=== PATIENT | female | born 1975 | race Caucasian/White ===

== ENCOUNTER → 2019-10-10 10:26 | Outpatient (CLI) | payer OTHER, SELFPAY ==
--- NOTE | ~2019-10-10 | MM_ITS ---
EXAMINATION: MM screening [place] BI w randy HISTORY: Screening mammogram TECHNIQUE: Craniocaudal and mediolateral oblique 3-D tomosynthesis images were obtained and synthetic 2-D images were generated. CAD analysis was submitted and interpreted. COMPARISON: No prior mammogram is available for comparison at this institution. BREAST PARENCHYMAL COMPOSITION: The breasts are heterogeneously dense, which may obscure small masses ........... FINDINGS: There is no evidence of suspicious mass, calcification, or architectural distortion to sugg est malignancy in either breast. There has been no suspicious interval change. IMPRESSION: 1. No mammographic evidence of malignancy. 2. Recommend routine screening mammography in one year. BI-RADS Category 1: Negative Reviewed, dictated and finalized at location A.
--- NOTE | ~2019-10-10 | US_ITS ---
EXAMINATION: US transvaginal DATE: 10/10/2019 11:15 INDICATION: Menorrhagia TECHNIQUE: Multiple endovaginal sonographic images of the pelvis were obtained. COMPARISON: None. FINDINGS: The uterus measures 10.0 x 5.4 x 7.2 cm. There are several intramural fibroids in the uteru s which measure up to 1.6 cm. The endometrial complex measures 16 mm. The right ovary measures 1.8 x 1.3 x 2.5 cm. The left ovary measures 1.5 x 1.6 x 1.9 cm. There is normal vascular flow in the ovari es. There is no free fluid in the pelvis. IMPRESSION: 1. No sonographic correlate for the patient's symptoms. Reviewed, dictated and finalized at location B.
== END ==
PROVIDERS: Visit Provider Nurse Practitioner
DX: Z12.31 Encounter for screening mammogram for malignant neoplasm of breast (principal); N92.0 Excessive and frequent menstruation with regular cycle
CPT/HCPCS: 76830; 77063; 77067

== ENCOUNTER 2020-02-09 18:01 | Emergency (ER) | payer OTHER, SELFPAY ==
--- NOTE | ~2020-02-09 | XR_ITS ---
EXAMINATION: XR chest 2V EXAM DATE: 02/09/2020 19:03 INDICATION: Mid chest pain, shortness of breath on exertion. Dizziness. TECHNIQUE: Frontal and lateral projections of the chest obtained and reviewed. Comparison is made to prior examination from 07/05/2017. FINDINGS: The lungs are clear. There are no pleural effusions. The cardiomediastinal silhouette is within normal limits. There is no pneumothorax suspected. The bones and soft tissues are unremarkab le. There is no significant interval change. IMPRESSION: No acute cardiopulmonary findings. Reviewed, dictated and finalized at location A.
--- NOTE | 2020-02-09 18:06 | ECG_ITS ---
Measurements Intervals [place] Rate: 114 P: -19 IA: 124 QRS: -18 QRSD: 90 T: -20 QT: 298 QTc: 411 Interpretive Statements SINUS TACHYCARDIA MINIMAL Q WAVES- HIGH LATERAL LEADS BORDERLINE T WAVE ABNORMALITY- ANTEROLAT/INF LEADS BASELINE ARTIFACT- I, III, AVL ABNORMAL ECG Electronically Signed On 02-09-2020 19:48:04 CDT by Chris Sal D.O.
[2020-02-09 18:07] VITALS: BP 136/103; PULSE 117; RESP 19; TEMP 36.2; O2SAT 100
[2020-02-09 18:25] LABS: Basophils Absolute Auto 0.1 K/mm3 (0.0-0.1); Basophils Percent Auto 0.8 % (0.2-1.2); Eosinophils Absolute Auto 0.1 K/mm3 (0-0.3); Eosinophils Percent Auto 1.5 % (0-4.4); Hematocrit 39.9 % (37.0-47.0); Immature Granulocyte Absolute 0.03 K/mm3 (0.00-0.031); Immature Granulocyte Percent A 0.3 % (0-0.5); Lymphocytes Absolute Auto 1.92 K/mm3 (0.9-3.2); Lymphocytes Percent Auto 22.3 % (18.3-44.2); Mean Corpuscular HGB Conc 32.6 g/dl (32-36); Mean Corpuscular Hemoglobin 27.8 pg (26-34); Mean Corpuscular Volume 85.3 fl (80-100); Monocytes Absolute Auto 0.6 K/mm3 (0.1-0.6); Monocytes Percent Auto 6.7 % (2.6-8.5); Neutrophils Absolute Auto 5.9 K/mm3 (1.3-6.7); Neutrophils Percent Auto 68.4 % (45.5-73.1); Platelet Count Result 358 k/mm3 (150-375); Red Blood Count 4.68 M/mm3 (4.2-5.4); Red Cell Distribution Width 13.7 % (11.5-14.5); White Blood Count 8.6 K/mm3 (4.5-10.0)
[2020-02-09 18:39] LABS: Anion Gap 14.1 mmol/L (7-16); Blood Urea Nitrogen 14 mg/dL (7-17); Calcium 9.4 mg/dL (8.4-10.2); Carbon Dioxide 25 mmol/L (22-30); Chloride 101 mmol/L (98-107); Estimated CRCL calculation 98 ml/min; Estimated Glomerular Filt Rate > 60; Glucose 93 mg/dL (65-105); Potassium 4.1 mmol/L (3.4-5.0); Sodium 136 mmol/L (137-145)
[2020-02-09 18:47] LABS: Prothrombin Time 13.1 Seconds (11.1-14.7)
[2020-02-09 18:49] LABS: Partial Thromboplastin Time 30.9 SECONDS (22.3-36.8)
[2020-02-09 18:50] LABS: Troponin I < 0.012 ng/mL (0.000-0.034)
--- NOTE | 2020-02-09 20:03 | ED.CHESTPAIN ---
HPI - Chest Pain General Chief Complaint: Chest Pain Stated Complaint: High Blood Pressure Time Seen by Provider: 02/09/20 20:03 Source: patient and family Mode of arrival: ambulatory Limitations: no limitations History of Present Illness HPI narrative: Patient is a 44-year-old female with a history of hypertension, anxiety who presents for evaluation of chest pain. Patient has had chest pain intermittently over the past 48 hours. Pain is described as intermittently sharp in nature, in the center of her chest without radiation to her back. No abdominal pain. No nausea. Patient has had associated diaphoresis and shortness of breath. No calf swelling, edema or pain. She is not taking control. Patient did have a recent flight to [place] 3 weeks ago. Patient has a positive family history of coronary artery disease. She does not smoke. Patient denies any chest pain currently. Related Data Home Medications Medication Instructions Recorded Confirmed dextroamphetamine-amphetamine PO 02/09/20 [Adderall XR] lamotrigine 02/09/20 metoprolol succinate PO 02/09/20 venlafaxine mg PO 02/09/20 Allergies Allergy/AdvReac Type Severity Reaction Status Date / Time Penicillins Allergy Unknown Hives Verified 02/09/20 18:13 Review of Systems Review of Systems: Narrative: CONSTITUTIONAL: Denies fever, chills EYES: Denies visual changes, redness, or discharge. ENT: Denies rhinorrhea, congestion, sore throat, or otalgia. CARDIOVASCULAR: Denies current chest pain, palpitations, or edema. RESPIRATORY: Denies cough or current dyspnea. GASTROINTESTINAL: Denies abdominal pain, nausea, vomiting, or diarrhea. GENITOURINARY: Denies dysuria or hematuria. SKIN: Denies rash or itching. MUSCULOSKELETAL: Denies back pain, joint pain, or myalgia. NEUROLOGIC: Denies headache, numbness, or weakness. PSYCHIATRIC: History of anxiety [facility] Past Medical History Medical History (Updated 02/09/20 @ 21:58 by Sue Law MD) Hypertension Family History Family History (Updated 11/05/14 @ 08:26 by DOCTOR UNKNOWN) Other Diabetes mellitus Family history of coronary artery disease Social History Social History Smoking status: Never smoker Alcohol intake: never Gender identity (if verbalized by the patient): Female Exam Narrative: Exam Narrative: GENERAL: Awake, alert, conversant HEAD: Normocephalic, atraumatic. EYES: PERRLA and EOMI. ENT: Nares clear, no rhinorrhea or epistaxis. Mucous membranes moist. NECK: Supple. CHEST: No respiratory distress, breathing even and non labored HEART: Regular rate, sinus rhythm ABDOMEN:Non distended, non tender EXTREMITIES: Normal range of motion. No edema. No calf tenderness bilaterally. SKIN: Warm, dry, no rash. NEURO:No focal deficits. Alert and oriented x3 Course Vital Signs Vital signs: Vital Signs Temperature 36.2 C L 02/09/20 18:07 Pulse Rate 117 H 02/09/20 18:07 Respiratory Rate 19 02/09/20 18:07 Blood Pressure 136/103 H 02/09/20 18:07 Pulse Oximetry 100 02/09/20 18:07 Temperature 36.2 C L 02/09/20 18:07 Pulse Rate 82 02/09/20 21:13 Respiratory Rate 20 02/09/20 21:13 Blood Pressure 131/99 H 02/09/20 21:13 Pulse Oximetry 99 02/09/20 21:13 MDM - Chest Pain MDM Narrative Medical decision making narrative: Patient's EKG and labs are without significant high risk changes. Cardiac risk factors reviewed. Patient is felt low risk for ACS and reasonable for further risk stratification testing as an outpatient. Patient does have some atypical EKG findings, but normal d-dimer, thus I doubt PE, furthermore patient has no hypoxemia. Patient has 2 troponins which are undetected. Furthermore, pain was not sudden or maximal or onset without tearing or ripping quality. No other signs or symptoms to suggest aortic dissection. No pneumonia seen on evaluation today. Patient is felt to be a reasonab
[2020-02-09 20:10] VITALS: BP 125/88; PULSE 100; RESP 20; O2SAT 100
[2020-02-09] MEDS: ASPIRIN 81 MG CHEWABLE TABLET 324 MG PO (20:15)
--- NOTE | 2020-02-09 20:24 | PC.NURSE ---
CALLED LAB. NOTIFIED OF ADD ON LABS
[2020-02-09 20:57] LABS: D Dimer < 0.22 ug/mL (<0.48)
[2020-02-09 20:59] LABS: NT Pro B Type Natriuretic Pept 25 PG/ML (5-100)
[2020-02-09 21:13] VITALS: BP 131/99; PULSE 82; RESP 20; O2SAT 99
[2020-02-09 21:46] LABS: Troponin I < 0.012 ng/mL (0.000-0.034)
[2020-02-09 22:28] VITALS: BP 127/90; PULSE 94; RESP 20; O2SAT 99
== END 2020-02-09 22:30 | disposition home or self-care (01) ==
PROVIDERS: Emergency Medicine; Emergency Provider Emergency Medicine
DX: R07.89 Other chest pain (principal); I10 Essential (primary) hypertension; F41.9 Anxiety disorder, unspecified; R00.0 Tachycardia, unspecified; R94.31 Abnormal electrocardiogram [ECG] [EKG]
CPT/HCPCS: 36415; 71046; 80048; 83880; 84443; 84484; 85025; 85380; 85610; 85730; 93005; 99284; A9270

== ENCOUNTER 2020-03-11 11:01 | Emergency (ER) | payer OTHER, SELFPAY ==
--- NOTE | ~2020-03-11 | XR_ITS ---
EXAMINATION: XR abdomen/kub 1V DATE: 03/11/2020 14:41 INDICATION: Missing intrauterine device. Vaginal bleeding. TECHNIQUE: A supine view of the abdomen on 2 radiographs was obtained. COMPARISON: Ultrasound 03/11/2020 FINDINGS: There are no dilated loops of bowel. Calcifications in the pelvis are likely phleboliths. IMPRESSION: 1. No intrauterine device. Reviewed, dictated and finalized at location B. IMPRESSION: 1. No intrauterine device.
--- NOTE | ~2020-03-11 | US_ITS ---
EXAMINATION: US pelvic complete w TV DATE: 03/11/2020 12:44 INDICATION: Abnormal uterine bleeding. Intrauterine device. TECHNIQUE: Multiple transabdominal and transvaginal sonographic images of the pelvis were obtained. COMPARISON: Ultrasound 10/10/2019, CT 08/30/2019 FINDINGS: TRANSABDOMINAL ULTRASOUND: The uterus measures 8.8 x 6.2 x 5.1 cm. There is no free fluid in the pelvis. TRANSVAGINAL ULTRASOUND: The endometrial complex measures 11 mm in thickness. There is no intrauterine device. There is a 2.1 cm hypoechoic intramural fibroid. There is a 1.9 cm hypoechoic intramural fibroid. The right ovary me asures 2.6 x 1.8 x 2.5 cm. The left ovary measures 2.4 x 1.5 x 1.6 cm. IMPRESSION: 1. Uterine fibroids. 2. No intrauterine device identified. Reviewed, dictated and finalized at location B.
[2020-03-11 11:07] VITALS: BP 132/84; PULSE 94; RESP 16; TEMP 35.7; O2SAT 98
[2020-03-11 11:38] LABS: Basophils Absolute Auto 0.1 K/mm3 (0.0-0.1); Basophils Percent Auto 0.7 % (0.2-1.2); Eosinophils Absolute Auto 0.2 K/mm3 (0-0.3); Eosinophils Percent Auto 2.5 % (0-4.4); Hematocrit 34.1 % (37.0-47.0); Hemoglobin 11.5 g/dL (12.0-15.0); Immature Granulocyte Absolute 0.05 K/mm3 (0.00-0.031); Immature Granulocyte Percent A 0.5 % (0-0.5); Lymphocytes Absolute Auto 2.48 K/mm3 (0.9-3.2); Lymphocytes Percent Auto 26.1 % (18.3-44.2); Mean Corpuscular HGB Conc 33.7 g/dl (32-36); Mean Corpuscular Hemoglobin 28.4 pg (26-34); Mean Corpuscular Volume 84.2 fl (80-100); Monocytes Absolute Auto 0.6 K/mm3 (0.1-0.6); Monocytes Percent Auto 6.4 % (2.6-8.5); Neutrophils Percent Auto 63.8 % (45.5-73.1); Platelet Count Result 292 k/mm3 (150-375); Red Blood Count 4.05 M/mm3 (4.2-5.4); Red Cell Distribution Width 13.5 % (11.5-14.5); White Blood Count 9.5 K/mm3 (4.5-10.0)
--- NOTE | 2020-03-11 11:41 | ED.FEMALEGU ---
HPI - Female Genitourinary General Chief complaint: Vaginal Bleeding Stated complaint: vaginal bleeding Time Seen by Provider: 03/11/20 11:33 Source: patient Mode of arrival: ambulatory Limitations: no limitations History of Present Illness HPI Narrative: This is a 44-year-old female that presents to the emergency department for abnormal uterine bleeding. Reports she has been struggling with this for a while. She was supposed to get a D&C but with COVID heading they ended up putting an IUD to see if this helps. Reports she has had the IUD for the last 3 months. Reports she has had intermittent light bleeding since. Reports today she started having very heavy bleeding and was feeling lightheaded which prompted her to be seen. Denies fever, chest pain, shortness of breath, dysuria. Related Data Home Medications Medication Instructions Recorded Confirmed dextroamphetamine-amphetamine PO 02/09/20 [Adderall XR] lamotrigine 100 mg PO DAILY 02/09/20 metoprolol succinate PO 02/09/20 venlafaxine 75 mg PO 02/09/20 Allergies Allergy/AdvReac Type Severity Reaction Status Date / Time Penicillins Allergy Unknown Hives Verified 03/11/20 11:13 Review of Systems Review of Systems: Narrative: CONSTITUTIONAL: Denies fever CARDIOVASCULAR: Denies chest pain RESPIRATORY: Denies dyspnea. GASTROINTESTINAL: Denies abdominal pain, nausea, vomiting GENITOURINARY: Denies dysuria All systems reviewed & are unremarkable except as noted in HPI and below PMFSH Past Medical History Medical History (Updated 03/11/20 @ 15:54 by Rasheeda Drew PA-C) History of depression Hypertension Family History Family History (Updated 11/05/14 @ 08:26 by DOCTOR UNKNOWN) Other Diabetes mellitus Family history of coronary artery disease Social History Social History Smoking status: Never smoker Alcohol intake: never Gender identity (if verbalized by the patient): Female Exam Narrative: Exam Narrative: GENERAL: Well-appearing, obese, and in no acute distress. HEAD: Normocephalic, atraumatic. EYES: PERRLA and EOMI. NECK: Supple. No adenopathy or masses. CHEST: Clear to auscultation. No respiratory distress. No wheezes rales or rhonchi HEART: Regular rate and rhythm. No murmur heard. Normal peripheral pulses. ABDOMEN: Soft, nontender, nondistended, normal active bowel sounds. EXTREMITIES: Normal range of motion. No edema. SKIN: Warm, dry, no rash. NEURO: No focal deficits. Alert and oriented x3. PSYCH: Normal mood and affect Course Vital Signs Vital signs: Vital Signs Temperature 96.2 F L 03/11/20 11:07 Pulse Rate 94 03/11/20 11:07 Respiratory Rate 16 03/11/20 11:07 Blood Pressure 132/84 03/11/20 11:07 Pulse Oximetry 98 03/11/20 11:07 Temperature 96.2 F L 03/11/20 11:07 Pulse Rate 98 03/11/20 15:27 Respiratory Rate 20 03/11/20 15:27 Blood Pressure 146/90 H 03/11/20 15:27 Pulse Oximetry 99 03/11/20 15:27 MDM - Female Genitourinary MDM Narrative Medical decision making narrative: Patient presents the emergency department for abnormal uterine bleeding. Had an IUD placed 3 months ago. She is afebrile and nontoxic-appearing. Vitals are stable. She is not orthostatic. Hemoglobin is 11.5. Bedside test is negative. Pelvic ultrasound shows uterine fibroids. Her IUD was not identified. Abdomen x-ray also does not identify an IUD. Spoke with Dr. Paulnio about patient and work-up. Patient's IUD likely has fallen out at some time which is causing her to have heavy bleeding again. Patient will be started on Lysteda and will follow-up in clinic. Patient is stable and felt appropriate for further outpatient evaluation. She was given warnings to return to the ER Lab Data Attestation: I reviewed the patient's lab results. Result diagrams: 03/11/20 11:30 Labs: Lab Results 03/11/20 03/11/20 03/11/20 Range/Uni
[2020-03-11 12:19] LABS: Partial Thromboplastin Time 30.9 SECONDS (22.3-36.8)
[2020-03-11] MEDS: SODIUM CHLORIDE 0.9% IV 1,000 ML 999 ML IV CONT (12:38)
[2020-03-11 15:25] VITALS: BP 134/87; PULSE 96; RESP 20; O2SAT 99
[2020-03-11 15:26] VITALS: BP 144/84; PULSE 94; RESP 20; O2SAT 99
[2020-03-11 15:27] VITALS: BP 146/90; PULSE 98; RESP 20; O2SAT 99
[2020-03-11 16:12] VITALS: BP 144/84; PULSE 99; RESP 16; O2SAT 99
== END 2020-03-11 16:13 | disposition home or self-care (01) ==
PROVIDERS: Physician Assistant; Emergency Provider Emergency Medicine
DX: N93.8 Other specified abnormal uterine and vaginal bleeding (principal); T83.32XA Displacement of intrauterine contraceptive device, initial encounter; F32.9 Major depressive disorder, single episode, unspecified; I10 Essential (primary) hypertension; D25.9 Leiomyoma of uterus, unspecified
CPT/HCPCS: 36415; 74018; 76830; 76856; 81025; 85025; 85610; 85730; 86850; 86900; 86901; 96360; 99284; J7030

== ENCOUNTER 2020-04-26 02:38 | Outpatient (CLI) | payer OTHER, SELFPAY ==
[2020-04-26 23:12] LABS: SARS-CoV-2 RNA PCR Negative
== END 2020-04-26 02:39 | disposition home or self-care (01) ==
LOC: ANHCOVIDDT 02:38
PROVIDERS: PCP Nurse Practitioner Family; Visit Provider Obstetrics & Gynecology Gynecology
DX: Z01.812 Encounter for preprocedural laboratory examination (principal); Z20.828 Contact with and (suspected) exposure to other viral communicable diseases
CPT/HCPCS: 87635; C9803; U0003

== ENCOUNTER 2020-04-29 00:45 | Day surgery (SDC) | payer OTHER, SELFPAY ==
[2020-04-22 11:49] VITALS: BMI 34.9
--- NOTE | 2020-04-29 07:09 | PM.HPGS ---
History of Present Illness History of Present Illness Consent: Risks, benefits, and alternatives have been discussed and questions answered. Patient agrees to proceed with procedure. Chief complaint: Menorrhagia/ Uterine Fibroids Narrative: Inge Nicole is a 44 year old female with menorrhagia. Patient s/p hysteroscopy with EMB that was benign. Showed a sessile fibroid. Due to covid restricting surgery, placed IUD for attempted cycle control without success. Patient has decided to proceed with hysteroscopy, myomectomy, and endometrial ablation. Will remove IUD as well. Risks of infection, bleeding, perforation, and fluid imbalance reviewed. Discussed if unable to fully remove the fibroid due to fluid imbalance, would need to have another procedure. Success reviewed with patient for ablation. She agrees to proceed. [facility] Past Medical History Medical History (Updated 04/29/20 @ 07:15 by Emily Paulino MD) History of depression Hypertension (normal spontaneous vaginal delivery) x 2 Status post hysteroscopy Surgical History Surgical History (Updated 04/29/20 @ 07:13 by Emily Paulino MD) S/P tubal ligation Family History Family History (Updated 11/05/14 @ 08:26 by DOCTOR UNKNOWN) Other Diabetes mellitus Family history of coronary artery disease Social History Social History Smoking status: Never smoker Alcohol intake: never Gender identity (if verbalized by the patient): Female Spiritual care concerns: No Meds Home Medications and Allergies Home Medications Medication Instructions Recorded Confirmed Type lamotrigine 100 mg PO DAILY 02/09/20 04/22/20 History metoprolol succinate 25 mg PO DAILY 02/09/20 04/22/20 History venlafaxine 75 mg PO DAILY 02/09/20 04/22/20 History Vitamin D3 1 tablet PO DAILY 04/22/20 04/22/20 History albuterol sulfate 1 puff INHALATION Q4H PRN 04/22/20 04/22/20 History iron 1 tablet PO DAILY 04/22/20 04/22/20 History levonorgest-eth.estradiol-iron 1 tablet PO DAILY 04/22/20 04/22/20 History [Balcoltra] Allergies Allergy/AdvReac Type Severity Reaction Status Date / Time Penicillins Allergy Unknown Hives Verified 04/22/20 11:49 Exam Const: General: healthy appearing : External Female Exam: normal external appearance Speculum Exam - Vagina: normal appearance of the vagina Speculum Exam - Cervix: normal appearance of the cervix Bimanual exam- vagina & uterus: normal bimanual exam and uterine size normal Bimanual Exam- Adnexa, other: normal adnexae Assessment and Plan Assessment and plan (1) Menorrhagia: Code(s): N92.0 - Excessive and frequent menstruation with regular cycle Status: Acute Assessment and Plan: Plan to proceed with endometrial ablation and removal of IUD (2) Fibroids: Code(s): D21.9 - Benign neoplasm of connective and other soft tissue, unspecified Status: Acute Assessment and Plan: Plan myosure resection of sessile submucosal fibroid
[2020-04-29] MEDS: LACTATED RINGERS 1,000 ML 30 ML IV CONT ×2 (07:43→10:16)
[2020-04-29] MEDS: ACETAMINOPHEN 500 MG TABLET 1000 MG PO (07:43)
[2020-04-29 07:45] VITALS: BP 133/80; PULSE 86; RESP 20; TEMP 36.9; O2SAT 97
--- NOTE | 2020-04-29 07:52 | WPDHPUPDATE1 ---
History and Physical Update Update Date/Time: 04/29/20 07:52 History and Physical has been reviewed, including an updated exam of the patient. There are NO changes in the patient's condition. Risks, benefits, and alternatives have been discussed and questions answered. Patient agrees to proceed with procedure.
[2020-04-29] MEDS: ONDANSETRON INJ 4 MG/2 ML VIAL IV PUSH ×2 (07:55→10:14)
--- NOTE | 2020-04-29 08:13 | WPDANESEPPF ---
Anes - Initial Pre Proc Eval Procedure: Operation Date: 04/29/20 09:00 Proposed Procedures p Hysteroscopy, Dilation And Curettage With Myosure, Lyssa Endometrial Ablation - Emily Paulino MD Date/Time: 04/29/20 08:13 Surgeon: Emily Paluino MD Pre Op Diagnosis: Menorrhagia/ Uterine Fibroids Patient Data Age: 44 Gender: F Height: 5 ft 8 in Weight: 104.33 kg Allergies Allergy/AdvReac Type Severity Reaction Status Date / Time Penicillins Allergy Unknown Hives Verified 04/22/20 11:49 Home Medications Medication Instructions Recorded Confirmed Type lamotrigine 100 mg PO DAILY 02/09/20 04/22/20 History metoprolol succinate 25 mg PO DAILY 02/09/20 04/22/20 History venlafaxine 75 mg PO DAILY 02/09/20 04/22/20 History Vitamin D3 1 tablet PO DAILY 04/22/20 04/22/20 History albuterol sulfate 1 puff INHALATION Q4H PRN 04/22/20 04/22/20 History iron 1 tablet PO DAILY 04/22/20 04/22/20 History levonorgest-eth.estradiol-iron 1 tablet PO DAILY 04/22/20 04/22/20 History [Balcoltra] Patient hx anesthesia problems: none Family hx anesthesia problems: none PMFSH Past Medical History Medical History History of depression Hypertension (normal spontaneous vaginal delivery) x 2 Status post hysteroscopy Surgical History Surgical History S/P tubal ligation Family History Family History Other Diabetes mellitus Family history of coronary artery disease Social History Social History Smoking status: Never smoker Alcohol intake: never Gender identity (if verbalized by the patient): Female Spiritual care concerns: No Anes - Eval Final PreProcedure Day of Procedure 04/29/20 08:13 Patient weight: obese Heart: regular rate and rhythm Lungs: clear to auscultation Airway: Mallampati scale class II Neurological: alert and oriented Last oral intake: >/= 8 hours ASA classification: II Emergent: no Anesthetic plan: proceed Anesthesia type and monitoring: general GIVS and standard monitoring Informed Consent: The patient's anesthetic plan and its attendant risks and benefits were discussed with the patient/family/POA. Questions were solicited and answers provided to the satisfaction of the patient/family/POA.
--- NOTE | 2020-04-29 09:14 | PM.PROC ---
Procedure Note - Detailed Date of procedure: 04/29/20 Pre-op diagnosis: Menorrhagia/ Uterine Fibroids Post-op diagnosis: same Procedure performed: hysteroscopy; myosure resection of myoma; Lyssa endometrial ablation Description of procedure: The patient is taken to the operating room and placed under anesthesia in the dorsal lithotomy position. She is prepped and draped in the usual sterile fashion. A bivalve speculum is placed in the vagina and the cervix grasped on the anterior lip with a tenaculum. The cervix is serially dilated with Hegar. The uterus sounds to 10cm and the cervix is noted at 4cm. The diagnostic hysteroscope was placed with the stated findings. The MyoSure device is placed and the myoma removed until it is flush with the endometrial cavity. Medium sharp curette is used to sharply curette the endometrium until a good uterine cry is noted in all areas. The Lyssa device opened and placed the cavity assessment passed on the 1st attempt. The treatment cycle lasted the entire 2 minutes. The ablation device is removed and the hysteroscope replaced with a good ablation effect noted. All instruments are then removed. Anesthesia: MAC and local Surgeon: Emily Paulino MD Estimated blood loss (mL): 5 Drains: No Packing: No Pathology: yes (endometrial shavings and curettings) Complications: No immediate complications Condition: stable Disposition: PACU Findings: uterus 10 cm; cervix 4 cm; sessile submusosal fibroid at anterior fundus otherwise normal appearance
[2020-04-29 09:17] VITALS: BP 134/90; PULSE 83; RESP 14; O2SAT 100
[2020-04-29 09:40] VITALS: BP 143/90; PULSE 87; RESP 14
[2020-04-29] MEDS: oxyCODONE HCL (*CRX) 5 MG TAB IR PO (09:54)
[2020-04-29 10:15] VITALS: BP 140/89; PULSE 58; RESP 14
[2020-04-29 10:35] VITALS: BP 129/81; PULSE 49; RESP 14
== END 2020-04-29 10:45 | disposition home or self-care (01) ==
PROVIDERS: Visit Provider Obstetrics & Gynecology Gynecology
PROC: 0U5B8ZZ Destruction of Endometrium, Via Natural or Artificial Opening Endoscopic (ICD-10-PCS; CPT 58563; principal; 2020-04-29 09:00)
DX: N92.0 Excessive and frequent menstruation with regular cycle (principal); D25.9 Leiomyoma of uterus, unspecified; I10 Essential (primary) hypertension; F32.9 Major depressive disorder, single episode, unspecified; E66.9 Obesity, unspecified; Z68.34 Body mass index [BMI] 34.0-34.9, adult
CPT/HCPCS: 58563; 87635; 88305; A9270; C9803; J1885; J2250; J2405; J2704; J3010; J7030; J7120; U0003

== ENCOUNTER 2020-07-02 08:39 | Outpatient (NON) | payer OTHER, SELFPAY ==
[2020-07-03 01:42] LABS: SARS-CoV-2 RNA PCR Negative
== END 2020-07-02 08:40 ==
LOC: ANHCOVIDDT 08:40
PROVIDERS: Visit Provider Registered Nurse
DX: R51.9 Headache, unspecified (principal); R09.89 Other specified symptoms and signs involving the circulatory and respiratory systems; R19.7 Diarrhea, unspecified; Z20.828 Contact with and (suspected) exposure to other viral communicable diseases
CPT/HCPCS: 87635; C9803; U0003

== ENCOUNTER → 2021-07-16 02:15 | Outpatient (CLI) | payer OTHER, SELFPAY ==
[2021-07-17 02:22] LABS: SARS-CoV-2 RNA PCR Positive
== END ==
PROVIDERS: PCP Registered Nurse; Visit Provider Registered Nurse
DX: U07.1 COVID-19 (principal)
CPT/HCPCS: C9803; U0003; U0005

== ENCOUNTER 2021-12-23 15:53 | Outpatient (CLI) | payer OTHER, SELFPAY ==
[2021-12-23 16:10] LABS: Hematocrit 39.3 % (37.0-47.0); Hemoglobin 12.8 g/dL (12.0-15.0); Mean Corpuscular HGB Conc 32.6 g/dl (32-36); Mean Corpuscular Hemoglobin 29.6 pg (26-34); Platelet Count Result 343 k/mm3 (150-375); Red Blood Count 4.32 M/mm3 (4.2-5.4); Red Cell Distribution Width 13.4 % (11.5-14.5); White Blood Count 12.9 K/mm3 (4.5-10.0)
== END 2021-12-23 15:54 | disposition home or self-care (01) ==
LOC: ANHLAB 15:55
PROVIDERS: PCP Registered Nurse; Visit Provider Nurse Practitioner
DX: N92.0 Excessive and frequent menstruation with regular cycle (principal)
CPT/HCPCS: 36415; 85027

== ENCOUNTER 2022-06-18 18:30 | Observation (INO) | payer OTHER, SELFPAY ==
[2022-06-18 18:59] VITALS: BP 144/93; PULSE 101; RESP 18; TEMP 36.7; O2SAT 99
[2022-06-18 19:21] LABS: Basophils Absolute Auto 0.1 K/mm3 (0.0-0.1); Basophils Percent Auto 0.5 % (0.2-1.2); Eosinophils Absolute Auto 0.3 K/mm3 (0-0.3); Eosinophils Percent Auto 2.6 % (0-4.4); Hematocrit 36.4 % (37.0-47.0); Hemoglobin 11.6 g/dL (12.0-15.0); Immature Granulocyte Absolute 0.05 K/mm3 (0.00-0.031); Immature Granulocyte Percent A 0.4 % (0-0.5); Lymphocytes Absolute Auto 2.52 K/mm3 (0.9-3.2); Lymphocytes Percent Auto 19.5 % (18.3-44.2); Mean Corpuscular HGB Conc 31.9 g/dl (32-36); Mean Corpuscular Hemoglobin 26.6 pg (26-34); Mean Corpuscular Volume 83.5 fl (80-100); Mean Platelet Volume 8.9 fl (7.4-10.4); Monocytes Absolute Auto 0.6 K/mm3 (0.1-0.6); Monocytes Percent Auto 4.8 % (2.6-8.5); Neutrophils Absolute Auto 9.3 K/mm3 (1.3-6.7); Neutrophils Percent Auto 72.2 % (45.5-73.1); Platelet Count Result 443 k/mm3 (150-375); Red Blood Count 4.36 M/mm3 (4.2-5.4); White Blood Count 12.9 K/mm3 (4.5-10.0)
--- NOTE | 2022-06-18 19:36 | ED.FEMALEGU ---
HPI - Female Genitourinary General Chief complaint: Vaginal Bleeding Stated complaint: vaginal bleeding Time Seen by Provider: 06/18/22 19:30 Source: patient Mode of arrival: ambulatory Limitations: no limitations History of Present Illness HPI Narrative: Patient is a 46-year-old female with a history of uterine fibroids presenting for evaluation of vaginal bleeding. Patient reports she has had intermittent heavy vaginal bleeding over the past several months, has been on trials of tranexamic acid, hormonal therapy. She has had an endometrial ablation which did not improve her symptoms. Patient is scheduled for hysterectomy in December 2022. Patient reports mild pelvic cramping and distention. She states the bleeding significantly increased today feeling 1 pad every hour. She reports brisk bleeding and numerous large blood clots. Patient denies dysuria. She denies fever. She reports mild lightheadedness and dizziness. She denies syncopal event. Patient's SERVICE ORDER TAKER is Dr. Salazar, she was referred here for evaluation. Related Data Home Medications Medication Instructions Recorded Confirmed lamotrigine 100 mg tablet 100 mg PO DAILY 02/09/20 04/29/20 metoprolol succinate 25 mg 25 mg PO DAILY 02/09/20 04/29/20 tablet,extended release 24 hr venlafaxine 75 mg capsule,extended 75 mg PO DAILY 02/09/20 04/29/20 release 24 hr Vitamin D3 1 tablet PO DAILY 04/22/20 04/29/20 albuterol sulfate 90 mcg/actuation 1 puff inhalation Q4H PRN 04/22/20 04/29/20 aerosol inhaler Shortness Of Breath iron 1 tablet PO DAILY 04/22/20 04/29/20 levonorgestrel 0.1 1 tablet PO DAILY 04/22/20 04/29/20 mg-eth.estradiol 0.02 mg(21)/iron 36.5 mg(7) tablet (Balcoltra) Allergies Allergy/AdvReac Type Severity Reaction Status Date / Time Penicillins Allergy Unknown Hives Verified 06/18/22 19:33 Review of Systems Review of Systems: CONSTITUTIONAL: Denies fever, chills, or sweats. EYES: Denies visual changes, redness, or discharge. ENT: Denies rhinorrhea, congestion, sore throat, or otalgia. CARDIOVASCULAR: Denies chest pain, palpitations, or edema. RESPIRATORY: Denies cough or dyspnea. GASTROINTESTINAL: Denies abdominal pain, nausea, vomiting, or diarrhea. Reports mild pelvic pain. GENITOURINARY: Denies dysuria or hematuria. Reports vaginal bleeding without other discharge. SKIN: Denies rash or itching. MUSCULOSKELETAL: Denies back pain, joint pain, or myalgia. NEUROLOGIC: Denies headache, numbness, or weakness. Reports lightheadedness with standing. [facility] Past Medical History Medical History History of depression Hypertension (normal spontaneous vaginal delivery) x 2 Status post hysteroscopy Surgical History Surgical History S/P tubal ligation Family History Family History Other Diabetes mellitus Family history of coronary artery disease Social History Social History Smoking status: Never smoker Alcohol intake: never Gender identity (if verbalized by the patient): Female Spiritual care concerns: No Exam Narrative: GENERAL: Awake, alert, conversant HEAD: Normocephalic, atraumatic. EYES: PERRLA and EOMI. ENT: Nares clear, no rhinorrhea or epistaxis. Mucous membranes moist. NECK: Supple. CHEST: No respiratory distress, breathing even and non labored HEART: Regular rate, sinus rhythm ABDOMEN:Non distended, non tender : Labia majora and minora normal without lesions. Vagina with blood present; there is active bleeding. Approximately 15 cc blood present in vagina. No cervical motion tenderness. No adnexal tenderness or fullness bilaterally. No other discharge present. EXTREMITIES: Normal range of motion. No edema. SKIN: Warm, dry, no rash. NEURO:No focal deficits. Alert and oriented x3 [place]
[2022-06-18] MEDS: IBUPROFEN 600 MG TABLET PO (20:06)
[2022-06-18 20:36] LABS: Anion Gap 13 mmol/L (8-16); Blood Urea Nitrogen 18 mg/dL (7-17); Calcium 8.9 mg/dL (8.4-10.2); Carbon Dioxide 21 mmol/L (22-30); Chloride 104 mmol/L (98-107); Estimated CRCL calculation 89 ml/min; Estimated Glomerular Filt Rate > 60; Glucose 116 mg/dL (65-110); Potassium 3.9 mmol/L (3.4-5.0); Sodium 138 mmol/L (137-145)
[2022-06-18 20:37] LABS: INR 1.1; Partial Thromboplastin Time 30.6 SECONDS (22.3-36.8); Prothrombin Time 13.8 Seconds (11.1-14.7)
[2022-06-18] MEDS: ONDANSETRON INJ 4 MG/2 ML VIAL IV PUSH ×2 (20:47→21:26)
[2022-06-18] MEDS: TRANEXAMIC ACID 1,000MG/ISO100 1,000 MG/100 ML BAG 200 MG IVPB (20:49)
[2022-06-18 21:14] VITALS: BP 124/86; PULSE 96; RESP 18; O2SAT 100
--- NOTE | 2022-06-18 21:15 | PC.NURSE ---
2029-PATIENT WITH EMESIS X 3 OF UNDIGESTED FOOD. CHUX X ONE REMOVED. PAD HEAVILY SATURATED WITH BRIGHT RED BLOOD AND ONE BLOOD CLOT. NEW CHUX APPLIED. 2115-CHUX NUMBER TWO REMAINS UNDER PATIENT. MODERATELY SATURATED WITH THIN BRIGHT RED BLOOD. NO CLOTS. PATIENT C/O ABDOMINAL CRAMPING. REMAINS NAUSEATED.
[2022-06-18 21:34] LABS: Hematocrit 31.8 % (37.0-47.0); Hemoglobin 10.3 g/dL (12.0-15.0)
[2022-06-18] MEDS: SODIUM CHLORIDE 0.9% IV 1,000 ML 999 ML IV CONT (21:34)
[2022-06-18] MEDS: MORPHINE SULFATE (*CRX) 4 MG/ML INJ IV PUSH (21:35)
[2022-06-18 22:00] VITALS: BP 125/80; PULSE 80; RESP 20; O2SAT 100
--- NOTE | 2022-06-18 22:08 | PC.NURSE ---
2208-CHUX NUMBER TWO REMOVED. CHUX NUMBER TWO MODERATELY SATURATED WITH BRIGHT RED BLOOD BUT THIN IN APPEARANCE. NO CLOTS NOTED. PATIENT STATES SHE FEELS MUCH BETTER. DENIES PAIN OR NAUSEA.
--- NOTE | 2022-06-18 22:32 | PC.NURSE ---
2210-LARGE OB LOLI PAD APPLIED. ADVISED PATIENT NOT TO CHANGE PAD WITHOUT NOTIFYING STAFF.
--- NOTE | 2022-06-18 22:53 | PC.NURSE ---
6792-ATTEMPTED TO PROVIDE REPORT TO FLOOR. ROBERT STATES NURSE TAKING PATIENT IS IN A PATIENT ROOM AND WILL HAVE HER CALL ME BACK FOR REPORT. EXPLAINED TO ROBERT THIS RN LEAVES AT 2300 AND RECEIVING NURSE WILL BE TAKING REPORT FROM THIS NURSE'S REPLACEMENT.
--- NOTE | 2022-06-18 23:02 | PC.NURSE ---
2302-REPORT TO ROBERT LAY.
--- NOTE | 2022-06-18 23:25 | PC.NURSE ---
This patient was admitted to post Rm. 289 via stretcher.
[2022-06-18] MEDS: LACTATED RINGERS 1,000 ML 125 ML IV CONT (23:30)
--- NOTE | 2022-06-18 23:30 | PC.NURSE ---
2330- [place] pad had a small amount of bright red blood on it. New pad put on.
[2022-06-18 23:35] VITALS: BP 120/76; PULSE 65; RESP 18; TEMP 36.8
[2022-06-18 23:49] VITALS: BMI 30.2
[2022-06-19 00:06] LABS: SARS-CoV-2 RNA PCR Positive
--- NOTE | 2022-06-19 01:50 | PC.NURSE ---
0150- [place] pad had a small amount of blood on it with one quarter sized clot. New pad applied.
[2022-06-19] MEDS: TRANEXAMIC ACID 1,000 MG/10 ML AMPUL 1000 MG IV PUSH (03:43)
[2022-06-19 03:45] VITALS: BP 137/78; PULSE 74; RESP 18; TEMP 36.6; O2SAT 99
[2022-06-19] MEDS: ONDANSETRON INJ 4 MG/2 ML VIAL IV PUSH (03:49)
--- NOTE | 2022-06-19 03:50 | PC.NURSE ---
0350- [place] pad with small amount of blood noted and no clots. New pad applied.
[2022-06-19 03:57] LABS: Hematocrit 29.9 % (37.0-47.0); Hemoglobin 9.4 g/dL (12.0-15.0)
[2022-06-19] MEDS: IBUPROFEN 400 MG TABLET PO (07:28)
[2022-06-19] MEDS: LACTATED RINGERS 1,000 ML 125 ML IV CONT (07:29)
[2022-06-19 07:33] VITALS: BP 118/80; PULSE 77; RESP 18; TEMP 36.6; O2SAT 100
[2022-06-19] MEDS: TRANEXAMIC ACID 1,000MG/ISO100 1,000 MG/100 ML BAG 200 MG IVPB (10:03)
[2022-06-19] MEDS: ACETAMINOPHEN 325 MG TABLET 650 MG PO (10:18)
[2022-06-19] MEDS: medroxyPROGESTERone ACETATE IM 150 MG/ML SYR IM (10:31)
[2022-06-19 10:46] LABS: Hematocrit 28.9 % (37.0-47.0)
--- NOTE | 2022-06-19 19:47 | PC.NURSE ---
06/19/2022 All of this charting that will be mentioned was charted by Marge Barbosa RN under Anita Chery RN by mistake. I&O @ 1100, IV Line assessment @ 1245, Provider Communication Assessment @ 1107. Discharge Date & Time @ 1252. The charting itself is correct.
--- NOTE | 2022-06-20 09:26 | PM.IMHP ---
H&P: HPI History of Present Illness Date/Time: 06/19/22729 Chief Complaint: heavy vaginal bleeding Narrative: 46 yo admitted through the ER with heavy vaginal bleeding. Patient bleeding pad per hour for several hours. Patient given TXA IV in ER with resulting decrease in bleeding. Admitted overnight for continued TXA with good result. Patient bleeding down to light. Given 1 additional dose at 9:15 and discharged to continue oral dosing for 5 days. Patient with known fibroids and multiple conservative measures that have not been successful. Patient was planning hysterectomy but was trying to wait until next summer. She has been on Loestrin1.12/15 since early May. Review of Systems Review of Systems: All systems reviewed & are unremarkable except as noted in HPI and below (HPI) [facility] Past Medical History Medical History (Updated 06/20/22 @ 09:34 by Emily Paulino MD) History of depression and anxiety Hypertension (normal spontaneous vaginal delivery) x 2 Status post hysteroscopy Surgical History Surgical History (Updated 06/20/22 @ 09:32 by Emily Paulino MD) S/P endometrial ablation 2020 S/P myomectomy 2020 S/P tubal ligation Family History Family History (Updated 06/20/22 @ 09:32 by Emily Paulino MD) Father Hypertension Family history of coronary artery disease Grandparent Diabetes mellitus Social History Social History Smoking status: Never smoker Alcohol intake: never Lack of Transportation: No Lack of Food: Never True Current Housing: I Have Housing Concerned About Future Housing: No Difficulty Paying Gas/Electric Bills: No Difficulty Paying for Meds: No Currently Unemployed: No Education: Master's Degree or Higher Difficulty w/ Childcare or Family Care: No Gender identity (if verbalized by the patient): Female Spiritual care concerns: No Meds Home Medications and Allergies Home Medications Medication Instructions Recorded Confirmed Type lamotrigine 100 mg tablet 100 mg PO DAILY 02/09/20 06/18/22 History (Lamictal) venlafaxine 75 mg capsule,extended 75 mg PO BID 02/09/20 06/18/22 History release 24 hr Vitamin D3 1 tablet PO DAILY 04/22/20 06/18/22 History albuterol sulfate 90 mcg/actuation 1 puff inhalation Q4H PRN 10/05/20 12/01/22 History aerosol inhaler Shortness Of Breath dextroamphetamine-amphetamine ER 1 cap PO DAILY PRN ADHD 06/18/22 06/18/22 History 30 mg 24hr capsule,extend release tranexamic acid 650 mg tablet 1,300 mg PO Q8H #30 tabs 06/19/22 Rx Allergies Allergy/AdvReac Type Severity Reaction Status Date / Time Penicillins Allergy Unknown Hives Verified 06/18/22 19:33 Exam Narrative: patient tested + so I did not repeat the exam as it was done in the ER and recently in the office Const: General: no acute distress H&P: Results Labs Labs: Short CBC 06/19/22 Range/Units 10:27 Hgb 9.0 L (12.0-15.0) g/dL Hct 28.9 L (37.0-47.0) % Assessment and Plan Assessment and plan (1) Menorrhagia: Code(s): N92.0 - Excessive and frequent menstruation with regular cycle Status: Acute Assessment and Plan: Plan to discharge home on Lysteda 1300 mg TID x 5 days. Patient to call office to schedule hysterectomy. (2) Fibroids: Code(s): D21.9 - Benign neoplasm of connective and other soft tissue, unspecified Status: Acute (3) Anemia: Code(s): D64.9 - Anemia, unspecified Status: Acute Assessment and Plan: iron BID
--- NOTE | 2022-06-20 09:35 | PM.DS ---
DS: Admitting Diagnosis Discharge Date 06/19/22 Admitting Diagnosis menorrhagia anemia fibroids DS: Discharge Diagnosis Discharge Diagnosis (1) Menorrhagia: Code(s): N92.0 - Excessive and frequent menstruation with regular cycle Status: Acute (2) Uterine fibroid: Code(s): D25.9 - Leiomyoma of uterus, unspecified Status: Acute (3) Anemia: Code(s): D64.9 - Anemia, unspecified Status: Acute DS: Summary Hospital Course Reason for hospitalization: heavy vaginal bleeding Hospital Course: received TXA 1000 mg q 6 hours until discharge with resulting decrease in vaginal bleeding Status at Discharge Functional status at discharge: independent ambulation Overall status at discharge: patient is progressing back to baseline Time Spent with Patient Time attestation: Total time spent providing and/or coordinating discharge services: DS: Data Data Completed and Pending Labs on day of discharge: Labs from last 24 hours 06/19/22 10:27 Hgb 9.0 L Hct 28.9 L Discharge Plan Discharge Consulting providers: Emily Paulino Discharging Clinician: Emily Paulino Anticipated Discharge Date/Time: 06/19/22 12:30 Patient Disposition: Home, Self-Care Activity: as tolerated Diet: regular Discharge Instructions: Some Complications to Watch for: ? Excessive incisional or vaginal drainage (more than one pad an hour). Additional Instructions: ? Expect some vaginal spotting for 2-4 days. ? Nothing vaginally (i.e. douching, intercourse, tampons) until follow up visit. Patient Instructions: Abnormal (Dysfunctional) Uterine Bleeding (DC), COVID-19 (Coronavirus Disease 2019) (DC) Follow-up/Referrals: Emily Paulino MD [Physician] - Discharge Medications: New tranexamic acid 650 mg tablet 1,300 mg PO Q8H Qty: 30 1RF Continued venlafaxine 75 mg capsule,extended release 24hr 75 mg PO BID lamotrigine [Lamictal] 100 mg tablet 100 mg PO DAILY Vitamin D3 1 tablet PO DAILY albuterol sulfate 90 mcg/actuation HFA aerosol inhaler 1 puff INHALATION Q4H PRN (Reason: Shortness Of Breath) dextroamphetamine-amphetamine 30 mg capsule,extended release 24hr 1 cap PO DAILY PRN (Reason: ADHD) Discontinued norethindrone-e.estradiol-iron [Shannen Fe 1.5/30 (28)] 1.5 mg-30 mcg (21)/75 mg (7) tablet 1 tablet PO DAILY Date of admission: 06/18/22 22:16 Primary Care Provider: Eula,Sunita Admitting Provider: Emily Paulino Attending physician on admission: Emily Paulino Condition: Stable
== END 2022-06-19 12:52 | disposition home or self-care (01) ==
LOC: ANHED 22:20 → ANHOB2 22:46
PROVIDERS: Emergency Medicine; Admitting Provider Obstetrics & Gynecology Gynecology; Emergency Provider Emergency Medicine; PCP Registered Nurse; Visit Provider Obstetrics & Gynecology Gynecology
DX: N92.0 Excessive and frequent menstruation with regular cycle (principal); U07.1 COVID-19; N99.85 Post endometrial ablation syndrome; Z98.51 Tubal ligation status; R42 Dizziness and giddiness; D21.9 Benign neoplasm of connective and other soft tissue, unspecified; D64.9 Anemia, unspecified; F32.A Depression, unspecified; F41.9 Anxiety disorder, unspecified; I10 Essential (primary) hypertension; Z79.51 Long term (current) use of inhaled steroids; Z79.899 Other long term (current) drug therapy
CPT/HCPCS: 36415; 80048; 84443; 85014; 85018; 85025; 85610; 85730; 86850; 86900; 86901; 96361; 96365; 96372; 96374; 96375; 96376; 99285; A9270; G0378; J1050; J2270; J2405; J7030; J7120; U0003; U0005

== ENCOUNTER 2022-08-03 13:23 | Outpatient (CLI) | payer OTHER, SELFPAY ==
[2022-08-03 13:58] LABS: Hematocrit 36.9 % (37.0-47.0); Hemoglobin 11.5 g/dL (12.0-15.0)
== END 2022-08-03 13:24 | disposition home or self-care (01) ==
LOC: ANHSURGERY 13:28
PROVIDERS: PCP Registered Nurse; Visit Provider Obstetrics & Gynecology Gynecology
DX: Z01.818 Encounter for other preprocedural examination (principal); N92.0 Excessive and frequent menstruation with regular cycle
CPT/HCPCS: 36415; 85014; 85018; 86850; 86900; 86901

== ENCOUNTER 2022-08-10 10:26 | Inpatient (IN) | payer OTHER, SELFPAY ==
[2022-07-30 11:08] VITALS: BMI 30.4
--- NOTE | 2022-07-30 11:12 | PC.NURSE ---
Report to the Outpatient Waiting Room, entrance under the green pavilion located off [facility], at time 6:00 on date 08/10/22. Planned Procedure Time: 7:30. Time changes happen often and if your time is changed the preop area will call you the afternoon before. - You and your visitor will be asked to self-screen and do not enter if you have any COVID symptoms. - Only one visitor is requested with a max of two and NO children visitors are allowed at this time. - The patient visitor may be requested to leave or wait in car when not with patient due to distancing restrictions. - A mask is REQUIRED within the hospital. Patients may have clear liquids (water, carbonated beverages, clear teas, apple juice) until 3 hours prior to surgery (4:30) with a maximum of 20 ounces. - No food from midnight until time of surgery Take the following medications with a SIP of water the morning of surgery: LAMICTAL, EFFEXOR Medications to discontinue per physician: VITAMINS/SUPPLEMENTS Date to take last dose: 08/06/22 Please no make-up, nail korean, hairspray, perfume, deodorant, or body powder the day of surgery. No jewelry (including any body piercings) or valuables the day of surgery, leave them at home. Please take a shower or bath the night before, or the morning of, surgery with an antibacterial soap. Wear comfortable, loose fitting clothing. - Jewelry must be removed prior to entering the operating room. Rings and piercings that are not removed may be cut off. - The hospital will not accept responsibility for valuables. - Please leave all valuables, including medications, at home the day of surgery. If you are going home after surgery, a licensed seasonal driver must drive you home. - NO public transportation without another adult if you receive anesthesia. - We recommend that an adult stay with you for 24 hours following discharge. - We also recommend that you do not drive, make important decision, drink alcoholic beverages, or take any drugs that were not prescribed by your health care provider for at least 24 hours after your discharge time. Follow any additional instructions given to you from your surgeon. If you or anyone in your household have experienced Covid symptoms in the past week, please notify your surgeon or the nurse liaison at the phone number below for possible testing. Telephone instructions given to PT Gia VAUGHAN and asked if any additional questions and then verbalized understanding. Patient advised to call surgeon office or pre surgery nurse liaison [phone] if any additional questions.
[2022-08-10] VITALS (27 sets, daily range): BP systolic 126–152; BP diastolic 71–97; PULSE 51–92; RESP 12–18; TEMP 36.1–36.9; O2SAT 91–100
--- NOTE | 2022-08-10 06:51 | WPDANESEPPF ---
Anes - Initial Pre Proc Eval Procedure: Operation Date: 08/10/22 07:30 Proposed Procedures p Total Abdominal Hysterectomy with Bilateral Salpingo-oophorectomy - Emily Paulino MD Date/Time: 08/10/22 06:51 Surgeon: Emily Paulino MD Pre Op Diagnosis: Menorrhagia Patient Data Age: 46 Gender: F Height: 1.73 m Weight: 90.72 kg Allergies Allergy/AdvReac Type Severity Reaction Status Date / Time Penicillins Allergy Unknown Hives Verified 08/10/22 06:53 Home Medications Medication Instructions Recorded Confirmed Type lamotrigine 100 mg tablet 100 mg PO DAILY 02/09/20 07/30/22 History (Lamictal) venlafaxine 75 mg capsule,extended 75 mg PO BID 02/09/20 07/30/22 History release 24 hr dextroamphetamine-amphetamine ER 1 cap PO DAILY PRN ADHD 06/18/22 07/30/22 History 30 mg 24hr capsule,extend release multivitamin 1 tablet PO DAILY 07/30/22 07/30/22 History ECG: Date of Service: 02/09/20 Procedure(s): CA 12 lead EKG Accession Number(s): [id number] cc: ~ ? Measurements Intervals? [place]? Rate: ? 114? P:? -19 MT: ? 124? QRS:? -18 QRSD: ? 90 ? T:? -20 QT: ? 298? QTc:? 411? Interpretive Statements SINUS TACHYCARDIA MINIMAL Q WAVES- HIGH LATERAL LEADS BORDERLINE T WAVE ABNORMALITY- ANTEROLAT/INF LEADS BASELINE ARTIFACT- I, III, AVL ABNORMAL ECG Electronically Signed On 02-09-2020 19:48:04 CDT by Chris Sal D.O. Patient hx anesthesia problems: none Family hx anesthesia problems: none Results Review: All pre-operative results and documents have been reviewed as part of the pre-operative evaluation. [facility] Past Medical History Medical History (Updated 08/10/22 @ 06:53 by Wayne Doyle MD) Asthma History of depression and anxiety Hypertension (normal spontaneous vaginal delivery) x 2 Status post hysteroscopy Surgical History Surgical History (Updated 06/20/22 @ 09:32 by Emily Paulino MD) S/P endometrial ablation 2019 S/P myomectomy 2019 S/P tubal ligation Family History Family History (Updated 06/20/22 @ 09:33 by Emily Paulino MD) Father Hypertension Family history of coronary artery disease Grandparent Diabetes mellitus Social History Social History Smoking status: Never smoker Alcohol intake: current Drinks per week: 1 Substance use: never Substance use type: does not use Lack of Transportation: No Lack of Food: Never True Current Housing: I Have Housing Concerned About Future Housing: No Difficulty Paying Gas/Electric Bills: No Difficulty Paying for Meds: No Currently Unemployed: No Education: Master's Degree or Higher Difficulty w/ Childcare or Family Care: No Living arrangements: with family Gender identity (if verbalized by the patient): Female Spiritual care concerns: No Anes - Eval Final PreProcedure Day of Procedure 08/10/22 06:51 Patient weight: obese Heart: regular rate and rhythm Lungs: clear to auscultation Airway: Mallampati scale class II Neurological: alert and oriented Last oral intake: >/= 8 hours ASA classification: II Emergent: no Anesthetic plan: proceed Anesthesia type and monitoring: general ETT and standard monitoring Results Review: All pre-operative results and documents have been reviewed as part of the pre-operative evaluation. Informed Consent: The patient's anesthetic plan and its attendant risks and benefits were discussed with the patient/family/POA. Questions were solicited and answers provided to the satisfaction of the patient/family/POA.
[2022-08-10] MEDS: ACETAMINOPHEN 500 MG TABLET 1000 MG PO (06:58)
[2022-08-10] MEDS: LACTATED RINGERS 1,000 ML 30 ML IV CONT ×3 (07:05→09:41)
[2022-08-10] MEDS: KETOROLAC 15 MG/ML VIAL (*BKC) IV PUSH (07:10)
--- NOTE | 2022-08-10 07:13 | WPDHPUPDATE1 ---
History and Physical Update Update Date/Time: 08/10/22 07:13 History and Physical has been reviewed, including an updated exam of the patient. There are NO changes in the patient's condition. Risks, benefits, and alternatives have been discussed and questions answered. Patient agrees to proceed with procedure.
--- NOTE | 2022-08-10 07:13 | PM.IMHP ---
H&P: HPI History of Present Illness Date/Time: 08/10/22 07:13 Chief Complaint: menorrhagia with anemia Narrative: The patient is a 46 year all with menorrhagia that has failed conservative treatment including medications and endometrial ablation. The patient has known multiple fibroids. The initial plan was to continue medications and proceed with hysterectomy in the summer however the patient had a severe bleeding episode and during her anemic and requiring any emergency room visit. The plan is to proceed now with total abdominal hysterectomy bilateral salpingo-oophorectomy. The patient has elected to take hormone replacement therapy after surgery. Risks of infection, bleeding injury to internal organs ( bowel, bladder, ureters), deep vein thrombosis, and anesthesia were reviewed with the patient. The patient voices understanding and agrees to proceed. Review of Systems Musculoskeletal: Musculoskeletal: Reports arthralgias PMFSH Past Medical History Medical History (Updated 08/10/22 @ 07:16 by Emily Paulino MD) Asthma History of depression and anxiety ADHD Hypertension (normal spontaneous vaginal delivery) x 2 Status post hysteroscopy Surgical History Surgical History (Updated 06/20/22 @ 09:32 by Emily Paulino MD) S/P endometrial ablation 2020 S/P myomectomy 2020 S/P tubal ligation Family History Family History (Updated 06/20/22 @ 09:33 by Emily Paulino MD) Father Hypertension Family history of coronary artery disease Grandparent Diabetes mellitus Social History Social History Smoking status: Never smoker Alcohol intake: current Drinks per week: 1 Substance use: never Substance use type: does not use Lack of Transportation: No Lack of Food: Never True Current Housing: I Have Housing Concerned About Future Housing: No Difficulty Paying Gas/Electric Bills: No Difficulty Paying for Meds: No Currently Unemployed: No Education: Master's Degree or Higher Difficulty w/ Childcare or Family Care: No Living arrangements: with family Gender identity (if verbalized by the patient): Female Spiritual care concerns: No Meds Home Medications and Allergies Home Medications Medication Instructions Recorded Confirmed Type lamotrigine 100 mg tablet 100 mg PO DAILY 02/09/20 08/10/22 History (Lamictal) venlafaxine 75 mg capsule,extended 75 mg PO BID 02/09/20 08/10/22 History release 24 hr dextroamphetamine-amphetamine ER 1 cap PO DAILY PRN ADHD 06/18/22 08/10/22 History 30 mg 24hr capsule,extend release multivitamin 1 tablet PO DAILY 07/30/22 08/10/22 History Allergies Allergy/AdvReac Type Severity Reaction Status Date / Time Penicillins Allergy Unknown Hives Verified 08/10/22 06:53 Exam Const: General: healthy appearing and alert Orientation/consciousness: patient oriented x3 Resp: Effort & Inspection: normal respiratory effort Auscultation: clear to auscultation bilaterally Cardio: Rate: regular rate Rhythm: regular rhythm GI: GI Palp: Yes Soft to palpation, No Tenderness to palpation present (GI) and No Palpable mass present : External Female Exam: normal external appearance Speculum Exam - Vagina: normal appearance of the vagina and normal vaginal discharge Speculum Exam - Cervix: normal appearance of the cervix Bimanual exam- vagina & uterus: enlarged ( and Scharff) Bimanual Exam- Adnexa, other: normal adnexae and No adnexal tenderness Neuro: General: patient oriented x3 Assessment and Plan Assessment and plan (1) Menorrhagia: Code(s): N92.0 - Excessive and frequent menstruation with regular cycle Status: Acute Assessment and Plan: plan is to proceed with total abdominal hysterectomy and bilateral salpingo-oophorectomy (2) Fibroids: Code(s): D21.9 - Benign neoplasm of connective and other soft tissue, unsp
[2022-08-10] MEDS: ceFAZolin 2 GM/D5W 50 ML 2 GM/50 ML BAG IVPB (07:27)
--- NOTE | 2022-08-10 09:07 | W.PM.PROC2 ---
Procedure Note - Detailed Date of Procedure 08/10/22 Pre-op Diagnosis Menorrhagia, Fibroids Post-op Diagnosis Same Procedure Performed total abdominal hysterectomy with bilateral salpingo-oophorectomy Surgeon Emily Paulino MD Anesthesia General Findings enlarged fibroid uterus; normal-appearing tubes and ovaries with evidence of prior tubal ligation Description of Procedure The patient is taken to the operating room and placed under anesthesia in the dorsal supine position. She was prepped and draped in usual sterile fashion. A Pfannenstiel skin incision was made with a scalpel and carried down to the underlying layer of fascia. The subcutaneous tissue is made hemostatic using Bovie cautery. There are extensive perforating vessels that bled. The fascia is nicked in the midline with a scalpel and extended laterally using Porras scissors. Bleeding vessels and the fascia are also cauterized. The fascia is grasped anteriorly with Selamner is and tented. The fascia was dissected off using sharp and blunt dissection. Again perforating vessels bladder. These were cauterized. The posterior fascia was grasped with Melony nurse and tented and the fascia dissected off using sharp and blunt dissection. Bleeding vessels were cauterized.The rectus muscles are in the midline. The peritoneum was tented and entered with Metzenbaum scissors. The incision was extended with blunt traction. The bowel was packed away using moist laparotomy sponges and the Cony retractor is placed. The uterus is grasped on the cornu with large peans. The round ligaments were doubly ligated with 0 Vicryl transected and the anterior leaf of the broad ligament incised meeting in the middle. The bladder was dissected off using sharp and blunt dissection. Perforating vessels are cauterized. The utero-ovarian ligament is isolated by creating a window in the posterior leaf of the broad ligament and doubly clamping the ligament. The pedicle is transected and suture ligated with 0 Vicryl. The identical procedure was performed on the right side. The uterine vessels are skeletonized, clamped, transected, and suture ligated with 0 Vicryl. The cardinal and uterosacral ligaments are serially clamped, transected, and suture ligated with 0 Vicryl. The uterosacral ligaments were tagged for future use. The scalpel was used to incise the midline of the vagina. The Allis clamps were used to grasp the vaginal cuff as the specimen was amputated with Rachel scissors. The vaginal cuff was then closed using 0 Vicryl in a running locked fashion. Each angle was tied to the ipsilateral uterosacral ligaments that were previously tagged. The bladder flap several bleeding vessels that were cauterized and an additional [id number] suture of 0 Vicryl was required for hemostasis. The pelvis is irrigated and the pedicles were noted to be hemostatic. The peritoneum posterior to the right uterosacral is oozing and a [id number] suture was placed. Good hemostasis at the peritoneum, bladder flap, and all pedicles is then noted. The sponges and instruments are removed. The fascia was closed using 0 Vicryl in a running fashion. Subcutaneous tissues were irrigated and a few vessels are cauterized resulting in hemostasis. The skin is closed using 4-0 Vicryl in a subcuticular fashion. Dermaflex was placed over the incision. Sponge, needle, and instrument counts are correct per the OR staff. Patient was awakened from anesthesia and taken to recovery in stable condition. Estimated Blood Loss 300 Drains Yes ( Barney catheter) Packing No Pathology Yes ( uterus, tubes, ovaries) Complications No immediate complications Condition Stable Disposition PACU
--- NOTE | 2022-08-10 09:14 | PM.DS ---
DS: Admitting Diagnosis Discharge Date 08/12/22 Admitting Diagnosis menorrhagia with anemia and fibroids DS: Discharge Diagnosis Discharge Diagnosis (1) Status post SHAQUILLE-BSO: Code(s): Z90.710 - Acquired absence of both cervix and uterus; Z90.722 - Acquired absence of ovaries, bilateral; Z90.79 - Acquired absence of other genital organ(s) Status: Acute DS: Summary Hospital Course Hospital Course: At the time of discharge, the patient is voiding, ambulating, and tolerating a regular diet. Pain is well controlled. Status at Discharge Functional status at discharge: independent ambulation Overall status at discharge: patient is progressing back to baseline Time Spent with Patient Time attestation: Total time spent providing and/or coordinating discharge services: DS: Data Data Completed and Pending Pending studies at discharge: Pending at discharge 08/10/22 09:01 Surgical [PTH] Routine Discharge Plan Discharge Attending physician on discharge: Emily Paulino Discharging Clinician: Daria Reynolds Patient Disposition: Home, Self-Care Activity: may shower, may drive after 2 weeks and pelvic rest Diet: regular Wound Care Instructions: incision open to air Discharge Instructions: Pelvic rest, no driving for 2 weeks, no heavy lifting. You may take Ibuprofen 600mg every 6 hours. GasX as needed for gas pain. Colace as needed for constipation. Patient Instructions: Laparoscopic Hysterectomy (DC) Stand Alone Forms: General Discharge Instructions Follow-up/Referrals: Emily Paulino MD [Physician] - 1 Week ( and 6 weeks) Discharge Medications: New hydrocodone-acetaminophen 5-325 mg tablet 1 tablet PO Q4H PRN (Reason: pain) Qty: 20 0RF estradiol [Climara] 0.05 mg/24 hr patch weekly 1 patch transdermal WEEKLY 360 Days Qty: 4 11RF Continued venlafaxine 75 mg capsule,extended release 24hr 75 mg PO BID lamotrigine [Lamictal] 100 mg tablet 100 mg PO DAILY multivitamin Tablet 1 tablet PO DAILY dextroamphetamine-amphetamine 30 mg capsule,extended release 24hr 1 cap PO DAILY PRN (Reason: ADHD) Date of admission: 08/10/22 10:26 Primary Care Provider: EulaSunita Admitting Provider: Emily Paulino Attending physician on admission: Daria Reynolds Condition: Stable
[2022-08-10] MEDS: SCOPOLAMINE 1.5 MG PATCH TRANSDERM (09:35)
[2022-08-10] MEDS: HALOPERIDOL LACTATE 5 MG/ML VIAL 1 MG IV PUSH (09:35)
[2022-08-10] MEDS: fentaNYL CITRATE INJ (*CRX) 100 MCG/2 ML VIAL 25 MCG IV PUSH ×8 (09:40→10:08)
[2022-08-10] MEDS: DEXTROSE 5%/LACTATED RINGERS 1,000 ML 125 ML IV CONT ×2 (11:07→19:27)
[2022-08-10] MEDS: ESTRADIOL 7 DAY 0.05 MG PATCH TRANSDERM (11:11)
[2022-08-10] MEDS: FENTANYL 600MCG/NS30MLPCA(*CRX 600 MCG/30 ML PCA.VIAL IV CONT (11:16)
--- NOTE | 2022-08-10 11:39 | OBPPTRN ---
1032 Patient transferred to post room #281 via bed. Oriented to unit, room, information board, admission packet and security measures. Patient verbalizes understanding.
[2022-08-10] MEDS: KETOROLAC 30 MG/ML VIAL (*BKC) IV PUSH ×2 (14:10→19:50)
[2022-08-10] MEDS: ONDANSETRON INJ 4 MG/2 ML VIAL IV PUSH (15:27)
[2022-08-11] VITALS (10 sets, daily range): BP systolic 103–138; BP diastolic 62–79; PULSE 61–75; RESP 16–18; TEMP 36.6–37.2; O2SAT 97–100
[2022-08-11] MEDS: KETOROLAC 30 MG/ML VIAL (*BKC) IV PUSH ×2 (01:40→07:21)
[2022-08-11 05:34] LABS: Basophils Percent Auto 0.3 % (0.2-1.2); Eosinophils Absolute Auto 0.1 K/mm3 (0-0.3); Eosinophils Percent Auto 0.7 % (0-4.4); Hematocrit 29.3 % (37.0-47.0); Hemoglobin 9.4 g/dL (12.0-15.0); Immature Granulocyte Absolute 0.04 K/mm3 (0.00-0.031); Immature Granulocyte Percent A 0.3 % (0-0.5); Lymphocytes Absolute Auto 2.23 K/mm3 (0.9-3.2); Lymphocytes Percent Auto 19.3 % (18.3-44.2); Mean Corpuscular HGB Conc 32.1 g/dl (32-36); Mean Corpuscular Hemoglobin 26.1 pg (26-34); Mean Corpuscular Volume 81.4 fl (80-100); Mean Platelet Volume 9.4 fl (7.4-10.4); Monocytes Absolute Auto 0.8 K/mm3 (0.1-0.6); Monocytes Percent Auto 7.1 % (2.6-8.5); Neutrophils Absolute Auto 8.4 K/mm3 (1.3-6.7); Neutrophils Percent Auto 72.3 % (45.5-73.1); Platelet Count Result 328 k/mm3 (150-375); Red Cell Distribution Width 14.4 % (11.5-14.5); White Blood Count 11.6 K/mm3 (4.5-10.0)
[2022-08-11] MEDS: SIMETHICONE 80 MG TAB.CHEW PO ×4 (06:55→20:47)
[2022-08-11] MEDS: ONDANSETRON INJ 4 MG/2 ML VIAL IV PUSH (06:56)
--- NOTE | 2022-08-11 07:26 | WPDANESPN ---
Anes - Prog Note Post-Op Date/Time: 08/11/22 07:26 Cardiovascular status: normal Respiratory status: normal Airway patency: baseline Mental status: baseline Post-Op hydration status: normal Vital Signs: Last Vital Signs Temp 37.0 C 08/11/22 04:06 Pulse 75 08/11/22 04:06 Resp 17 08/11/22 06:38 BP 126/75 08/11/22 04:06 Pulse Ox 99 08/11/22 06:38 O2 Del Method Nasal Cannula 08/11/22 04:06 O2 Flow Rate 1 08/11/22 04:06 Pain Score (VAS): 08/28 I/O: Intake & Output 08/10/22 08/10/22 08/11/22 15:59 23:59 07:59 Intake Total 560 1106 233.0 Output Total 1300 2575 Balance -740 1106 -2342.0 Laboratory Tests 08/11/22 04:29 08/11/22 04:29 WBC 11.6 H RBC 3.60 L Hgb 9.4 L Hct 29.3 L MCV 81.4 MCH 26.1 MCHC 32.1 RDW 14.4 Plt Count 328 MPV 9.4 Immature Gran % (Auto) 0.3 Neut % (Auto) 72.3 Lymph % (Auto) 19.3 Hodgeman % (Auto) 7.1 Eos % (Auto) 0.7 Baso % (Auto) 0.3 Lymph # (Auto) 2.23 Hodgeman # (Auto) 0.8 H Eos # (Auto) 0.1 Baso # (Auto) 0.0 Abs Immat Gran (auto) 0.04 H Absolute Neuts (auto) 8.4 H Absolute Nucleated RBC 0.0 Nucleated RBC % 0.0 Post-procedural complaints: none Patient Feedback: Patient satisfied with anesthetic care.
--- NOTE | 2022-08-11 07:56 | PM.GYNPNOP ---
AUTOMOTIVE SALESPERSON - A/P Postoperative Procedures: Procedures Operation Date: 08/10/22 07:30 Actual Procedure Side Surgeon p Total Abdominal Hysterectomy with Bilateral Salpingo-oophorectomy Bilateral Emily Paulino MD Postoperative day: 1 Postoperative status: doing well Postoperative plan: routine post-op care Time Spent With Patient Time: Total time spent is greater than 50% in coordination of care (as documented) at patient's floor/unit and/or counseling patient: Time with patient: less than 15 minutes AUTOMOTIVE SALESPERSON- PN:Subj Post-Op Subjective Date/time seen: 08/11/22 07:56 Subjective: patient reports feeling better and pain is well controlled Exam Narrative: inc c/d/i abdomen soft, nt, nd AUTOMOTIVE SALESPERSON - PN: Obj Data Vital Signs Vital Signs: Vital Signs - 24 hr 08/10/22 09:11 08/10/22 09:15 08/10/22 09:30 Temperature 97.0 F L Pulse Rate 67 66 51 L Respiratory Rate 14 17 18 Blood Pressure 141/86 H 150/92 H 140/80 Pulse Oximetry 96 98 98 Oxygen Delivery Simple Face Mask Room Air Room Air Oxygen Flow Rate 10 08/10/22 09:45 08/10/22 10:00 08/10/22 10:15 Temperature Pulse Rate 61 66 60 Respiratory Rate 13 15 16 Blood Pressure 148/85 H 151/75 H 146/93 H Pulse Oximetry 99 98 97 Oxygen Delivery Room Air Room Air Nasal Cannula Oxygen Flow Rate 2 08/10/22 10:24 08/10/22 11:16 08/10/22 10:40 Temperature 98.3 F Pulse Rate 60 56 L Respiratory Rate 12 16 16 Blood Pressure 139/84 134/71 Pulse Oximetry 98 99 99 Oxygen Delivery Nasal Cannula Oxygen Flow Rate 2 08/10/22 11:49 08/10/22 10:32 08/10/22 12:00 Temperature 98.2 F Pulse Rate 74 Respiratory Rate 16 16 Blood Pressure 136/79 Pulse Oximetry 99 99 99 Oxygen Delivery Nasal Cannula Oxygen Flow Rate 2 08/10/22 13:00 08/10/22 14:00 08/10/22 15:00 Temperature Pulse Rate Respiratory Rate 18 16 16 Blood Pressure Pulse Oximetry 100 100 96 Oxygen Delivery Oxygen Flow Rate 08/10/22 16:00 08/10/22 17:00 08/10/22 18:00 Temperature Pulse Rate Respiratory Rate 18 16 Blood Pressure Pulse Oximetry 98 91 97 Oxygen Delivery Oxygen Flow Rate 08/10/22 12:45 08/10/22 15:35 08/10/22 15:35 Temperature 98.4 F Pulse Rate 92 Respiratory Rate 16 Blood Pressure 148/97 H Pulse Oximetry 97 97 97 Oxygen Delivery Nasal Cannula Nasal Cannula Oxygen Flow Rate 2 2 08/10/22 19:10 08/10/22 19:10 08/11/22 00:24 Temperature 97.6 F Pulse Rate 52 L 52 L 61 Respiratory Rate 14 14 18 Blood Pressure 152/88 H Pulse Oximetry 99 99 100 Oxygen Delivery Nasal Cannula Nasal Cannula Oxygen Flow Rate 2 2 08/10/22 19:00 08/10/22 20:00 08/10/22 21:00 Temperature Pulse Rate Respiratory Rate 14 16 16 Blood Pressure Pulse Oximetry 99 99 98 Oxygen Delivery Oxygen Flow Rate 08/10/22 22:00 08/10/22 23:00 08/11/22 00:04 Temperature Pulse Rate Respiratory Rate 16 18 18 Blood Pressure Pulse Oximetry 97 100 100 Oxygen Delivery Oxygen Flow Rate 08/11/22 00:04 08/11/22 04:06 08/11/22 04:06 Temperature 97.8 F 98.6 F Pulse Rate 61 75 75 Respiratory Rate 18 16 16 Blood Pressure 138/75 126/75 Pulse Oximetry 100 97 97 Oxygen Delivery Nasal Cannula Oxygen Flow Rate 1 08/11/22 01:00 08/11/22 02:00 08/11/22 03:00 Temperature Pulse Rate Respiratory Rate 18 16 16 Blood Pressure Pulse Oximetry 100 98 97 Oxygen Delivery Oxygen Flow Rate 08/11/22 06:38 08/11/22 04:46 08/11/22 05:50 Temperature Pulse Rate Respiratory Rate 17 16 18 Blood Pressure Pulse Oximetry 99 98 98 Oxygen Delivery Oxygen Flow Rate Intake/Output Intake/Output: Intake & Output 08/08/22 08/09/22 08/10/22 08/11/22 23:59 23:59 23:59 23:59 Intake Total 1716 233.0 Output Total 1300 2575 Balance 416 -2342.0 Meds/Results Medications: Active Medications Generic Name Dose Route Start Last Admin Trade Name Freq PRN Reason Stop D
[2022-08-11] MEDS: HYDROcodone/acetaminophen (*CRX) 10-325 MG TABLET 1 TAB PO ×2 (09:16→13:51)
[2022-08-11] MEDS: IBUPROFEN 600 MG TABLET PO ×2 (12:58→20:48)
[2022-08-11] MEDS: HYDROcodone/acetaminophen (*CRX) 5-325 MG TABLET 1 TAB PO ×2 (16:56→20:47)
[2022-08-12] MEDS: HYDROcodone/acetaminophen (*CRX) 5-325 MG TABLET 1 TAB PO ×3 (01:36→07:20)
[2022-08-12] MEDS: IBUPROFEN 600 MG TABLET PO (04:36)
[2022-08-12] MEDS: SIMETHICONE 80 MG TAB.CHEW PO ×2 (04:37→07:20)
[2022-08-12 07:20] VITALS: BP 93/47; PULSE 67; RESP 16; TEMP 37; O2SAT 100
--- NOTE | 2022-08-12 07:32 | WPDPN ---
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; Z90.722 - Acquired absence of ovaries, bilateral; Z90.79 - Acquired absence of other genital organ(s) Status: Acute Plan DC home today Subjective Date/time seen: 08/12/22 07:20 Review of Systems Review of Systems: All systems reviewed & are unremarkable except as noted in HPI and below Exam Const: General: cooperative, no acute distress and awake Orientation/consciousness: patient oriented x3 Limitations: no limitations Resp: Effort & Inspection: normal respiratory effort and able to speak in complete sentences Auscultation: clear to auscultation bilaterally Cardio: Rate: regular rate Peripheral pulses: Peripheral pulses 2+ throughout GI: Inspection: normal to inspection Auscultation: normal bowel sounds : General: Yes bladder normal to palpation Skin: General skin exam: normal color Other: Incision approximated. C/D/I Neuro: General: patient oriented x3 Cognition (Neuro): normal cognition Speech: normal speech Extrem: General: normal to inspection Psych: Appearance: grossly normal Mental Status: mental status grossly normal Speech and movement: Normal speech and movement present Affect: normal affect Attitude: cooperative Thought process: Normal thought process present Objective Data Vital Signs Vital Signs: Vital Signs - 24 hr 08/11/22 19:00 08/11/22 19:00 Temperature 97.8 F Pulse Rate 69 Respiratory Rate 16 Blood Pressure 103/62 Oxygen Delivery Room Air Intake/Output Intake/Output: Intake & Output 08/09/22 08/10/22 08/11/22 08/12/22 23:59 23:59 23:59 23:59 Intake Total 1716 1733.0 Output Total 1300 3575 Balance 416 -1842.0 Meds/Results Medications: Active Medications Generic Name Dose Route Start Last Admin Trade Name Freq PRN Reason Stop Dose Admin Hydrocodone Bitart/Acetaminophen 1 tab 08/10/22 10:26 08/11/22 13:51 Hydrocodone/Acetaminophen (*Crx) 10-325 Mg Tablet PO 1 tab Q3H PRN Administration Pain Rated 6 or Greater Hydrocodone Bitart/Acetaminophen 1 tab 08/10/22 10:26 08/12/22 07:20 Hydrocodone/Acetaminophen (*Crx) 5-325 Mg Tablet PO 1 tab Q3H PRN Administration Pain Rated 5 or Less Bisacodyl 10 mg 08/10/22 10:26 Bisacodyl 10 Mg Suppository RECTAL ONCE PRN Constipation Estradiol 0.05 mg 08/10/22 10:08/10/22 11:11 Estradiol 7 Day 0.05 Mg Patch TRANSDERM 0.05 mg Q7D LISA Administration Ibuprofen 600 mg 08/10/22 10:26 08/12/22 04:36 Ibuprofen 600 Mg Tablet PO 600 mg Q6H PRN Administration Cramping Ketorolac Tromethamine 30 mg 08/10/22 10:26 08/11/22 07:21 Ketorolac 30 Mg/Ml Vial (*Bkc) IV PUSH 08/15/22 10:25 30 mg Q6H PRN Administration Pain Rated 4-6 Lamotrigine 100 mg 08/11/22 09:00 08/12/22 07:10 Lamotrigine 100 Mg Tablet PO Not Given DAILY LISA Ondansetron HCl 4 mg 08/10/22 10:26 08/11/22 06:56 Ondansetron Inj 4 Mg/2 Ml Vial IV PUSH 4 mg Q6H PRN Administration Nausea Simethicone 80 mg 08/10/22 10:26 08/12/22 07:20 Simethicone 80 Mg Tab.Chew PO 80 mg Q2H PRN Administration Gas Venlafaxine HCl 75 mg 08/10/22 17:00 08/12/22 07:11 Venlafaxine Hcl Xr 75 Mg Cap.Er.24h PO Not Given BID LISA
--- NOTE | 2022-08-12 08:38 | PC.NURSE ---
Zoe Jackson RN, has looked over and agrees with the charting for this patient that Adolfo Kirby RN, has competed for 08/11/22 and 08/12/22.
== END 2022-08-12 09:17 | disposition home or self-care (01) | DRG 743 ==
LOC: ANHOB2 10:29
PROVIDERS: Admitting Provider Obstetrics & Gynecology Gynecology; PCP Registered Nurse; Visit Provider Advanced Practice Midwife
PROC: 0UT94ZZ Resection of Uterus, Percutaneous Endoscopic Approach (ICD-10-PCS; principal; 2022-08-10 07:30)
DX: D25.9 Leiomyoma of uterus, unspecified (principal); N92.0 Excessive and frequent menstruation with regular cycle; J45.909 Unspecified asthma, uncomplicated
CPT/HCPCS: 36415; 85025; 88307; A9270; J0690; J1100; J1630; J1885; J2250; J2405; J2704; J2710; J3010; J7120; J7121

== ENCOUNTER → 2022-12-24 13:23 | Outpatient (CLI) | payer OTHER, SELFPAY ==
--- NOTE | ~2022-12-24 | MM_ITS ---
EXAMINATION: MM screening [facility] BI w randy HISTORY: Screening TECHNIQUE: Craniocaudal and mediolateral oblique 3-D tomosynthesis images were obtained and synthetic 2-D images were generated. CAD analysis was submitted and interpreted. COMPARISON: Comparison to multiple prior studies sequentially, with oldest reviewed study dated 11/14. BREAST PARENCHYMAL COMPOSITION: The breasts are heterogeneously dense, which may obscure small masses . FINDINGS: There is no evidence of suspicious mass, calcification, or architectural distortion to sugg est malignancy in either breast. There has been no suspicious interval change. IMPRESSION: 1. No mammographic evidence of malignancy. 2. Recommend routine screening mammography in one year. BI-RADS Category 1: Negative Reviewed, dictated and finalized at location A.
== END ==
PROVIDERS: PCP Obstetrics & Gynecology Gynecology; Visit Provider Obstetrics & Gynecology Gynecology
DX: Z12.31 Encounter for screening mammogram for malignant neoplasm of breast (principal)
CPT/HCPCS: 77063; 77067

== ENCOUNTER 2024-02-02 14:39 | Outpatient (CLI) | payer OTHER, SELFPAY ==
--- NOTE | ~2024-02-02 | DEXA_ITS ---
Bone Density Report Name: MAITE VAUGHAN Age: 48 Sex: Female Ethnicity: White Date of : 1975 Indication: postmenopausal; height loss; asthma or emphysema; hysterectomy; Referring Provider: Emily Paulino Study: Bone densitometry was performed. Exam Date: February 02, 2024 Accession number: [id number] Bone Density: Region BMD T-score Z-score Classification AP Spine(L1, L2, L3) 1.156 1.3 1.9 Normal Femoral Neck (Left) 1.052 1.8 2.5 Normal Total Hip (Left) 1.193 2.1 2.5 Normal Femoral Neck (Right) 1.044 1.8 2.4 Normal Total Hip (Right) 1.165 1.8 2.3 Normal Femoral Neck Mean 1.048 1.8 2.5 Normal Total Hip Mean 1.179 1.9 2.4 Normal World Health Organization criteria for BMD impression classify patients as: Normal (T-score at or above -1.0), Osteopenia (T-score between -1.0 and -2.5), or Osteoporosis (T-score at or below -2.5). 10-year Fracture Risk: FRAX not reported because: All T-scores for Spine Total, Hip Total, Femoral Neck at or above -1.0 Clinical Information Provided by Patient: Has the following medical conditions: Asthma or Emphysema, Hysterectomy Patient maximum height was 68 Menopause Age: 47 No regular weight bearing exercise Drinks caffeinated beverages Onset of menses at age 14 Number of children 3 Impression: The patient has normal bone mass. Discussion: BONE DENSITY IS ABOVE THE MINIMUM DESIRABLE LEVEL AT ALL SKELETAL SITES TESTED. This patient?s bone mineral density is above the minimum desirable level (T-score -1.0 or better) at all sites measured. The patient should follow a healthful lifestyle (good nutrition with adequate calcium and vitamin D, and appropriate weight-bearing exercise). Follow-Up: Consider repeating this study in 5 years or sooner if there is some new clinical indication. Reported by: Dr. Bijan Charles on 02/02/2024 3:08:00 PM. Reviewed, dictated and finalized at location A.
== END 2024-02-02 14:40 | disposition home or self-care (01) ==
LOC: CHSIMG 14:40
PROVIDERS: PCP Physician Assistant; Visit Provider Obstetrics & Gynecology Gynecology
DX: Z78.0 Asymptomatic menopausal state (principal)
CPT/HCPCS: 77080

== ENCOUNTER 2024-07-06 01:12 | Day surgery (SDC) | payer OTHER, SELFPAY ==
[2024-06-28 13:40] VITALS: BMI 28.9
--- NOTE | 2024-06-28 13:46 | PC.NURSE ---
Addendum entered by Philipp Garcia RN 06/28/24 16:12: Hold Edel for 10 days prior to surgery. Original Note: Report to the Outpatient Waiting Room, entrance under the green pavilion located off [facility], at time _1100_ on date _[id number]_. Planned Procedure Time: _1pm_.? Time changes happen often and if your time is changed the preop area will call you the afternoon before. - You and your visitor will be asked to self-screen and do not enter if you have any COVID symptoms. Please call surgeon if you need to reschedule. - A mask is optional within the hospital at this time. Patients may have clear liquids (water, carbonated beverages, clear teas, apple juice) until 3 hours prior to surgery with a maximum of 20 ounces. - No food from midnight until time of surgery and no smoking. This includes no chewing gum, candy or mints. Take only the following medications with a SIP of water on the morning of surgery: ____Lamictal and Venlafaxine DO NOT STOP ANY OF YOUR OTHER PRESCRIPTION MEDICATIONS PRIOR TO SURGERY EXCEPT THE FOLLOWING Medications to discontinue per physician ____Multivitamin Date to take last iwpl___[phone]___ Please no make-up, nail v[place] citizen, hairspray, perfume, deodorant, or body powder the day of surgery.? No jewelry (including any body piercings) or valuables the day of surgery, leave them at home.? Please take a shower or bath the night before, or the morning of, surgery with an antibacterial soap.? Wear comfortable, loose fitting clothing. - Jewelry must be removed prior to entering the operating room.? Rings and piercings that are not removed may be cut off. - The hospital will not accept responsibility for valuables.? - Please leave all valuables, including medications, at home the day of surgery. If you are going home after surgery, a licensed line haul driver must drive you home.? - NO public transportation without another adult if you receive anesthesia. - We recommend that an adult stay with you for 24 hours following discharge. - We also recommend that you do not drive, make important decision, drink alcoholic beverages, or take any drugs that were not prescribed by your health care provider for at least 24 hours after your discharge time. Follow any additional instructions given to you from your surgeon. Telephone instructions given to _Bernabemarcie__and asked if any additional questions and then verbalized understanding. Patient advised to call surgeon office or pre surgery nurse liaison [phone] if any additional questions.
[2024-07-06] VITALS (8 sets, daily range): BP systolic 104–139; BP diastolic 69–91; PULSE 76–93; RESP 10–16; TEMP 36.2–36.4; O2SAT 97–100
[2024-07-06] MEDS: LACTATED RINGERS 1,000 ML 30 ML IV CONT ×2 (11:40→14:59)
--- NOTE | 2024-07-06 12:47 | WPDANESEPPF ---
Anes - Initial Pre Proc Eval Procedure: Operation Date: 07/06/24 13:15 Proposed Procedures p Excision of Alma's Deformity Right Foot and Achilles Tendon Repair With Graft - Arnold Keita DPM Date/Time: 07/06/24 12:47 Surgeon: Arnold Keita DPM Pre Op Diagnosis: alma's deformity rt foot, achilles tendonitis Patient Data Age: 48 Gender: F Height: 1.73 m Weight: 85.1 kg Last Vital Signs Temp 36.2 C L 07/06/24 11:14 Pulse 76 07/06/24 11:14 Resp 16 07/06/24 11:14 BP 128/87 07/06/24 11:14 Pulse Ox 99 07/06/24 11:14 O2 Del Method Room Air 07/06/24 11:14 Allergies Allergy/AdvReac Type Severity Reaction Status Date / Time Penicillins Allergy Unknown Hives Verified 07/06/24 11:25 Home Medications ?Medication ?Instructions ?Recorded ?Confirmed ?Type lamotrigine 100 mg tablet 100 mg PO DAILY 02/09/20 07/06/24 History (Lamictal) venlafaxine 75 mg capsule,extended 75 mg PO BID 02/09/20 06/28/24 History release 24 hr dextroamphetamine-amphetamine ER 1 cap PO DAILY PRN ADHD 06/18/22 06/28/24 History 30 mg 24hr capsule,extend release multivitamin 1 tablet PO DAILY 07/30/22 07/06/24 History hydrocodone 5 mg-acetaminophen 325 1 tablet PO Q4H PRN pain #20 tabs 08/11/22 06/28/24 Rx mg tablet estradiol 0.05 mg/24 hr weekly 1 patch transdermal WEEKLY 12 08/12/22 06/28/24 Rx transdermal patch (Climara) months #4 ea dextroamphetamine-amphetamine ER 20 mg PO DAILY 06/28/24 06/28/24 History 20 mg 24hr capsule,extend release semaglutide (weight loss) 1.7 1.7 mg subcut WEEKLY 06/28/24 06/28/24 History mg/0.75 mL subcutaneous pen injector (Wegovy) venlafaxine 150 mg 150 mg PO DAILY 06/28/24 07/06/24 History capsule,extended release 24 hr Patient hx anesthesia problems: none Family hx anesthesia problems: none Results Review: All pre-operative results and documents have been reviewed as part of the pre-operative evaluation. [facility] Past Medical History Medical History (Updated 07/06/24 @ 12:53 by Arturo Kaiser DO) Asthma Status post hysteroscopy (normal spontaneous vaginal delivery) x 2 History of depression and anxiety ADHD Surgical History Surgical History (Updated 08/10/22 @ 09:15 by Emily Paulino MD) S/P myomectomy 2019 S/P endometrial ablation 2019 S/P tubal ligation Family History Family History (Updated 06/20/22 @ 09:33 by Emily Paulino MD) Father Hypertension Family history of coronary artery disease Grandparent Diabetes mellitus Social History Social History Smoking status: Never smoker Alcohol intake: current Drinks per week: 1 Substance use: never Substance use type: does not use Lack of Transportation: No Lack of Food: Never True Current Housing: I Have Housing Concerned About Future Housing: No Difficulty Paying Gas/Electric Bills: No Difficulty Paying for Meds: No Currently Unemployed: No Education: Master's Degree or Higher Difficulty w/ Childcare or Family Care: No Living arrangements: with family Gender identity (if verbalized by the patient): Female Spiritual care concerns: No Anes - Eval Final PreProcedure Day of Procedure 07/06/24 12:47 Patient weight: overweight Heart: regular rate and rhythm Lungs: clear to auscultation Airway: Mallampati scale class II Neurological: alert and oriented Last oral intake: >/= 8 hours ASA classification: II Emergent: no Anesthetic plan: proceed Anesthesia type and monitoring: general LMA and standard monitoring Results Review: All pre-operative results and documents have been reviewed as part of the pre-operative evaluation. Informed Consent: The patient's anesthetic plan and its attendant risks and benefits were discussed with the patient/family/POA. Questions were solicited and answers provided to the satisfaction of the patient/family/POA.
--- NOTE | 2024-07-06 13:08 | PM.IMHP ---
H&P: HPI History of Present Illness Date/Time: 07/06/24 13:08 Chief Complaint: Pt presents with painful haglunds deformity right foot that has failed conservative therapy. [facility] Past Medical History Medical History (Updated 07/06/24 @ 13:11 by Arnold Keita DPM) Asthma Status post hysteroscopy (normal spontaneous vaginal delivery) x 2 History of depression and anxiety ADHD Surgical History Surgical History (Updated 08/10/22 @ 09:15 by Emily Paulino MD) S/P myomectomy 2019 S/P endometrial ablation 2019 S/P tubal ligation Family History Family History (Updated 06/20/22 @ 09:33 by Emily Paulino MD) Father Hypertension Family history of coronary artery disease Grandparent Diabetes mellitus Social History Social History Smoking status: Never smoker Alcohol intake: current Drinks per week: 1 Substance use: never Substance use type: does not use Lack of Transportation: No Lack of Food: Never True Current Housing: I Have Housing Concerned About Future Housing: No Difficulty Paying Gas/Electric Bills: No Difficulty Paying for Meds: No Currently Unemployed: No Education: Master's Degree or Higher Difficulty w/ Childcare or Family Care: No Living arrangements: with family Gender identity (if verbalized by the patient): Female Spiritual care concerns: No Meds Home Medications and Allergies Home Medications ?Medication ?Instructions ?Recorded ?Confirmed ?Type lamotrigine 100 mg tablet 100 mg PO DAILY 02/09/20 07/06/24 History (Lamictal) venlafaxine 75 mg capsule,extended 75 mg PO BID 02/09/20 06/28/24 History release 24 hr dextroamphetamine-amphetamine ER 1 cap PO DAILY PRN ADHD 06/18/22 06/28/24 History 30 mg 24hr capsule,extend release multivitamin 1 tablet PO DAILY 07/30/22 07/06/24 History hydrocodone 5 mg-acetaminophen 325 1 tablet PO Q4H PRN pain #20 tabs 08/11/22 06/28/24 Rx mg tablet estradiol 0.05 mg/24 hr weekly 1 patch transdermal WEEKLY 12 08/12/22 06/28/24 Rx transdermal patch (Climara) months #4 ea dextroamphetamine-amphetamine ER 20 mg PO DAILY 12/11/24 12/11/24 History 20 mg 24hr capsule,extend release semaglutide (weight loss) 1.7 1.7 mg subcut WEEKLY 06/28/24 06/28/24 History mg/0.75 mL subcutaneous pen injector (Wegovy) venlafaxine 150 mg 150 mg PO DAILY 06/28/24 07/06/24 History capsule,extended release 24 hr Allergies Allergy/AdvReac Type Severity Reaction Status Date / Time Penicillins Allergy Unknown Hives Verified 07/06/24 11:25 Vital Signs Vital Signs - 24 hr 07/06/24 11:14 Temperature 36.2 C L Pulse Rate 76 Respiratory Rate 16 Blood Pressure 128/87 Pulse Oximetry 99 Oxygen Delivery Room Air Exam Const: General: cooperative, healthy appearing, comfortable and no acute distress Skin: General skin exam: normal color and no rashes or lesions noted Extrem: Left lower extremity: ankle Details: achilles tendon exam abnormal Details: tenderness to palpation and foot Details: normal capillary refill, warmth, no edema, tendon exam and other (Prominent retrocalcaneal exostosis) Assessment and Plan Assessment and plan (1) Alma's deformity of right heel: Code(s): M92.61 - Juvenile osteochondrosis of tarsus, right ankle Status: Acute Plan Excision Haglunds deformity and Achilles tendon repair right
--- NOTE | 2024-07-06 13:12 | WPDHPUPDATE1 ---
History and Physical Update Update Date/Time: 07/06/24 13:12 History and Physical has been reviewed, including an updated exam of the patient. There are NO changes in the patient's condition. Risks, benefits, and alternatives have been discussed and questions answered. Patient agrees to proceed with procedure.
[2024-07-06] MEDS: ceFAZolin 2 GM/D5W 50 ML 2 GM/50 ML BAG IVPB (13:31)
[2024-07-06] MEDS: BUPivacaine HCL 0.5% 10 ML AMP INFILTRATE (14:06)
[2024-07-06] MEDS: BUPivacaine HCL 0.5% PF 30 ML VIAL INFILTRATE (14:19)
[2024-07-06] MEDS: NEOMYCIN/POLYMYXIN/BACITRACIN OINTMENT 15 GM TUBE 1 APPLIC TOPICAL (14:39)
--- NOTE | 2024-07-06 15:12 | W.PM.PROC2 ---
Procedure Note - Detailed Date of Procedure 07/06/24 Pre-op Diagnosis seema's deformity rt foot, achilles tendonitis Post-op Diagnosis Same Procedure Performed Excision of haglunds deformity with achilles tendon repair right Surgeon Arnold Keita, CECILLE Community Engagement Representative None Anesthesia General Description of Procedure Under monitored sedation patient was brought into the operating room, placed on the operating table. Following administration of general anesthesia patient was placed in the lateral position. The foot was then scrubbed, prepped and draped in the usual aseptic manner. Esmark bandage used to exsanguinate the patient?s right leg and the ankle tourniquet was inflated to 250mm. Attention was then directed to the lateral aspect of the calcaneus at the insertion of the Achilles tendon where a linear incision was made. It was deepened down to the level of the insertion of the tendon using sharp and blunt dissection with care being taken to identify and retract all vital and neuro and vascular structures. The retrocalcaneal exostosis was removed using the bone saw and the osteotome and mallet. All rough edges were smoothed with bur and the Achilles tendon debrided and then was the reattached to the bone using the Reel-x anchor. A Graftjacket was placed on the tendon.Wound was flushed with copious amounts of sterile normal saline. The deep tissue repaired using 3-0 vicryl and the skin was repaired using 5-0 vicryl. The wound was covered with dry, sterile compressive dressing consisting of steristrips, antibiotic ointment, Adaptic, 4 x 4?s, and Kerlix. A below the knee fiberglass cast was applied. The tourniquet was deflated, prompt capillary refill response noted to all digits of the left foot. Patient tolerated procedure and anesthesia well. He was transferred to the recovery room with vital signs stable and neurovascular status intact to all digits of the left foot. Following a period of post-operative monitoring the patient will be discharged home with written and oral post-operative instructions. Drains No Packing No Pathology None sent Complications No immediate complications Condition Stable Disposition PACU
[2024-07-06] MEDS: oxyCODONE HCL (*CRX) 5 MG TAB IR PO (16:03)
== END 2024-07-06 16:40 | disposition home or self-care (01) ==
PROVIDERS: PCP Physician Assistant; Visit Provider Podiatrist Foot & Ankle Surgery
PROC: (CPT 27650; principal; 2024-07-06 13:15)
DX: M92.61 Juvenile osteochondrosis of tarsus, right ankle (principal); M76.61 Achilles tendinitis, right leg; J45.909 Unspecified asthma, uncomplicated; F41.8 Other specified anxiety disorders; Z79.891 Long term (current) use of opiate analgesic; Z79.85 Long-term (current) use of injectable non-insulin antidiabetic drugs; Z98.890 Other specified postprocedural states; Z98.51 Tubal ligation status; Z98.891 History of uterine scar from previous surgery; Z82.49 Family history of ischemic heart disease and other diseases of the circulatory system
CPT/HCPCS: 27650; A9270; J0690; J1100; J1171; J1596; J2003; J2250; J2405; J2704; J3010; J7120

== ENCOUNTER 2024-07-24 11:42 | Outpatient (CLI) | payer OTHER, SELFPAY ==
--- NOTE | ~2024-07-24 | XR_ITS ---
EXAMINATION: XR hip BI wo pelvis DATE: 07/24/2024 12:26 INDICATION: Bilateral hip pain. TECHNIQUE: 2 views of the right hip and 2 views of the left hip were obtained. COMPARISON: None. FINDINGS: Alignment is normal. No fracture. There is mild osteoarthritis of the hips characterized by tiny osteophytes. No hip joint space narrowing. IMPRESSION: 1. Mild osteoarthritis of the hips. Reviewed, dictated and finalized at location A. ENT SUPPLIER
--- NOTE | ~2024-07-24 | XR_ITS ---
EXAMINATION: XR lumbar spine 2-3V DATE: 07/24/2024 12:26 INDICATION: Low back pain. TECHNIQUE: 3 views of lumbar spine were obtained. COMPARISON: None. FINDINGS: There is 3 degrees dextrocurvature of lumbar spine. Vertebral body heights are normal. Ther e is mildly decreased disc height at L1-L2, L3-L4, and L5-S1. There is multilevel facet joint osteoar thritis, severe in lower lumbar spine. IMPRESSION: 1. Mild lumbar spondylosis. Reviewed, dictated and finalized at location A. [employer]ION [employer] INTELLIGENCE IMPRESSION: 1. Mild lumbar spondylosis.
--- NOTE | ~2024-07-24 | MM_ITS ---
EXAMINATION: MM screening siena BI w randy HISTORY: Screening TECHNIQUE: Craniocaudal and mediolateral oblique 3-D tomosynthesis images were obtained and synthetic 2-D images were generated. CAD analysis was submitted and interpreted. COMPARISON: Comparison to multiple prior studies sequentially, with oldest reviewed study dated 10/09. BREAST PARENCHYMAL COMPOSITION: Not dense: There are scattered areas of fibroglandular density. FINDINGS: There is no evidence of suspicious mass, calcification, or architectural distortion to sugg est malignancy in either breast. There has been no suspicious interval change. IMPRESSION: 1. No mammographic evidence of malignancy. 2. Recommend routine screening mammography in one year. BI-RADS Category 1: Negative Reviewed, dictated and finalized at location B. DEVELOPER
== END 2024-07-24 11:43 | disposition home or self-care (01) ==
LOC: CHSIMG 11:47
PROVIDERS: PCP Family Medicine; Visit Provider Obstetrics & Gynecology Gynecology
DX: M25.552 Pain in left hip (principal); Z12.31 Encounter for screening mammogram for malignant neoplasm of breast; M25.551 Pain in right hip; M54.50 Low back pain, unspecified; M43.06 Spondylolysis, lumbar region; M16.0 Bilateral primary osteoarthritis of hip
CPT/HCPCS: 72100; 73521; 77063; 77067

== ENCOUNTER 2024-09-19 17:04 | Outpatient (RCR) | payer OTHER, SELFPAY ==
--- NOTE | 2024-09-20 12:30 | OPREHPOC ---
Outpatient Therapy Plan of Care This is a Multidisciplinary Plan of Care that may contain components documented by all disciplines (PT, OT, and ST.) PT Problem 1 PT Problem #1 Knowledge Deficit PT Goal 1 Goal / Goal Update 1. independent and compliant with HEP Target Visit 4 PT Problem 2 PT Problem #2 Pain PT Goal 1 Goal / Goal Update 1. 1/10 or less pain at worst in the R ankle Target Visit 8 PT Problem 3 PT Problem #3 Impaired Range of Motion PT Goal 1 Goal / Goal Update 1. 15 degrees active L ankle DF Target Visit 8 PT Problem 4 PT Problem #4 Impaired Strength PT Goal 1 Goal / Goal Update 1. 5/5 R ankle strength Target Visit 8 PT Problem 5 PT Problem #5 Impaired Functional Mobility PT Goal 1 Goal / Goal Update 1. LEFS to display less than 20% functional deficits 2. patient to be ready to return to pickleball and rec activities 3. patient will ambulate up and down steps with reciprocal mechanics Target Visit 8
--- NOTE | 2024-09-20 12:30 | PTOPEVAL1 ---
Assessment and note entered by JT File, PT Evaluation Information Assessment Status Evaluation Diagnosis s/p haglunds removal ICD-10 Condition Codes (PT) Pain in right ankle and joints of right foot M25. 571 Onset 07/06/24 Subjective Information patient had a surgery on the R ankle on 07/06/24. she reports she had a large bone spur and repaired the achilles tendon. since surgery, she was in a cast for 3 weeks, then was in another cast for 2 weeks, and then a boot for 3 weeks or more. she reports she just saw the surgeon, and reports she was told it is healed. she is still numb on the back of the heel, and reports she has pain all the time. she reports she has the most pain with walking. Reported Pain Level Pain Score 2: Self Report Assessment PT Clinical Summary mrs. laguerre is a 48 yo woman who presents to skilled PT services for evaluation and treatment s /p R ankle haglunds removal. she presents today with decreased R ankle DF rom, decreased R ankle strength, and deficits in ambulation and functional activity performance. she would benefit from continued skilled PT to improve her objective/functional deficits and return to her prior level functional activity performance/ quality of life. Plan of Care Interventions Electrical Stimulation,Gait Training,Hot Pack/Cold Pack,Manual Therapy,Neuro Re-education,Patient/ Caregiver Education,Therapeutic Activities, Therapeutic Exercise PT Services Indicated Yes Treatment Frequency and 2x weekly for 8 visits Duration These treatments will address the objective and functional deficits as defined above. The patient will be advanced safely and appropriately in order for the patient to progress towards his/her prior level of function. Additional exercises will be introduced and as well as a comprehensive home exercise program upon discharge, if needed, ?to ensure carryover of functional gains achieved in the clinic. This treatment plan has been reviewed and agreement upon by the patient.
== END 2024-12-18 23:59 | disposition home or self-care (01) ==
LOC: CHSPT 17:04
PROVIDERS: Visit Provider Podiatrist Foot & Ankle Surgery
DX: M79.671 Pain in right foot (principal); M21.6X1 Other acquired deformities of right foot; M25.571 Pain in right ankle and joints of right foot
CPT/HCPCS: 97110; 97161

== ENCOUNTER 2025-01-05 10:10 | Outpatient (CLI) | payer OTHER, SELFPAY ==
[2025-01-05 10:33] LABS: Basophils Absolute Auto 0.06 K/mm3 (0.00-0.10); Basophils Percent Auto 0.7 % (0.0-1.0); Eosinophils Absolute Auto 0.57 K/mm3 (0.02-0.50); Eosinophils Percent Auto 6.9 % (1.0-6.0); Hematocrit 41.7 % (35.0-49.0); Immature Granulocyte Absolute 0.02 K/mm3 (0.00-0.00); Immature Granulocyte Percent A 0.2 % (0.0-0.0); Lymphocytes Absolute Auto 2.04 K/mm3 (1.10-4.50); Lymphocytes Percent Auto 24.8 % (18.0-42.0); Mean Corpuscular HGB Conc 33.6 g/dL (32-36); Mean Corpuscular Hemoglobin 29.8 pg (27.0-31.0); Mean Corpuscular Volume 88.7 fL (78.0-102.0); Mean Platelet Volume 8.8 fl (9.2-11.8); Monocytes Absolute Auto 0.41 K/mm3 (0.10-0.90); Neutrophils Absolute Auto 5.13 K/mm3 (1.70-7.20); Neutrophils Percent Auto 62.4 % (50.0-70.0); Platelet Count Result 307 K/mm3 (150-420); Red Cell Distribution Width 12.4 % (11.6-14.4); White Blood Count 8.2 K/mm3 (4.8-10.8)
[2025-01-05 10:41] LABS: Hemoglobin A1C 5.4 % (<5.7)
[2025-01-05 10:51] LABS: Alanine Aminotransferase 48 U/L (6-35); Albumin Level 4.7 g/dL (3.5-5.1); Alkaline Phosphatase 86 U/L (38-126); Anion Gap 5 mmol/L (4-12); Aspartate Amino Transferase 43 U/L (14-36); Bilirubin,Total 0.5 mg/dL (0.2-1.3); Blood Urea Nitrogen 21 mg/dL (7-17); Calcium 9.3 mg/dL (8.4-10.2); Carbon Dioxide 30 mmol/L (22-30); Chloride 105 mmol/L (98-107); Cholesterol 214 mg/dL (0-200); Estimated Glomerular Filt Rate > 60; Glucose 92 mg/dL (65-110); HDL Direct 53 mg/dL; LDL Cholesterol Calculated 123 mg/dL (<130); Osmolality Calculated 293 mOsm/kg (285-295); Potassium 4.5 mmol/L (3.4-5.0); Sodium 140 mmol/L (137-145); Total Protein 7.3 g/dL (6.3-8.2); Triglycerides 190 mg/dL (<150)
[2025-01-05 11:08] LABS: Vitamin D 25 Hydroxy 34.4 ng/mL
== END 2025-01-05 10:11 | disposition home or self-care (01) ==
LOC: CHSLAB 10:15
PROVIDERS: PCP Family Medicine; Visit Provider Physician Assistant
DX: Z13.220 Encounter for screening for lipoid disorders (principal); E66.811 Obesity, class 1; Z13.21 Encounter for screening for nutritional disorder
CPT/HCPCS: 36415; 80053; 80061; 82306; 83036; 85025

== ENCOUNTER 2025-01-29 07:54 | Day surgery (SDC) | payer OTHER, SELFPAY ==
[2024-11-28 12:21] VITALS: BMI 28.9
[2025-01-24 12:19] VITALS: BMI 29.6
--- OUTSIDE RECORDS SUMMARY | 2025-01-29 08:28 | XMS_ITS | Clinical Summary ---
Author Organization [facility] Address [address] [place] [address] Phone Care Team Providers Care Dry Food Products Mixer Name Role Phone Erik Sorto MD Primary Care Provide r Allergies No known active allergies Medications ALPRAZolam (XANAX) 1 MG Tablet Take 1 mg by mouth 2 times daily as needed. Active venlafaxine (EFFEXOR XR) 75 MG CAPSULE SR 24 HR Take 225 mg by mouth. Active lamoTRIgine (LAMICTAL) 25 MG Tablet Take 25 mg by mouth daily. Active Dexmethylphenida te HCl (FOCALIN XR) 20 MG CAPSULE SR 24 HR Take 20 mg by mouth daily. Active busPIRone (BUSPAR) 15 MG Tablet Take 15 mg by mouth 3 times daily. Active Active Problems Problem Noted Date Diagnosed Date Panic disorder 07/09/2017 Major depressive disorder, r ecurrent episode, moderate with mixed features 07/09/2017 Family History Relation Name Status Comments Father Alive Mother Alive Social History Tobacco Use Types Packs/Day Years Used Date Smoking Tobacco: Never Smokeless Tobacco: Never Alcohol Use Standard Drinks/Week Comments No 0 (1 standard drink = 0.6 oz pur e alcohol) Sexually Active Control Partners Comments Not Currently Comments Unknown Sex and Gender Information Value Date Recorded Sex Assigned at Not on file Legal Sex Female 3:39 PM MANAGER LOGISTIC Gender Identity Not on file Sexual Orientation Not on file Plan of Treatment Health Maintenance Due Date Last Done Comments Hepatitis C Virus (HCV) Screening 1975 TdaP Immunization 1975 Hepatitis B Immunization (1 of 3 - 19+ 3-dose series) 1993 Pap Smear 12/14/1995 Cervical Cancer Screening (CCS) 2004 HPV/Cotest 2004 Cologuard 12/14/2019 Colonoscopy 12/14/2019 Colorectal Cancer Screening 12/14/2019 Immunochemical Fecal Occult Blood 12/14/2019 SARS-COV-2 Immunization (1 - 2023- season) 2024 Pneumococcal Immunization (5 0+ years) (1 of 1 - PCV) 2024 Zoster Immunization (1 of 2) 2024 Influenza Immunization (#1) 2025 Respiratory Syncytial Virus (RSV) Immunization (Adult) (1 - 1-dose 75+ series) 2049 Human Papillomavirus (HPV) Immunization Aged Out No longer eligible b ased on patient's age to complete this topic Meningococcal Immunization (ACWY) Aged Out No longer eligible based on patient's age to complete this topic Rotavirus Immunization Aged Out No lo nger eligible based on patient's age to complete this topic Care Teams Dry Food Products Mixer Relationship Specialty Start Date End Date Erik Sorto MD [address] [facility] [address] [address] PCP - General Family Medicine 07/06/17
--- OUTSIDE RECORDS SUMMARY | 2025-01-29 08:28 | XMS_ITS | Patient Health Record ---
Author Organization [facility] Address [address] [facility] [address] [place] [address] Care Team Providers Care Vp Outcomes Name Role Phone Sushil Conteh MD Primary Care Provider Deepak Angulo Unavailable [phone] Carlee Silva Unavailable [phone] Allergies No Known Allergies Results Component Value Reference Range Notes UDT Reviewed date:04/13/2024 12:20:27 PM Interpretation: Performing Lab: Notes/Report: THC POS 0 - 50 ng/ml Cocaine N 0 - 300 ng/ml Amphetamine N 0 - 1000 ng/ml Buprenorphine (BUP) N 0 - 10 ng/ml Secobarbital (Bar) N 0 - 300 ng/ml Oxazepam (BZO) N 0 - 300 ng/ml 9-kuittjexth-8,0-kgbxvtgd-0,3-diphenylpyrrolidine (DONTE P) N 0 - 300 ng/ml Methamphetamine (MET) N 0 - 1000 ng/ml Methylenedioxymethamphetamine (MDMA) N 0 - 500 ng/ml Morphine (MOP 300/YIN1551) N 0 - 300 ng/ml Methadone (MTD) N 0 - 300 ng/ml Phencyclidine (PCP) N 0 - 25 ng/ml Nortriptyline (TCA) N 0 - 1000 ng/ml Oxycodone N 0 - 300 ng/ml x N 0 - 300 ng/ml UDT Reviewed date:11/01/2024 11:12:36 AM Interpretation: Performing Lab: Notes/Report: THC POS 0 - 50 ng/ml Cocaine NEG 0 - 300 ng/ml Amphetamine POS 0 - 1000 ng/ml Buprenorphine (BUP) NEG 0 - 10 ng/ml Secobarbital (Bar) NEG 0 - 300 ng/ml Oxazepam (BZO) NEG 0 - 300 ng/ml 1-hovvtqsxbw-0,8-ehllfssv-1,3-diphenylpyrrolidine (DONTE P) NEG 0 - 300 ng/ml Methamphetamine (MET) NEG 0 - 1000 ng/ml Methylenedioxymethamphetamine (MDMA) NEG 0 - 500 ng/ml Morphine (MOP 300/ADF5995) NEG 0 - 300 ng/ml Methadone (MTD) NEG 0 - 300 ng/ml Phencyclidine (PCP) NEG 0 - 25 ng/ml Nortriptyline (TCA) NEG 0 - 1000 ng/ml Oxycodone NEG 0 - 300 ng/ml x NEG 0 - 300 ng/ml Reason For Referral No Information Medications Medication SIG (Take, Route, Frequency, Duration) Notes Start Date End Date Status Wegovy 1.7 MG/0.75ML Subcutaneous; Durat ion: 28 Days Active Adderall XR 20 MG 1 capsule in the mor carmen Oral Once a day; Duration: 30 days 01/03/2024 Active Amphetamine-Dextroamphet ER 20 MG 1 capsule every morning Orally Once a day; Duration: 30 days 01/12/2025 Active Estradiol 0.05 MG/24HR Transdermal 06/08/2023 Active Venlafaxine HCl ER 150 MG 1 capsule Oral Once a day; Duration: 90 days Active Amphetamine-Dextroamphet ER 20 MG 1 capsule every morning Orally Once a day; Duration: 30 days 10/09/2024 Not-Taking Amphetamine-Dextroamphet ER 20 MG 1 capsule every morning Orally Once a day; Duration: 30 days 09/08/2024 Not-Taking lamoTRIgine ER 250 MG TAKE ONE TABLET BY MOUTH DAILY; Duration: 30 Active Amphetamine-Dextroamphet ER 20 MG 1 capsule every morning Orally Once a day; Duration: 30 days 06/22/2024 Not-Taking Immunizations Vaccine Route Administration Date Status Comme nts Pfizer Biontech Covid-19 Vac cine 2nd dose Unknown 03/15/2021 Administered Pfizer Biontech Covid-19 Vac cine 2nd dose Unknown 04/05/2021 Administered Social History Tobacco Use: Social History Observation Description Date Details (start date - stop date) Never Smoker NA - NA Sex Assigned At : Social History Observation Description Sex Assigned At Female Tobacco Control (Standard) Question Answer Notes Tobacco use: Nonsmoker AUDIT-C (Standard) Question Answer Notes Interpretation Negative Did you have a drink contain ing alcohol in the past year? Yes How often did you have six o r more drinks on one occasion in the past year? Declined to specify (0 point) How many drinks did you have on a typical day when you were drinking in the past year? Declined to specify (0 point) How often did you have a dri nk containing alcohol in the past year? Monthly or less (1 point) Problems Problem Type SNOMED Code ICD Code Onset Dates Problem Status W/U Status Risk Notes Problem Mild recurrent major depression (11679556) Major depressive disorder, recurrent, mild (F33.0) Active confirmed Problem Generalized anxiety disorder (90719414) Generalized anxiety disorder (F41.1) Active confirmed Problem Attention deficit hyperactivity disorder, combined type (28823967) Attention-deficit hyperactivity disorder, combined type (F90.2) 11/30/19 24 Active confirmed Vital Signs Heart Rate 94 /min 04/13/2024 Height-cm 172.72 cm 10/31/2024 Blood pressure diastolic 83 mm Hg 04/13/2024 Weight-kg 88.27 kg 04/13/2024 Height 68.00 in 10/31/2024 Blood pressure systolic 129 mm Hg 04/13/2024 Weight 194.6 lbs 04/13/2024 BMI 29.59 kg/m2 04/13/2024 Encounters Encounter Location Date Provider Diagnosis [facility] [address] [facility] [address] [address] 02/14/2024 Deepak Bardales [facility] [address] [address] 04/13/2024 Deepak Bardales Attention-deficit hyperactivity disorder, combined type F90.2 ; Generalized anxiety disorder F41.1 and Major depressive disorder, recurrent, mild F33.0 [facility] [address] [facility] [address] [address] 10/31/2024 Deepak Bardales Attention-deficit hyperactivity disorder, combined type F90.2 ; Generalized anxiety disorder F41.1 and Major depressive disorder, recurrent, mild F33.0 [facility] [address] [facility] [address] [place] [address] 02/08/2024 Deepak Bardales Attention-deficit hyperactivity disorder, combined type F90.2 [facility] [address] [place] [address] 03/14/2024 Deepak Bardales [facility] [address] [place] [address] 05/12/2024 Deepak Bardales Attention-deficit hyperactivity disorder, combined type F90.2 [facility] [address] [place] [address] 05/19/2024 Deepak Bardales Attention-deficit hyperactivity disorder, combined type F90.2 [facility] [address] [place] [address] 06/22/2024 Deepak Baradles Attention-deficit hyperactivity disorder, combined type F90.2 [facility] [address] [place] [address] 07/25/2024 Deepak Bardales Attention-deficit hyperactivity disorder, combined type F90.2 [facility] [address] [place] [address] 09/08/2024 Deepak Bardales Attention-deficit hyperactivity disorder, combined type F90.2 [facility] [address] [place] [address] 10/09/2024 Carlee Silva Attention-deficit hyperactivity disorder, combined type F90.2 and Major depressive disorder, recurrent, mild F33.0 [facility] [address] [place] [address] 12/12/2024 Deepak Bardales Attention-deficit hyperactivity disorder, combined type F90.2 [facility] [address] [place] [address] 01/12/2025 Deepak Bardales Attention-deficit hyperactivity disorder, combined type F90.2 [facility] [address] [place] [address] 01/24/2025 Deepak Bardales Assessments Encounter Date Diagnosis (ICD Code) Assessment Notes Treatment Notes Treatment Clinical Notes Section Notes 02/08/2024 Attention-defic it hyperactivity disorder, combined type (ICD-10 - F90.2) 05/12/2024 Attention-defic it hyperactivity disorder, combined type (ICD-10 - F90.2) 06/22/2024 Attention-defic it hyperactivity disorder, combined type (ICD-10 - F90.2) 07/25/2024 Attention-defic it hyperactivity disorder, combined type (ICD-10 - F90.2) 09/08/2024 Attention-defic it hyperactivity disorder, combined type (ICD-10 - F90.2) 10/09/2024 Attention-defic it hyperactivity disorder, combined type (ICD-10 - F90.2) 10/31/2024 Attention-defic it hyperactivity disorder, combined type (ICD-10 - F90.2) 12/12/2024 Attention-defic it hyperactivity disorder, combined type (ICD-10 - F90.2) 01/12/2025 Attention-defic it hyperactivity disorder, combined type (ICD-10 - F90.2) 05/19/2024 Attention-defic it hyperactivity disorder, combined type (ICD-10 - F90.2) 04/13/2024 Generalized anxiety disorder (ICD-10 - F41.1) stable 1. Major Depressive Disorder: - Patient reports continued stability on Venlafaxine ER 150 mg daily and Lamotrigine ER 250 mg daily. Plan: - Continue Venlafaxine ER 150 mg daily and Lamotrigine ER 250 mg daily. - Refill prescriptions for 90 days. - Monitor for any changes in mood or side effects. 2. Attention Deficit Hyperactivity Disorder (ADHD): - Patient reports benefit from Adderall XR 20 mg daily, especially on workdays, but has not taken it for about a month. Plan: - Reinstate Adderall XR 20 mg daily as needed for ADHD symptoms, particularly on workdays. - Educate patient on appropriate use and potential side effects. 3. Hormone Replacement Therapy (HRT): - Patient is on an estradiol patch, which may interact with Lamotrigine. Plan: - Continue monitoring for any changes in mood or side effects related to the interaction between estradiol and Lamotrigine. 4. Follow-up: - Schedule a follow-up appointment in three months to assess the patient's progress and medication management. 04/13/2024 Attention-defic it hyperactivity disorder, combined type (ICD-10 - F90.2) 1. Major Depressive Disorder: - Patient reports continued stability on Venlafaxine ER 150 mg daily and Lamotrigine ER 250 mg daily. Plan: - Continue Venlafaxine ER 150 mg daily and Lamotrigine ER 250 mg daily. - Refill prescriptions for 90 days. - Monitor for any changes in mood or side effects. 2. Attention Deficit Hyperactivity Disorder (ADHD): - Patient reports benefit from Adderall XR 20 mg daily, especially on workdays, but has not taken it for about a month. Plan: - Reinstate Adderall XR 20 mg daily as needed for ADHD symptoms, particularly on workdays. - Educate patient on appropriate use and potential side effects. 3. Hormone Replacement Therapy (HRT): - Patient is on an estradiol patch, which may interact with Lamotrigine. Plan: - Continue monitoring for any changes in mood or side effects related to the interaction between estradiol and Lamotrigine. 4. Follow-up: - Schedule a follow-up appointment in three months to assess the patient's progress and medication management. 04/13/2024 Major depressive disorder, recurrent, mild (ICD-10 - F33.0) Estrogen derivatives (eg, Estradiol Transdermal Patch Weekly 0.05 MG/24HR) may decrease the serum concentration and pharmacologic effects of lamotrigine. 1. Major Depressive Disorder: - Patient reports continued stability on Venlafaxine ER 150 mg daily and Lamotrigine ER 250 mg daily. Plan: - Continue Venlafaxine ER 150 mg daily and Lamotrigine ER 250 mg daily. - Refill prescriptions for 90 days. - Monitor for any changes in mood or side effects. 2. Attention Deficit Hyperactivity Disorder (ADHD): - Patient reports benefit from Adderall XR 20 mg daily, especially on workdays, but has not taken it for about a month. Plan: - Reinstate Adderall XR 20 mg daily as needed for ADHD symptoms, particularly on workdays. - Educate patient on appropriate use and potential side effects. 3. Hormone Replacement Therapy (HRT): - Patient is on an estradiol patch, which may interact with Lamotrigine. Plan: - Continue monitoring for any changes in mood or side effects related to the interaction between estradiol and Lamotrigine. 4. Follow-up: - Schedule a follow-up appointment in three months to assess the patient's progress and medication management. 10/09/2024 Major depressive disorder, recurrent, mild (ICD-10 - F33.0) 10/31/2024 Generalized anxiety disorder (ICD-10 - F41.1) stable 10/31/2024 Major depressive disorder, recurrent, mild (ICD-10 - F33.0) Estrogen derivatives (eg, Estradiol Transdermal Patch Weekly 0.05 MG/24HR) may decrease the serum concentration and pharmacologic effects of lamotrigine. 04/13/2024 Other Learning About Depression Screening material was printed 1. Major Depressive Disorder: - Patient reports continued stability on Venlafaxine ER 150 mg daily and Lamotrigine ER 250 mg daily. Plan: - Continue Venlafaxine ER 150 mg daily and Lamotrigine ER 250 mg daily. - Refill prescriptions for 90 days. - Monitor for any changes in mood or side effects. 2. Attention Deficit Hyperactivity Disorder (ADHD): - Patient reports benefit from Adderall XR 20 mg daily, especially on workdays, but has not taken it for about a month. Plan: - Reinstate Adderall XR 20 mg daily as needed for ADHD symptoms, particularly on workdays. - Educate patient on appropriate use and potential side effects. 3. Hormone Replacement Therapy (HRT): - Patient is on an estradiol patch, which may interact with Lamotrigine. Plan: - Continue monitoring for any changes in mood or side effects related to the interaction between estradiol and Lamotrigine. 4. Follow-up: - Schedule a follow-up appointment in three months to assess the patient's progress and medication management. 10/31/2024 Vanessa Vaughan, a female patient with a history of surgical Achilles repair and total hysterectomy, presents with concerns about intermittent anxiety and increased sweating, possibly related to hormone therapy. Intermittent anxiety and increased sweating Assessment: Patient reports experiencing intermittent anxiety at work, characterized by feeling shaky, difficulty catching breath, and increased sweating. These episodes occur randomly, approximately once a week. The patient suspects these symptoms may be related to hormonal changes, as she is on transdermal hormone replacement therapy following a total hysterectomy. Recent mammogram was normal, and patient is planning to schedule a colonoscopy. Differential diagnoses include hormonal imbalance, perimenopausal symptoms, or anxiety disorder. Plan: - Continue current transdermal hormone patch, changing weekly - Recommend follow-up with OBGYN to discuss potential adjustment of hormone therapy - Monitor frequency and severity of anxiety episodes and night sweats - Patient to report any changes or worsening of symptoms Mood disorder Assessment: Patient is currently stable on Lamotrigine ER 250 mg daily and Venlafaxine (Effexor) 150 mg daily for mood management. No current concerns with depression reported. Patient inquired about long-term use of these medications. Plan: - Continue Lamotrigine ER 250 mg PO daily - Continue Venlafaxine (Effexor) 150 mg PO daily - Educate patient on chronic use of medications: - Can be taken long-term if effective and well-tolerated - Discontinuation only if ineffective or side effects develop - Abrupt discontinuation of Venlafaxine can lead to withdrawal symptoms (e.g., headaches, brain zaps) - Monitor for continued efficacy and any side effects Attention Deficit Hyperactivity Disorder (ADHD) Assessment: Patient reports good response to current ADHD medication regimen with Adderall ER 20 mg. No concerns or side effects reported. Plan: - Continue Adderall ER 20 mg PO daily - Refill Adderall prescription (sent to pharmacy for processing) - Perform urine drug screen today Weight management Assessment: Patient reports restarting Wegovy after a brief pause. Has lost approximately 25 pounds and does not desire further significant weight loss. Notes improvement in arthritis symptoms with weight loss. Plan: - Continue Wegovy as prescribed - Monitor weight and arthritis symptoms the note is transcribed using speech recognition software. It is a reflection of a visit with the patient. It might have some inaccuracy, including medication names and transcribing errors, though efforts have been made to correct them. Plan Of Treatment Next Appt Details Provider Name:Deepak jack, 02/27/2025 03:45:00 PM, [address] [facility] [address] [facility] [address], [place], [address], Insurance Providers Payer Name Payer Address Payer Phone Subscriber Number Group Number Insured Name Patient Relationship to Insured Coverage Start Date Coverage End Date [employer] Pos [address] [place] [address] [id number] VAUGHAN MAITE Self - patient is the insured Medical (General) History Medical History History ICD Code Problems: Attention deficit hyperactivit y disorder, combined type Generalized anxiety disorder Mild recurrent major depression , abdominal aortic aneurysm: No atrial fibrillation: No chronic fatigue syndrome: No essential tremor: No hyperlipidemia: No hypertension: No Parkinson's disease: No restless leg syndrome: No stroke: No subdural hematoma: No type 1 diabetes mellitus: No type 2 diabetes mellitus: Yes vitamin B12 deficiency: No vitamin D deficiency: No Surgical History Surgery Date(Month/Year) Ligation of fallopian tube (17100219) Endometrial ablation (21002) Uterine myomectomy (39491309) Total hysterectomy (441613437) Hysterectomy (89050) 08/15/2022 Endometrial ablation (75524) 08/28/2017
--- OUTSIDE RECORDS SUMMARY | 2025-01-29 08:28 | XMS_ITS | Encounter Summary ---
Author Organization [facility] Address [address] [place] [address] Care Team Providers Care Deposit Clerk Name Role Phone Unavailable Primary Care Provider Unavailabl e Encounter Details Date Type Department Care Team (Late st Contact Info) Description 05/28/2003 Outpatient Historical [facility] Maternal and Ground Floor [facility] [address] [facility] [address] [address] Lanette Lou MD [address] [place] [address] Social History Tobacco Use Types Packs/Day Years Used Date Smoking Tobacco: Never Assessed Comments Unknown Sex and Gender Information Value Date Recorded Sex Assigned at Not on file 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
--- OUTSIDE RECORDS SUMMARY | 2025-01-29 08:28 | XMS_ITS | Encounter Summary ---
Author Organization [facility] Address [address] [place] [address] Care Team Providers Care Project Management Advisor Name Role Phone Unavailable Primary Care Provider Unavailabl e Encounter Details Date Type Department Care Team (Late st Contact Info) Description 05/28/2003 Outpatient Historical [facility] Arnold Monge MD [address] [place] [address] [place] [id number] BRAIN ANOMALY NEC (CMS/HCC) (Primary Dx) Social History Tobacco Use Types Packs/Day Years Used Date Smoking Tobacco: Never Assessed Comments Unknown Sex and Gender Information Value Date Recorded Sex Assigned at Not on file 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
--- OUTSIDE RECORDS SUMMARY | 2025-01-29 08:29 | XMS_ITS | Encounter Summary ---
Author Organization [employer] [facility] Address 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
--- OUTSIDE RECORDS SUMMARY | 2025-01-29 08:29 | XMS_ITS | Encounter Summary ---
Author Organization [facility] Address [address] [place] [address] Care Team Providers Care Remediation Project Engineer Name Role Phone Unavailable Primary Care Provider Unavailabl e Encounter Details Date Type Department Care Team (Late st Contact Info) Description 03/30/2003 Outpatient Historical [facility] PAT[facility] IN A BED Dorian Kwon MD [address] [facility] [address] [place] [address] Cherelle Roy NO ADDRESS ON FILE INFECTION-ANTEPARTU M (Primary Dx) Social History Tobacco Use Types Packs/Day Years Used Date Smoking Tobacco: Never Assessed Comments Unknown Sex and Gender Information Value Date Recorded Sex Assigned at Not on file 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
--- OUTSIDE RECORDS SUMMARY | 2025-01-29 08:29 | XMS_ITS | Encounter Summary ---
Author Organization [email or web address] Address [address] [place] [address] Care Team Providers Care Hat Maker Name Role Phone Unavailable Primary Care Provider Unavailabl e Encounter Details Date Type Department Care Team (Late st Contact Info) Description 05/19/2003 Outpatient Historical [facility] PATIENT IN A BED Amado Lopez MD [address] [place] [address] Arnold Monge MD [address] [facility] [address] [place], [place] [id number] MILD HYPEREMESIS-ANTEPAR (Primary Dx) Social History Tobacco Use Types Packs/Day Years Used Date Smoking Tobacco: Never Assessed Comments Unknown Sex and Gender Information Value Date Recorded Sex Assigned at Not on file 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
--- OUTSIDE RECORDS SUMMARY | 2025-01-29 08:29 | XMS_ITS | Encounter Summary ---
Author Organization [employer] Address [address] [place] [address] Care Team Providers Care Auto Mechanic Apprentice Name Role Phone Unavailable Primary Care Provider Unavailabl e Encounter Details Date Type Department Care Team (Late st Contact Info) Description 08/01/2003 Outpatient Historical [facility] PATIENT IN A BED Amado Lopez MD [address] [place] [address] Arnold Monge MD [address] [facility] [address] [place], [place] [address] ANTEPARTUM HEMORR NOS-ANTEPAR (Primary Dx) Social History Tobacco Use Types Packs/Day Years Used Date Smoking Tobacco: Never Assessed Comments Unknown Sex and Gender Information Value Date Recorded Sex Assigned at Not on file 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
--- OUTSIDE RECORDS SUMMARY | 2025-01-29 08:29 | XMS_ITS | Encounter Summary ---
Author Organization [employer] Address [address] [place] [address] Care Team Providers Care Access Analyst Name Role Phone Unavailable Primary Care Provider Unavailabl e Encounter Details Date Type Department Care Team (Late st Contact Info) Description 09/19/2003 Outpatient Historical HIS PATIENT IN A BED [place], Arnold Vu MD [address] [facility] [address] [place] [address] THRT LOCO LABOR-ANTEPART (Primary Dx) Social History Tobacco Use Types Packs/Day Years Used Date Smoking Tobacco: Never Assessed Comments Unknown Sex and Gender Information Value Date Recorded Sex Assigned at Not on file 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
--- OUTSIDE RECORDS SUMMARY | 2025-01-29 08:29 | XMS_ITS | Clinical Summary ---
Author Organization [facility] Address [address] [facility] [place] [address] Care Team Providers Care Mexican Food Maker Name Role Phone Unavailable Primary Care Provider Unavailabl e Allergies Active Allergy Reactions Criticality Noted Date Comments Penicillins Hives High 01/16/2021 Medications venlafaxine (EFFEXOR) 75 mg tablet Take 75 mg by mouth 3 times daily. Active metoprolol tartrate (LOPRESSOR) 25 mg tablet Take 25 mg by mouth daily. Active lamoTRIgine (LaMICtal) 100 mg tablet Take 100 mg by mouth daily. Active dextroamphetamine -amphetamine (ADDERALL) 30 mg tablet Take 30 mg by mouth daily. Active albuterol sulfate 90 mcg/Actuation inhalerIndication s:Mild intermittent asthma without status asthmaticus without complication Take 2 Puffs by inhalation every 6 hours as needed for Shortness of Breath. 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 Gender Identity Not on file Sexual Orientation Not on file Last Filed Vital Signs Vital Sign Reading Time Taken Comments Blood Pressure 139/102 01/16/2021 5:47 PM CDT Pulse 105 01/16/2021 5:18 PM CDT Temperature 37.2 C (98.9 F) 01/16/2021 5:18 PM CDT Respiratory Rate 16 01/16/2021 5:18 PM CDT Oxygen Saturation 99% 01/16/2021 5:18 PM CDT Inhaled Oxygen Concentration - - Weight 102.1 kg (225 lb) 01/16/2021 5:18 PM CDT Height 172.7 cm (5' 8) 01/16/2021 5:18 PM CDT Body Mass Index 34.21 01/16/2021 5:18 PM CDT Plan of Treatment Health Maintenance Due Date Last Done Comments DTAP/TDAP/TD VACCINES (1 - Tdap) 1993 HEPATITIS B VACCINES (1 of 3 - 19+ 3-dose series) 11/17 HPV/Cotest (21-29) 12/14/1995 CERVICAL CANCER SCREENING 2004 HPV/Cotest (30-65) 2004 PAP SMEAR 2004 BREAST CANCER SCREENING 2014 COLORECTAL SCREENING 12/14/2019 Colorectal Cancer Screening 12/14/2019 FIT-DNA Q 3 years 12/14/2019 FIT/FOBT Q 1 year 12/14/2019 Flex Sig/CT Colonography Q 5 years 12/14/2019 ZOSTER VACCINE (1 of 2) 2024 INFLUENZA VACCINE (#1) 2025 [place] [address]
--- OUTSIDE RECORDS SUMMARY | 2025-01-29 08:29 | XMS_ITS | Encounter Summary ---
Author Organization [employer] Address 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
--- OUTSIDE RECORDS SUMMARY | 2025-01-29 08:29 | XMS_ITS | Encounter Summary ---
Author Organization [facility] Address 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
--- OUTSIDE RECORDS SUMMARY | 2025-01-29 08:29 | XMS_ITS ---
Author Organization [facility] Address [address] [facility] [address] [place], [place] [id number] Care Team Providers Care Meatcutter Name Role Phone CATY KEITA Unavailable [phone] Sunita Forde Unavailable Unavailable REASON FOR VISIT *Post operative Medications Medication SIG (Take, Route, Frequency, Duration) Notes Start Date End Date Status Medrol 4 MG as directed Orally 04/13/2024 Active methylPREDNISolone 4 MG as directed Orally one pack 024 Active Encounters Encounter Location Date Provider Diagnosis [facility] [address] [id number] 09/04/2024 CATY KEITA Plan Of Treatment No Information Progress Notes * Bernabe VAUGHANaDOB:1975 (49 yo F)Acc No.[id number]:09/04/2024 Patient: Inge LEON Provider: Erickson Keiat DPM :1975 A ge:48 Y S ex:Female Date:09/04/2024 Address:[address] [place] [id number] Subjective: * Chief Complaints: * 1 . *Post operative. * Medical History: * Medications: T aking methylPREDNISolone 4 MG Tablet Therapy Pack as directed Orally , Notes to Pharmacist: one pack, Taking Medrol 4 MG Tablet Therapy Pack as directed Orally Objective: * Vitals: Assessment: Plan: * Treatment: * Billing Information: * Visit Code: * Procedure Codes: * Electronic signature of CATY KEITA DPM on 01/29/2025 at 08:28 AM CDT Sign off status: Pending * Provider: Erickson Keita DPM Date: 09/04/2024 Generated for Franklin mckay/Uziel/Blair on: 0 01/29/2025 08:28 AM CDT
--- OUTSIDE RECORDS SUMMARY | 2025-01-29 08:29 | XMS_ITS | Patient Health Record ---
Author Organization [facility] Address [address] [place], [place] [id number] Care Team Providers Care Fur Puller Name Role Phone CATY KEITA Unavailable [phone] Sunita Forde Unavailable Unavailable CATY LOZA Unavailable [phone] Allergies No Known Allergies Reason For Referral No Information Medications Medication SIG (Take, Route, Frequency, Duration) Notes Start Date End Date Status Medrol 4 MG as directed Orally 04/13/2024 Active methylPREDNISolone 4 MG as directed Orally one pack 024 Active Immunizations Vaccine Route Administration Date Status Comme nts Influenza, high dose seasonal Unknown 10/25/2023 Refuse d Pneumococcal conjugate PCV 13 Unknown 10/25/2023 Refuse d Social History Tobacco Use: Social History Observation Description Date Details (start date - stop date) Never Smoker NA - NA Tobacco Control (Standard) Question Answer Notes Tobacco use: Nonsmoker Vital Signs Height-cm 172.72 cm 06/01/2024 Weight-kg 95.25 kg 06/01/2024 Height 68 in 06/01/2024 Weight 210 lbs 06/01/2024 BMI 31.93 kg/m2 06/01/2024 Procedures Procedure Date Ordered Date Performed Result Body Sit e PHYSICAL THERAPY 08/01/2024 09/19/2024 SEE PHYSICAL THERAP Y REPORT Encounters Encounter Location Date Provider [facility] [address] [place] [address] 07/06/2024 CATY KEITA [facility] [address] [place], [place] [id number] 04/13/2024 CATY KEITA Other acquired deformities of right foot M21.6X1 ; Achilles tendinitis, right leg M76.61 ; Calcaneal spur of right foot M77.31 ; Primary osteoarthritis, right ankle and foot M19.071 and Pain in right foot M79.671 [facility] [place] [address] [address] [place] [id number] 06/01/2024 CATY KEITA Achilles tendinitis of right lower extremity M76.61 ; Other acquired deformities of right foot M21.6X1 and Pain in right foot M79.671 [facility] [place] [address] [address] [place] [id number] 07/13/2024 CATY KEITA Other acquired deformities of right foot M21.6X1 ; Achilles tendinitis of right lower extremity M76.61 ; Pain in right foot M79.671 and Encounter for other specified surgical aftercare Z48.89 [facility] [place] [address] [address] [place] [id number] 07/27/2024 CATY KEITA Other acquired deformities of right foot M21.6X1 ; Achilles tendinitis of right lower extremity M76.61 ; Pain in right foot M79.671 and Encounter for other specified surgical aftercare Z48.[address] [id number] 08/24/2024 CATY KEITA Other acquired deformities of right foot M21.6X1 ; Achilles tendinitis of right lower extremity M76.61 and Encounter for other specified surgical aftercare Z48.89 [facility] [place] [address] [address] [place] [id number] 09/14/2024 CATY KEITA Other acquired deformities of right foot M21.6X1 ; Achilles tendinitis of right lower extremity M76.61 and Encounter for other specified surgical aftercare Z48.89 [facility] [place] [address] [facility] [address] [place] [id number] 06/19/2024 CATY KEITA [facility] [address] [place], [place] [phone] 07/28/2024 CATY KEITA [facility] [place] [address] [facility] [address] [place], [place] [id number] 08/10/2024 CATY KEITA [facility] [place] [address] [facility] [address] [place] [id number] 09/14/2024 CATY KEITA [facility] [place] [address] [facility] [address] [place], [place] [id number] 01/04/2025 CATY KEITA Assessments Encounter Date Diagnosis (ICD Code) Assessment Notes Treatment Notes Treatment Clinical Notes Section Notes 04/13/2024 Other acquired deformities of right foot (ICD-10 - M21.6X1) 06/01/2024 Achilles tendinitis of right lower extremity (ICD-10 - M76.61) 07/13/2024 Other acquired deformities of right foot (ICD-10 - M21.6X1) 07/13/2024 Achilles tendinitis of right lower extremity (ICD-10 - M76.61) 07/27/2024 Other acquired deformities of right foot (ICD-10 - M21.6X1) 06/01/2024 Other acquired deformities of right foot (ICD-10 - M21.6X1) 08/24/2024 Other acquired deformities of right foot (ICD-10 - M21.6X1) Recommend Tubigrip to help swelling and avoid skin irritation from CAM boot. Aamir did not have Tubigrip so I suggested she obtain in OTC. Recommend OTC hydrocortisone cream for skin irritation. Continue CAM boot and follow Dr Keita's restrictions. I explained that the foot can have puffiness for up to 6 months following surgery 09/14/2024 Other acquired deformities of right foot (ICD-10 - M21.6X1) Will contact PT Shoes: Patient may return to normal shoes as tolerated. 07/27/2024 Achilles tendinitis of right lower extremity (ICD-10 - M76.61) Dispense: A cam walker was fitted and dispensed. The patient was instructed in its use. She was told to remain NWB Refer to PT 08/24/2024 Achilles tendinitis of right lower extremity (ICD-10 - M76.61) 06/01/2024 Pain in right foot (ICD-10 - M79.671) 09/14/2024 Achilles tendinitis of right lower extremity (ICD-10 - M76.61) 07/13/2024 Pain in right foot (ICD-10 - M79.671) 04/13/2024 Achilles tendinitis, right leg (ICD-10 - M76.61) Dispense: A cam walker was fitted and dispensed. The patient was instructed in its use. Physical therapy ordered Recommend that the patient obtain over the counter topical Voltaren Gel 1%. I educated the patient on its use. 04/13/2024 Calcaneal spur of right foot (ICD-10 - M77.31) 07/13/2024 Encounter for other specified surgical aftercare (ICD-10 - Z48.89) 07/27/2024 Pain in right foot (ICD-10 - M79.671) 09/14/2024 Encounter for other specified surgical aftercare (ICD-10 - Z48.89) 08/24/2024 Encounter for other specified surgical aftercare (ICD-10 - Z48.89) 07/27/2024 Encounter for other specified surgical aftercare (ICD-10 - Z48.89) 04/13/2024 Primary osteoarthritis, right ankle and foot (ICD-10 - M19.071) 04/13/2024 Pain in right foot (ICD-10 - M79.671) 06/01/2024 Other We discussed katarzyna th conservative and surgical treatment options. We discussed the intra-operative and post-operative treatment course. We discussed the risks and complications including, but not limited to: pain, infection, swelling, numbness, under-correction, over-correction, stiffness, no improvement, and need for further surgery. No guarantees were given, nor implied. Questions encouraged and answered. Consent reviewed and placed in chart. The following procedures are proposed - Excision of Alma's deformity, achilles tendon repair 07/13/2024 Other Dressing Change: The old dressing was removed. Utilizing aseptic technique, a new sterile compression dressing was applied. Patient was instructed to keep it dry and not remove it. BK cast applied Plan Of Treatment No Information Insurance Providers Payer Name Payer Address Payer Phone Subscriber Number Group Number Insured Name Patient Relationship to Insured Coverage Start Date Coverage End Date [employer] [address] [facility] [place] [phone] [id number] Bonnie Inge Self - patient is the insured Medical (General) History Medical History History ICD Code asthma - mild intermittent Arthritis Surgical History Surgery Date(Month/Year) Hysterectomy
[2025-01-29 08:44] VITALS: BP 129/91; PULSE 75; RESP 16; TEMP 36.4; O2SAT 98; BMI 29.2
--- NOTE | 2025-01-29 09:13 | WPDANESEPPF ---
Anes - Initial Pre Proc Eval Procedure: Operation Date: 01/29/25 10:00 Proposed Procedures p Screening Colonoscopy - Walter Triana MD Date/Time: 01/29/25 09:13 Surgeon: Walter Triana MD Pre Op Diagnosis: Screening Neoplasm of Colon Patient Data Age: 49 Gender: F Height: 1.73 m Weight: 87.1 kg Last Vital Signs Temp 97.5 F L 01/29/25 08:44 Pulse 75 01/29/25 08:44 Resp 16 01/29/25 08:44 BP 129/91 H 01/29/25 08:44 Pulse Ox 98 01/29/25 08:44 O2 Del Method Room Air 01/29/25 08:44 Allergies Allergy/AdvReac Type Severity Reaction Status Date / Time Penicillins Allergy Unknown Hives Verified 01/29/25 08:40 Home Medications ?Medication ?Instructions ?Recorded ?Confirmed ?Type estradiol 0.05 mg/24 hr weekly 1 patch transdermal WEEKLY 12 08/12/22 01/29/25 Rx transdermal patch (Climara) months #4 ea dextroamphetamine-amphetamine ER 20 mg PO DAILY 06/28/24 01/29/25 History 20 mg 24hr capsule,extend release venlafaxine 150 mg 150 mg PO DAILY 06/28/24 01/29/25 History capsule,extended release 24 hr lamotrigine 250 mg tablet,extended 250 mg PO DAILY 01/24/25 01/29/25 History release 24 hr Patient hx anesthesia problems: none Family hx anesthesia problems: post op nausea/vomiting Results Review: All pre-operative results and documents have been reviewed as part of the pre-operative evaluation. [facility] Past Medical History Medical History (Updated 07/06/24 @ 13:11 by Arnold Keita DPM) Asthma Status post hysteroscopy (normal spontaneous vaginal delivery) x 2 History of depression and anxiety ADHD Surgical History Surgical History (Updated 08/10/22 @ 09:15 by Emily Paulino MD) S/P myomectomy 2020 S/P endometrial ablation 2020 S/P tubal ligation Family History Family History (Updated 06/20/22 @ 09:33 by Emily Paulino MD) Father Hypertension Family history of coronary artery disease Grandparent Diabetes mellitus Social History Social History Smoking status: Never smoker Alcohol intake: current Drinks per week: 1 Substance use: never Substance use type: does not use Lack of Transportation: No Lack of Food: Never True Current Housing: I Have Housing Concerned About Future Housing: No Difficulty Paying Gas/Electric Bills: No Difficulty Paying for Meds: No Currently Unemployed: No Education: Master's Degree or Higher Difficulty w/ Childcare or Family Care: No Living arrangements: with family Gender identity (if verbalized by the patient): Female Spiritual care concerns: No Anes - Eval Final PreProcedure Day of Procedure 01/29/25 09:13 Heart: regular rate and rhythm Lungs: clear to auscultation Airway: Mallampati scale class 1 Neurological: alert and oriented Last oral intake: 2 hours ASA classification: II Anesthetic plan: proceed Anesthesia type and monitoring: monitored anesthesia care Results Review: All pre-operative results and documents have been reviewed as part of the pre-operative evaluation. Informed Consent: The patient's anesthetic plan and its attendant risks and benefits were discussed with the patient/family/POA. Questions were solicited and answers provided to the satisfaction of the patient/family/POA.
[2025-01-29] MEDS: LACTATED RINGERS 1,000 ML 150 ML IV CONT (09:37)
--- NOTE | 2025-01-29 10:14 | PM.IMHP ---
H&P: HPI History of Present Illness Date/Time: 01/29/25 10:14 Chief Complaint: Screening colonoscopy Narrative: This is the patient's first colonoscopy. There are no GI symptoms and there is no family history of colorectal cancer. Review of Systems Review of Systems: All systems reviewed & are unremarkable except as noted in HPI and below PMFSH Past Medical History Medical History (Updated 01/29/25 @ 10:14 by Walter Triana MD) Asthma Status post hysteroscopy (normal spontaneous vaginal delivery) x 2 History of depression and anxiety ADHD Surgical History Surgical History (Updated 08/10/22 @ 09:15 by Emily Paulino MD) S/P myomectomy 2019 S/P endometrial ablation 2019 S/P tubal ligation Family History Family History (Updated 06/20/22 @ 09:33 by Emily Paulino MD) Father Hypertension Family history of coronary artery disease Grandparent Diabetes mellitus Social History Social History Smoking status: Never smoker Alcohol intake: current Drinks per week: 1 Substance use: never Substance use type: does not use Lack of Transportation: No Lack of Food: Never True Current Housing: I Have Housing Concerned About Future Housing: No Difficulty Paying Gas/Electric Bills: No Difficulty Paying for Meds: No Currently Unemployed: No Education: Master's Degree or Higher Difficulty w/ Childcare or Family Care: No Living arrangements: with family Gender identity (if verbalized by the patient): Female Spiritual care concerns: No Meds Home Medications and Allergies Home Medications ?Medication ?Instructions ?Recorded ?Confirmed ?Type estradiol 0.05 mg/24 hr weekly 1 patch transdermal WEEKLY 12 08/12/22 01/29/25 Rx transdermal patch (Climara) months #4 ea dextroamphetamine-amphetamine ER 20 mg PO DAILY 06/28/24 01/29/25 History 20 mg 24hr capsule,extend release venlafaxine 150 mg 150 mg PO DAILY 06/28/24 01/29/25 History capsule,extended release 24 hr lamotrigine 250 mg tablet,extended 250 mg PO DAILY 01/24/25 01/29/25 History release 24 hr Allergies Allergy/AdvReac Type Severity Reaction Status Date / Time Penicillins Allergy Unknown Hives Verified 01/29/25 08:40 Vital Signs Vital Signs - 24 hr 01/29/25 08:44 Temperature 97.5 F L Pulse Rate 75 Respiratory Rate 16 Blood Pressure 129/91 H Pulse Oximetry 98 Oxygen Delivery Room Air Exam Const: General: cooperative and healthy appearing Resp: Effort & Inspection: normal respiratory effort and able to speak in complete sentences Auscultation: clear to auscultation bilaterally Cardio: Rate: regular rate Rhythm: regular rhythm GI: Inspection: normal to inspection GI Palp: No No hepatosplenomegaly present Auscultation: normal bowel sounds Rectal Exam: deferred Skin: General skin exam: normal color Psych: Appearance: grossly normal Mental Status: mental status grossly normal Assessment and Plan Assessment and plan (1) Encounter for screening colonoscopy: Code(s): Z12.11 - Encounter for screening for malignant neoplasm of colon Status: Acute Assessment and Plan: The patient is deemed a good candidate for the procedure. Consent signed. Will proceed.
--- NOTE | 2025-01-29 10:30 | WPDANESPN ---
Anes - Prog Note Post-Op Date/Time: 01/29/25 10:30 Vital Signs: Last Vital Signs Temp 97.5 F L 01/29/25 08:44 Pulse 75 01/29/25 08:44 Resp 16 01/29/25 08:44 BP 129/91 H 01/29/25 08:44 Pulse Ox 98 01/29/25 08:44 O2 Del Method Room Air 01/29/25 08:44 Pain Score (VAS): no Patient Feedback: Patient satisfied with anesthetic care.
[2025-01-29 10:57] VITALS: BP 99/66; PULSE 71; RESP 16; O2SAT 94
[2025-01-29 11:07] VITALS: BP 104/87; PULSE 68; RESP 16; O2SAT 98
[2025-01-29 11:17] VITALS: BP 108/71; PULSE 66; RESP 17; O2SAT 100
== END 2025-01-29 11:27 | disposition home or self-care (01) ==
PROVIDERS: PCP Family Medicine; Referring Provider Obstetrics & Gynecology Gynecology; Visit Provider Internal Medicine Gastroenterology
PROC: 0DJD8ZZ Inspection of Lower Intestinal Tract, Via Natural or Artificial Opening Endoscopic (ICD-10-PCS; CPT 45378; principal; 2025-01-29 10:00)
DX: Z12.11 Encounter for screening for malignant neoplasm of colon (principal); D12.5 Benign neoplasm of sigmoid colon; D12.8 Benign neoplasm of rectum; K63.5 Polyp of colon
CPT/HCPCS: 45385

== ENCOUNTER 2025-01-29 08:21 | Outpatient (NON) | payer OTHER, SELFPAY ==
--- NOTE | 2025-01-29 | S_PTH ---
PATIENT: Inge Nicole LOC: [facility] U#:[id number] AGE/SX: 49/F ROOM: RE01/29/[address]: Walter Triana MD : 1975 BED: DIS: 01/29/2025 SPEC #: [id number] RECD: 01/30/25 08:47 STATUS: EVELINE REQ #: [id number] SIERRA: 01/29/25 00:[address]: Walter Triana DEPT: [facility] Surgical RECD BY: Misty Gallardo ENTERED: 01/30/25 08:48 SP TYPE: Surgical OTHR DR: Sushil ContehMD Tissues: A - Colon Polypectomy B - Colon Polypectomy C - Rectal Polyp Procedures: Hematoxylin and Eosin Stain Gross and Microscopic Level 4
--- OUTSIDE RECORDS SUMMARY | 2025-01-30 08:29 | XMS_ITS | Encounter Summary ---
Author Organization [facility] Address [address] [place] [address] Care Team Providers Care Physician Vice President Name Role Phone Unavailable Primary Care Provider Unavailabl e Encounter Details Date Type Department Care Team (Late st Contact Info) Description 08/01/2003 Outpatient Historical HIS PATIENT IN A BED Amado Lopez MD [address] [place] [address] Arnold Monge MD [address] [facility] [address] [place], [place] [id number] ANTEPARTUM HEMORR NOS-ANTEPAR (Primary Dx) Social History Tobacco Use Types Packs/Day Years Used Date Smoking Tobacco: Never Assessed Comments Unknown Sex and Gender Information Value Date Recorded Sex Assigned at Not on file 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
--- OUTSIDE RECORDS SUMMARY | 2025-01-30 08:29 | XMS_ITS | Patient Health Record ---
Author Organization [facility] Address [address] [place], [place] [address] Care Team Providers Care Imagery Analyst Name Role Phone CATY KEITA Unavailable [phone] Sunita Forde Unavailable Unavailable CATY LOZA Unavailable [phone] Allergies No Known Allergies Reason For Referral [...] REPORT Encounters Encounter Location Date Provider Diagnosis [facility] [address] [place] [address] 07/06/2024 CATY KEITA [facility] [place] [address] [place], [place] [id number] 04/13/2024 CATY KEITA Other acquired deformities of right foot M21.6X1 ; Achilles tendinitis, right leg M76.61 ; Calcaneal spur of right foot M77.31 ; Primary osteoarthritis, right ankle and foot M19.071 and Pain in right foot M79.671 [facility] [place] [address] [place] [id number] 06/01/2024 CATY KEITA Achilles tendinitis of right lower extremity M76.61 ; Other acquired deformities of right foot M21.6X1 and Pain in right foot M79.671 [facility] [place] [address] [place] [id number] 07/13/2024 CATY KEITA Other acquired deformities of right foot M21.6X1 ; Achilles tendinitis of right lower extremity M76.61 ; Pain in right foot M79.671 and Encounter for other specified surgical aftercare Z48.89 [facility] [place] [address] [place] [id number] 07/27/2024 CATY KEITA Other acquired deformities of right foot M21.6X1 ; Achilles tendinitis of right lower extremity M76.61 ; Pain in right foot M79.671 and Encounter for other specified surgical aftercare Z48.[address] [id number] 08/24/2024 CATY KEITA Other acquired deformities of right foot M21.6X1 ; Achilles tendinitis of right lower extremity M76.61 and Encounter for other specified surgical aftercare Z48.89 [facility] [place] [address] [place] [id number] 09/14/2024 CATY KEITA Other acquired deformities of right foot M21.6X1 ; Achilles tendinitis of right lower extremity M76.61 and Encounter for other specified surgical aftercare Z48.89 [facility] [place] [address] [facility] [address] [place] [id number] 06/19/2024 CATY KEITA [facility] [address] [place] [id number] 07/28/2024 CATY KEITA [facility] [place] [address] [facility] [address] [place] [id number] 08/10/2024 CATY KEITA [facility] [place] [address] [facility] [address] [place] [id number] 09/14/2024 CATY KEITA [facility] [place] [address] [facility] [address] [place], [place] [id number] 01/04/2025 CATY KEITA Assessments Encounter Date Diagnosis [...] Start Date Coverage End Date Aetna [address] [facility] [place] [phone] [id number] Bonnie Inge Self - patient is the insured Medical (General) History Medical History History ICD Code asthma - mild intermittent Arthritis Surgical History Surgery Date(Month/Year) Hysterectomy
--- OUTSIDE RECORDS SUMMARY | 2025-01-30 08:29 | XMS_ITS | Encounter Summary ---
Author Organization [facility] Address [address] [place] [address] Care Team Providers Care Warehouse Clerk Name Role Phone Unavailable Primary Care Provider Unavailabl e Encounter Details Date Type Department Care Team (Late st Contact Info) Description 05/28/2003 Outpatient Historical [facility] Maternal and Ground Floor S [facility] [address] 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
--- OUTSIDE RECORDS SUMMARY | 2025-01-30 08:29 | XMS_ITS ---
Author Organization [facility] Address [address] [facility] [address] [place], [place] [id number] Care Team Providers Care Research Manager Name Role Phone CATY KEITA Unavailable [phone] Sunita Forde Unavailable Unavailable REASON FOR VISIT *Post operative Medications Medication SIG (Take, Route, Frequency, Duration) Notes Start Date End Date Status Medrol 4 MG as directed Orally 04/13/2024 Active methylPREDNISolone 4 MG as directed Orally one pack 024 Active Encounters Encounter Location Date Provider Diagnosis [facility] [address] [id number] 09/04/2024 CATY KEITA Plan Of Treatment No Information Progress Notes * Bernabe VAUGHANaDOB:1975 (49 yo F)Acc No.[id number]:09/04/2024 Patient: Inge LEON Provider: Erickson Keita DPM :1975 A ge:48 Y S ex:Female Date:09/04/2024 Address:[address] [place] [id number] Subjective: * Chief Complaints: * 1 . [...] Electronic signature of CATY KEITA DPM on 01/30/2025 at 08:29 AM CDT Sign off status: Pending * Provider: Erickson Keita DPM Date: 09/04/2024 Generated for Franklin mckay/Uziel/Blair on: 0 01/30/2025 08:29 AM CDT
--- OUTSIDE RECORDS SUMMARY | 2025-01-30 08:29 | XMS_ITS | Patient Health Record ---
Author Organization [facility] [employer] [facility] Address [address] [facility] [address] [place] [address] Care Team Providers Care Nuclear Medicine Supervisor Name Role Phone Sushil Conteh MD Primary Care Provider Deepak Angulo Unavailable [phone] Carlee Silva Unavailable [phone] Allergies No Known Allergies Results Component Value Reference Range Notes UDT Reviewed date:04/13/2024 12:20:27 PM Interpretation: Performing Lab: Notes/Report: THC POS 0 - 50 ng/ml Cocaine N 0 - 300 ng/ml Amphetamine N 0 - 1000 ng/ml Buprenorphine (BUP) N 0 - 10 ng/ml Secobarbital (Bar) N 0 - 300 ng/ml Oxazepam (BZO) N 0 - 300 ng/ml 7-vutywafvnk-3,9-khwwnijh-6,3-diphenylpyrrolidine (DONTE P) N 0 - 300 ng/ml Methamphetamine (MET) N 0 - 1000 ng/ml Methylenedioxymethamphetamine (MDMA) N 0 - 500 ng/ml Morphine (MOP 300/TVZ3369) N 0 - 300 ng/ml Methadone (MTD) [...] Oxazepam (BZO) NEG 0 - 300 ng/ml 7-figbljqfdf-0,0-qzhactvo-7,3-diphenylpyrrolidine (DONTE P) NEG 0 - 300 ng/ml Methamphetamine (MET) NEG 0 - 1000 ng/ml Methylenedioxymethamphetamine (MDMA) NEG 0 - 500 ng/ml Morphine (MOP 300/ZIL5198) NEG 0 - 300 ng/ml Methadone (MTD) [...] Risk Notes Problem Mild recurrent major depression (60465778) Major depressive disorder, recurrent, mild (F33.0) Active confirmed Problem Generalized anxiety disorder (67349801) Generalized anxiety disorder (F41.1) Active confirmed Problem Attention deficit hyperactivity disorder, combined type (60026950) Attention-deficit hyperactivity disorder, combined type (F90.2) 11/30/19 24 Active confirmed Vital Signs Heart Rate 94 /min 04/13/2024 Height-cm 172.72 cm 10/31/2024 Blood pressure diastolic 83 mm Hg 04/13/2024 Weight-kg 88.27 kg 04/13/2024 Height 68.00 in 10/31/2024 Blood pressure systolic 129 mm Hg 04/13/2024 Weight 194.6 lbs 04/13/2024 BMI 29.59 kg/m2 04/13/2024 Encounters Encounter Location Date Provider Diagnosis [facility] [employer] [facility] [address] [facility] [address] [address] 02/14/2024 Deepak Bardales [facility] [employer] [facility] [address] [address] 04/13/2024 Deepak Bardales Attention-deficit hyperactivity disorder, combined type F90.2 ; Generalized anxiety disorder F41.1 and Major depressive disorder, recurrent, mild F33.0 [facility] [employer] [facility] [address] [facility] [address] [place] [address] 10/31/2024 Deepak Bardales Attention-deficit hyperactivity disorder, combined type F90.2 ; Generalized anxiety disorder F41.1 and Major depressive disorder, recurrent, mild F33.0 [facility] [employer] [facility] [address] [facility] [address] [place] [address] 01/29/2025 Deepak Bardales [facility], [facility] [address] [place] [address] 02/08/2024 Deepak Bardales Attention-deficit hyperactivity disorder, combined type F90.2 [facility], [facility] [address] [place] [address] 03/14/2024 Deepak Bardales [facility], [facility] [address] [place] [address] 05/12/2024 Deepak Bardales Attention-deficit hyperactivity disorder, combined type F90.2 [facility] [address] [place] [address] 05/19/2024 Deepak Bardales Attention-deficit hyperactivity disorder, combined type F90.2 [facility], [facility] [address] [place] [address] 06/22/2024 Deepak Bardales Attention-deficit hyperactivity disorder, combined type F90.2 [facility] [address] [place] [address] 07/25/2024 Deepak Bardales Attention-deficit hyperactivity disorder, combined type F90.2 [facility] [address] [place] [address] 09/08/2024 Deepak Bardales Attention-deficit hyperactivity disorder, combined type F90.2 [facility] [address] [place] [address] 10/09/2024 Carlee Silva Attention-deficit hyperactivity disorder, combined type F90.2 and Major depressive disorder, recurrent, mild F33.0 [facility] [address] [place] [address] 12/12/2024 Deepak Bardales Attention-deficit hyperactivity disorder, combined type F90.2 [facility], [facility] [address] [place] [address] 01/12/2025 Deepak Bardales Attention-deficit hyperactivity disorder, combined type F90.2 [facility], [facility] [address] [place] [address] 01/24/2025 Deepak Bardales Assessments Encounter Date Diagnosis [...] Details Provider Name:Deepak jack, 02/27/2025 03:45:00 PM, [address], [place], [address], Insurance Providers Payer Name Payer Address Payer Phone Subscriber Number Group Number Insured Name Patient Relationship to Insured Coverage Start Date Coverage End Date Aetna Pos [address] [place] [address] [id number] ALEXUS MAITE Self - patient is the insured [...] History Surgery Date(Month/Year) Ligation of fallopian tube (36253804) Endometrial ablation (94331) Uterine myomectomy (37086870) Total hysterectomy (020114523) Hysterectomy (52602) 08/15/2022 Endometrial ablation (14389) 08/28/2017
--- OUTSIDE RECORDS SUMMARY | 2025-01-30 08:29 | XMS_ITS | Encounter Summary ---
Author Organization [employer] [facility] Address [address] [place] [address] Care Team Providers Care Respiratory Clinician Name Role Phone Unavailable Primary Care Provider Unavailabl e Encounter Details Date Type Department Care Team (Late st Contact Info) Description 05/28/2003 Outpatient Historical [facility] Arnold Monge MD [address] [place] [address] [place] [address] BRAIN ANOMALY NEC (CMS/HCC) (Primary Dx) Social History Tobacco Use Types Packs/Day Years Used Date Smoking Tobacco: Never Assessed Comments Unknown Sex and Gender Information Value Date Recorded Sex Assigned at Not on file Legal Sex Female 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
--- OUTSIDE RECORDS SUMMARY | 2025-01-30 08:29 | XMS_ITS | Encounter Summary ---
Author Organization [employer] Address [address] [place] [address] Care Team Providers Care Supportability Engineer Name Role Phone Unavailable Primary Care Provider Unavailabl e Encounter Details Date Type Department Care Team (Late st Contact Info) Description 09/22/2003 Inpatient Historical [facility] PATIENT IN A BED Arnold Monge MD [address] [facility] [address] [place] [address] [address] DE[address] PAULA (Primary Dx) Social History Tobacco Use Types Packs/Day Years Used Date Smoking Tobacco: Never Assessed Comments Unknown Sex and Gender Information Value Date Recorded Sex Assigned at Not on file Legal Sex Female 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
--- OUTSIDE RECORDS SUMMARY | 2025-01-30 08:29 | XMS_ITS | Clinical Summary ---
Author Organization [facility] Address [address] [place] [address] Phone Care Team Providers Care Food Prep Worker Name Role Phone Erik Sorto MD Primary [...] on file Legal Sex Female 3:39 PM CHIEF CLERK Gender Identity Not on file Sexual Orientation [...] age to complete this topic Care Teams Food Prep Worker Relationship Specialty Start Date End Date Erik Sorto MD [address] [facility] [facility] [address] [address] PCP - General Family Medicine 07/06/17
--- OUTSIDE RECORDS SUMMARY | 2025-01-30 08:29 | XMS_ITS | Encounter Summary ---
Author Organization [employer] Address [address] [place] [address] Care Team Providers Care Career Technical Education Instructor Name Role Phone Unavailable Primary Care Provider Unavailabl e Encounter Details Date Type Department Care Team (Late st Contact Info) Description 09/19/2003 Outpatient Historical HIS PATIENT IN A BED [place], Arnold Vu MD [address] [facility] [address] [place] [address] THRT LOCO LABOR-ANTEPART (Primary Dx) Social History Tobacco Use Types Packs/Day Years Used Date Smoking Tobacco: Never Assessed Comments Unknown Sex and Gender Information Value Date Recorded Sex Assigned at Not on file Legal Sex Female 5:13 AM TANKROOM TENDER Gender Identity Not on file Sexual Orientation Not on file documented as of this encounter Plan of Treatment Not on file documented as of this encounter Visit Diagnoses Diagnosis Threatened premature labor, antepartum(644.03)- Primary Threatened premature labor, antepartum documented in this encounter
--- OUTSIDE RECORDS SUMMARY | 2025-01-30 08:30 | XMS_ITS | Encounter Summary ---
Author Organization [employer] Address [address] [place] [address] Care Team Providers Care Mva Reactor Operator Head Name Role Phone Unavailable Primary Care Provider Unavailabl e Encounter Details Date Type Department Care Team (Late st Contact Info) Description 03/30/2003 Outpatient Historical HIS PATIENT IN A BED Dorian Kwon MD [address] [facility] [address] [place] [address] Cherelle Roy NO ADDRESS ON FILE INFECTION-ANTEPARTU M (Primary Dx) Social History Tobacco Use Types Packs/Day Years Used Date Smoking Tobacco: Never Assessed Comments Unknown Sex and Gender Information Value Date Recorded Sex Assigned at Not on file Legal Sex Female 5:13 AM ELECTRICAL & INSTRUMENTATION SUPERVISOR Gender Identity Not on file Sexual Orientation Not on file documented as of this encounter Plan of Treatment Not on file documented as of this encounter Visit Diagnoses Diagnosis Infections of genitourinary tract antepartum- Primary documented in this encounter
--- OUTSIDE RECORDS SUMMARY | 2025-01-30 08:30 | XMS_ITS | Clinical Summary ---
Author Organization [employer] [facility] [employer] Address [address] [facility] [place] [address] Care Team Providers Care Carpenter Foreman Name Role Phone Unavailable Primary Care Provider [...] on file Legal Sex Female 5:13 AM DRILLING ENGINEERING MANAGER Gender Identity Not on file Sexual [...] [place] [address]
--- OUTSIDE RECORDS SUMMARY | 2025-01-30 08:30 | XMS_ITS | Encounter Summary ---
Author Organization [employer] Address [address] [place] [address] Care Team Providers Care Reimbursement Auditor Name Role Phone Unavailable Primary Care Provider Unavailabl e Encounter Details Date Type Department Care Team (Late st Contact Info) Description 05/19/2003 Outpatient Historical HIS PATIENT IN A BED Amado Lopez MD [address] [place] [address] Arnold Monge MD [address] [facility] [address] [place], [place] [address] MILD HYPEREMESIS-ANTEPAR (Primary Dx) Social History Tobacco Use Types Packs/Day Years Used Date Smoking Tobacco: Never Assessed Comments Unknown Sex and Gender Information Value Date Recorded Sex Assigned at Not on file Legal Sex Female 5:13 AM BLACK TOPPER Gender Identity Not on file Sexual Orientation Not on file documented as of this encounter Plan of Treatment Not on file documented as of this encounter Visit Diagnoses Diagnosis Mild hyperemesis gravidarum, antepartum- Primary documented in this encounter
--- OUTSIDE RECORDS SUMMARY | 2025-01-30 08:30 | XMS_ITS | Encounter Summary ---
Author Organization [employer] Address 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
--- OUTSIDE RECORDS SUMMARY | 2025-01-30 08:30 | XMS_ITS | Encounter Summary ---
Author Organization [employer] Address [address] [place] [address] Care Team Providers Care Independent Crop Consultant Name Role Phone Unavailable Primary Care Provider [...] on file Legal Sex Female 5:13 AM FLOOR SCRUBBER Gender Identity Not on file Sexual Orientation Not on file documented as of this encounter Plan of Treatment Not on file documented as of this encounter Visit Diagnoses Diagnosis Mild hyperemesis gravidarum, antepartum- Primary documented in this encounter
== END 2025-01-29 08:22 | disposition home or self-care (01) ==
PROVIDERS: PCP Family Medicine; Visit Provider Internal Medicine Gastroenterology
DX: Z12.11 Encounter for screening for malignant neoplasm of colon (principal); D12.5 Benign neoplasm of sigmoid colon; D12.8 Benign neoplasm of rectum; K63.5 Polyp of colon
CPT/HCPCS: 88305

== ENCOUNTER 2025-07-13 15:51 | Outpatient (CLI) | payer OTHER, SELFPAY ==
--- OUTSIDE RECORDS SUMMARY | 2024-05-04 09:40 | XMS_ITS ---
[facility] Organization [facility] Address [address] [place], [place] [id number] Care Team Providers Care Residential Door Installer Name Role Phone CATY KEITA Unavailable [phone] Sunita Forde Unavailable Unavailable REASON FOR VISIT CAM-WALKER/RIGHT HEEL CHECK Medications Medication SIG (Take, Route, Frequency, Duration) Notes Start Date End Date Status Medrol 4 MG Tablet Therapy Pack as directed Orally 04/13/2024 Active methylPREDNISolone 4 MG Tablet Therapy Pack as directed Orally one pack 10/25/2023 Ac tive Encounters Encounter Location Date Provider Diagnosis [facility] [address] [place], [place] [id number] 05/04/2024 CATY KEITA Plan Of Treatment No Information Progress Notes * Bernabe VAUGHANaDOB:1975 (49 yo F)Acc No.[id number]:05/04/2024 Patient: Inge Morrison Provider: Erickson Keita DPM :1975 A ge:48 Y S ex:Female Date:05/04/2024 Address:[address] [place] [id number] Subjective: * Chief Complaints: * C AM-WALKER/RIGHT HEEL CHECK * Medications: T akingmethylPREDNISolone 4 MG Tablet Therapy Pack as directed Orally , Notes to Pharmacist: one packMedrol 4 MG Tablet Therapy Pack as directed Orally Taking methylPREDNISolone 4 MG Tablet Therapy Pack as directed Orally , Notes to Pharmacist: one packTaking Medrol 4 MG Tablet Therapy Pack as directed Orally Billing Information: * Procedure Codes: * Electronic signature of CATY KEITA DPM on 07/13/2025 at 03:55 PM CITY CARRIER Sign off status: Pending * Provider: Erickson Keita DPM Date: 1 Generated for Franklin mckay/Uziel/Blair on: 09/13/2024 03:55 PM CITY CARRIER
--- OUTSIDE RECORDS SUMMARY | 2024-07-06 07:00 | XMS_ITS ---
Author Organization [facility] Address [address] [place], [place] [id number] Care Team Providers Care Procurement Accountant Name Role Phone CATY KEITA Unavailable [phone] Sunita Forde Unavailable Unavailable REASON FOR VISIT [facility] SUR[facility]ERY Encounters Encounter Location Date Provider Diagnosis [facility] [address] [facility] [address] [address] [place] [phone] 07/06/2024 CATY KEITA Plan Of Treatment No Information Progress Notes * ALEXUS BernabeaDOB:1975 (49 yo F)Acc No.[id number]:07/06/2024 Patient: Inge Morrison Provider: Erickson Keita DPM :1975 A ge:48 Y S ex:Female Date:07/06/2024 Address:[address] [place] [phone] Billing Information: * Procedure Codes: * Electronic signature of CATY KEITA DPM on 07/13/2025 at 03:56 PM [employer]SULTANT INTERNSHIP Sign off status: Pending * Provider: Erickson Keita DPM Date: 09/06/2023 Generated for Franklin mckay/Uziel/eTransmitting on: 09/13/2024 03:56 PM [employer]SULT[employer]
--- OUTSIDE RECORDS SUMMARY | 2024-09-04 10:30 | XMS_ITS ---
Author Organization [facility] Address [address] [place], [place] [id number] Care Team Providers Care Die Repair Name Role Phone CATY KEIAT Unavailable [phone] Sunita Forde Unavailable Unavailable REASON FOR VISIT *Post operative Medications Medication SIG (Take, Route, Frequency, Duration) Notes Start Date End Date Status Medrol 4 MG Tablet Therapy Pack as directed Orally 04/13/2024 Active methylPREDNISolone 4 MG Tablet Therapy Pack as directed Orally one pack 10/25/2023 Ac tive Encounters Encounter Location Date Provider Diagnosis [facility] [address] [place], [place] [id number] 09/04/2024 CATY KEITA Plan Of Treatment No Information Progress Notes * Bernabe VAUGHANaDOB:1975 (49 yo F)Acc No.[id number]:09/04/2024 Patient: Inge Morrison Provider: Erickson Keita DPM :1975 A ge:48 Y S ex:Female Date:09/04/2024 Address:[address] [place] [id number] Subjective: * Chief Complaints: * * Post operative * Medications: T akingmethylPREDNISolone 4 MG Tablet [...] KEITA DPM on 07/13/2025 at 03:56 PM SOLE DYER Sign off status: Pending * Provider: Erickson Keita DPM Date: 0 09/04/2024 Generated for Franklin mckay/Uziel/Blair on: 1 09/13/2024 03:56 PM SOLE DYER
--- OUTSIDE RECORDS SUMMARY | 2024-09-27 10:00 | XMS_ITS ---
Author Organization [facility] [employer] [facility] Address [address] [facility] [address] [place] [address] Care Team Providers Care It Application Support Analyst Name Role Phone Sushil Conteh MD Primary Care Provider Hever Rothman Unavailable [phone] Deepak Bardales Unavailable [phone] REASON FOR VISIT R/S- pt is home sick Social History Sex Assigned At : Social History Observation Description Sex Assigned At Female Encounters Encounter Location Date Provider Diagnosis [facility] [employer] [facility] [address] [place] [address] 09/27/2024 Deepak Bardales Plan Of Treatment Next Appt Details Provider Name:Hever Berrios, 08/13/2025 09:15:00 AM, [address], [place], [address], Progress Notes * MAITE VAUGHAN LDOB: [birth year] (49 yo F)Acc No.[id number]:09/27/2024 Patient: MAITE LEON Provider: TAJ DECKER :1975 A ge:48 Y S ex:Female Date:09/27/2024 Address:[address] [place], [place] [id number] Pcp:Sushil Conteh MD Subjective: * Chief Complaints: * R /S- pt is home sick Billing Information: * Procedure Codes: * Electronic signature of TAJ Pérez on 07/13/2025 at 03:56 PM LOST AND FOUND CLERK Sign off status: Pending * Provider: JOSE DECKERP Date: 0 09/27/2024 Generated for Franklin mckay/Uziel/Blair on: 1 09/13/2024 03:56 PM LOST AND FOUND CLERK
--- OUTSIDE RECORDS SUMMARY | 2025-03-22 10:30 | XMS_ITS ---
Author Organization [facility] Address [facility] [facility] [address] [place] [address] Care Team Providers Care Dog Races Manager Name Role Phone Sushil Conteh MD Primary Care Provider Hever Rothman Unavailable [phone] Deepak Bardales Unavailable [phone] REASON FOR VISIT Stuck in traffic Social History Sex Assigned At : Social History Observation Description Sex Assigned At Female Encounters Encounter Location Date Provider Diagnosis [facility] [employer] [facility] [address] [facility] [address] [place] [address] 03/22/2025 Deepak Bardales Plan Of Treatment Next Appt Details Provider Name:Hever Berrios, 08/13/2025 09:15:00 AM, [address], [facility] [address], [place], [address], Progress Notes * MAITE VAUGHAN LDOB: [birth year] (49 yo F)Acc No.[id number]:03/22/2025 Patient: MAITE LEON Provider: TAJ DECKER :1975 A ge:49 Y S ex:Female Date:03/22/2025 Address:[address] [place], [place] [address] Pcp:Sushil Conteh MD Subjective: * Chief Complaints: * S tuck in traffic Billing Information: * Procedure Codes: * Electronic signature of TAJ Pérez on 07/13/2025 at 03:56 PM STEP FINISHER Sign off status: Pending * [facility]: 0 03/22/2025 Generated for Franklin mckay/Uziel/Blair on: 1 09/13/2024 03:56 PM STEP FINISHER
--- OUTSIDE RECORDS SUMMARY | 2025-05-31 01:30 | XMS_ITS ---
Author Organization [facility] Address [address] [place], [place] [address] Care Team Providers Care Stock Mover Name Role Phone CATY KEITA Unavailable [phone] Sunita Forde Unavailable Unavailable Allergies No Known Allergies REASON FOR VISIT ft pain, swelling Medications Medication SIG (Take, Route, Frequency, Duration) Notes Start Date End Date Status methylPREDNISolone 4 MG Tablet Therapy Pack as directed Orally one pack 10/25/2023 Ac tive Medrol 4 MG Tablet Therapy Pack as directed Orally 04/13/2024 Active Vital Signs Height 68 in 05/31/2025 Height-cm 172.72 cm 05/31/2025 Encounters Encounter Location Date Provider Diagnosis [facility] [place] [address] [place], [place] [id number] 05/31/2025 CATY KEITA Scarring L90.5 ; Foot pain, right M79.671 ; 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 and Other acquired deformities of right foot M21.6X1 Assessments Encounter Date Diagnosis (ICD Code) Assessment Notes Treatment Notes Treatment Clinical Notes Section Notes 05/31/2025 Scarring (ICD-10 - L90.5) Instructed patient on desensitization of scar massage 05/31/2025 Foot pain, right (ICD-10 - M79.671) 05/31/2025 Alam's deformity of right heel (ICD-10 - M92.61) Monitor for now, pt told she may need repeat surgery 05/31/2025 Other acquired deformities of right foot (ICD-10 - M21.6X1) Plan Of Treatment Treatment Notes Assessment Notes Scarring Instructed patient o n desensitization of scar massage Alma's deformity of right heel Monito r for now, pt told she may need repeat surgery History and Physical Notes * HPI (History of Present Illness) Category Sub-Category Detail Notes Category Not es HPI New Complaint Patient complain s of an issue to the back of the right foot. Patient states it is numb and tingles. She states she cant wear shoes with backs and that it gets hot and swollen. , MA: JMR Examination Category Sub-Category Detail Notes Category Not es X-Ray RIGHT FOOT There is no evid ence of fracture, dislocation, or other osseous lesions. There has been some ossification of the achilles tendon Constitutional Constitutional The patient is a wake, alert, well developed, well groomed and well nourished. Dermatologic Skin findings: Skin is warm, dr y, supple with no breaks in the skin. Nail pathology: Nails 1-5 bilateral are normal in appearance and thickness. No discoloration. Ulcer: There is no evidence of ulceration noted at this time Hyperkeratotic Skin Lesion There is no e vidence of hyperkeratosis Musculoskeletal Muscle Strength Muscle strength is 5/5 in regards to dorsiflexion, plantarflexion, inversion, and eversion in bilateral lower extremities. Pain on palpation posterior right heel , mainly along the scar Foot Structure The foot structure i s noted to be normal bilaterally Gait There is normal gait noted Neurologic Muscle power: 5/5 bilaterally Gross sensation Gross sensation is i ntact to light touch. Vascular Dorsalis pedis pulse: 2/4 bilateral Posterior tibial pulse: 2/4 bilaterally Capillary refill: less than 3 seconds bilaterally Temperature gradient: within normal limi ts Progress Notes * Bernabe VAUGHANaDOB:1975 (49 yo F)Acc No.[id number]:05/31/2025 Patient: Inge Morrison Provider: Erickson Keita DPM :1975 A ge:49 Y S ex:Female Date:05/31/2025 Address:[address] [place], [place] [id number] Subjective: * Chief Complaints: * F t pain, swelling * HPI: H PI: New Complaint P atient complains of an issue to the back of the right foot. Patient states it is numb and tingles. She states she cant wear shoes with backs and that it gets hot and swollen. , MA: DANNY. * Medical History: Asthma - mild intermittent Arthritis Medical History Verified * Surgical History: Hysterectomy Surgical History verified. * Hospitalization/Major Diagno stic Procedure: No Hospitalization Documented. Hospitalization Verified. * Family History: N o Family History documented.. F amily History Verified.. * Social History: Social History Verified. No Social History documented. * Medications: T akingmethylPREDNISolone 4 MG Tablet Therapy Pack as directed Orally , Notes to Pharmacist: one packMedrol 4 MG Tablet Therapy Pack as directed Orally Medication List reviewed and reconciled with the patientTaking methylPREDNISolone 4 MG Tablet Therapy Pack as directed Orally , Notes to Pharmacist: one packTaking Medrol 4 MG Tablet Therapy Pack as directed Orally Medication List reviewed and reconciled with the patient * Allergies: N .K.D.A.yesAllergies Verified. Objective: * Vitals: H t: 68 in, Ht-cm: 172.72 cm. * Examination: C onstitutional: Constitutional T he patient is awake, alert, well developed, well groomed and well nourished. . D ermatologic: Skin findings: S kin is warm, dry, supple with no breaks in the skin. . Nail pathology: N ails 1-5 bilateral are normal in appearance and thickness. No discoloration. . Ulcer: T here is no evidence of ulceration noted at this time . Hyperkeratotic Skin Lesion T here is no evidence of hyperkeratosis . M usculoskeletal: Muscle Strength M uscle strength is 5/5 in regards to dorsiflexion, plantarflexion, inversion, and eversion in bilateral lower extremities. . Foot Structure T he foot structure is noted to be normal bilaterally . Pain on palpation p osterior right heel, mainly along the scar. Gait T here is normal gait noted . N eurologic: Muscle power: 5 /5 bilaterally . Gross sensation G ross sensation is intact to light touch. . V ascular: Dorsalis pedis pulse: 2 /4 bilateral . Posterior tibial pulse: 2 /4 bilaterally . Capillary refill: l ess than 3 seconds bilaterally . Temperature gradient: w ithin normal limits . ? X -Ray: RIGHT FOOT T here is no evidence of fracture, dislocation, or other osseous lesions. There has been some ossification of the achilles tendon. ? Assessment: * Assessment: 1. S carring - L90.5 (Primary) 2 . F oot pain, right - M79.671 ?3. H aglund's deformity of right heel - M92.61 4 . O ther acquired deformities of right foot - M21.6X1 Plan: * Treatment: 2. H aglund's deformity of right heel Notes: Monitor for now, pt told she may need repeat surgery * Procedure Codes: 7 3630 X-RAY EXAM OF FOOT, Modifiers: RT Billing Information: * Visit Code: 40837 Office Visit, Est Pt., Level 3. * Procedure Codes: 15789 X-RAY EXAM OF FOOT. Modifiers: RT * Electronic signature of CATY KEITA DPM on 07/13/2025 at 03:57 PM ENVIRONMENTAL HEALTH SANITARIAN Sign off status: Pending * Provider: Erickson Keita DPM Date: 07/31/2024 Generated for Franklin mckay/Uziel/Blair on: 09/13/2024 03:57 PM ENVIRONMENTAL HEALTH SANITARIAN
--- OUTSIDE RECORDS SUMMARY | 2025-07-13 15:56 | XMS_ITS | Encounter Summary ---
Author Organization [facility] Address [address] [place] [address] Care Team Providers Care Reinforcement Maker Name Role Phone Unavailable Primary Care Provider Unavailabl e Encounter Details Date Type Department Care Team (Late st Contact Info) Description 05/28/2003 Outpatient Historical [facility] Maternal and Ground Floor S [facility] [address] [place] [address] Lanette Lou MD [address] [place] [address] Social History Tobacco Use Types Packs/Day Years Used Date Smoking Tobacco: Never Assessed Comments Unknown Sex and Gender Information Value Date Recorded Sex Assigned at Not on file Legal Sex Female 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
--- OUTSIDE RECORDS SUMMARY | 2025-07-13 15:56 | XMS_ITS | Encounter Summary ---
Author Organization [facility] Address [address] [place] [address] Care Team Providers Care Financial Recruiter Name Role Phone Unavailable Primary Care Provider Unavailabl e Encounter Details Date Type Department Care Team (Late st Contact Info) Description 08/01/2003 Outpatient Historical [facility] PATIENT IN A BED Amado Lopez MD [address] [address] Arnold Monge MD [address] [facility] [address] [place], [place] [address] ANTEPARTUM HEMORR NOS-ANTEPAR (Primary Dx) Social History Tobacco Use Types Packs/Day Years Used Date Smoking Tobacco: Never Assessed Comments Unknown Sex and Gender Information Value Date Recorded Sex Assigned at Not on file Legal Sex Female 5:13 AM DIRECTOR ENTERPRISE SYSTEMS Gender Identity Not on file Sexual Orientation Not on file documented as of this encounter Plan of Treatment Not on file documented as of this encounter Visit Diagnoses Diagnosis Unspecified antepartum hemorrhage, antepartum- Primary documented in this encounter
--- OUTSIDE RECORDS SUMMARY | 2025-07-13 15:56 | XMS_ITS | Clinical Summary ---
Author Organization [facility] Address [address] [address] Care Team Providers Care Warp Tier Name Role Phone Unavailable Primary Care Provider [...] on file Legal Sex Female 5:13 AM FISH AND GAME WARDEN Gender Identity Not on file Sexual Orientation [...]
--- OUTSIDE RECORDS SUMMARY | 2025-07-13 15:56 | XMS_ITS | Encounter Summary ---
Author Organization [facility] Address [address] [place] [address] Care Team Providers Care Teacher Aide Name Role Phone Unavailable Primary Care Provider Unavailabl e Encounter Details Date Type Department Care Team (Late st Contact Info) Description 09/19/2003 Outpatient Historical HIS PATIENT IN A BED [place], Arnold Vu MD [address] [facility] [address] [place] [address] THRT LOCO LABOR-ANTEPART (Primary Dx) Social History Tobacco Use Types Packs/Day Years Used Date Smoking Tobacco: Never Assessed Comments Unknown Sex and Gender Information Value Date Recorded Sex Assigned at Not on file Legal Sex Female 5:13 AM MISSILE FACILITIES REPAIRER Gender Identity Not on file Sexual Orientation Not on file documented as of this encounter Plan of Treatment Not on file documented as of this encounter Visit Diagnoses Diagnosis Threatened premature labor, antepartum(644.03)- Primary Threatened premature labor, antepartum documented in this encounter
--- OUTSIDE RECORDS SUMMARY | 2025-07-13 15:56 | XMS_ITS | Encounter Summary ---
Author Organization [facility] Address [facility] [place] [address] Care Team Providers Care Paleology Professor Name Role Phone Sunita Forde EUGENENAYELI Primary Care Provider [phone] Encounter Details Date Type Department Care Team (Late st Contact Info) Description 02/20/2020 [facility] at [address] [address] Prasanth Barber MA Social History Tobacco Use Types Packs/Day Years Used Date Smoking Tobacco: Never Smokeless Tobacco: Never Alcohol Use Standard Drinks/Week Comments Not Currently 0 (1 standard drink = 0.6 oz pur e alcohol) PHQ-2 Answer Date Recorded PHQ-2 Score 0 11/07/2019 Comments No Sex and Gender Information Value Date Recorded Sex Assigned at Not on file Legal Sex Female 2:27 PM STEEL MELTER Gender Identity Not on file Sexual Orientation Not on file 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 file COVID-19 Exposure Response Date Recorded In the last month, have you been in contact with someone who was confirmed or suspected to have Coronavirus / COVID-19? No / Unsure 02/22/2020 7:44 AM CDT documented as of this encounter Plan of Treatment Not on file documented as of this encounter Procedures Procedure Name Priority Date/Time Associated Diagnosis Comments CBC (OUTSIDE LAB) Routine 02/09/2020 BASIC METABOLIC PANEL Routine 02/09/2020 THYROID STIM HORMONE TSH Routine 02/09/2020 documented in this encounter Results * CBC (OUTSIDE LAB) (02/09/2020) WBC 8.6 HGB 13.0 HCT 39.9 PLT 358 02/09/2020 [facility] LAB-OUTSIDE/ABSTRACTED Edite d Result - Final * THYROID STIM HORMONE, TSH (02/09/2020) TSH 1.380 0.465 - 4.68 02/09/2020 us [facility] LABORAT[facility] Final Result * BASIC METABOLIC PANEL (02/09/2020) SODIUM S/P/B 136 POTASSIUM S/P/B 4.1 CO2 25 CHLORIDE S/P/B 101 GLUCOSE 93 mg/dL CALCIUM S/P/B 9.4 BUN 14 CREATININE S/P/B 0.80 0.5 - 1.0 EGFR NON-AFR. AMER. >60 <=90 02/09/2020 us Doc [facility] LABORAT[facility] Edited Resul t - Final documented in this encounter Visit Diagnoses Not on filedocumented in this encounter Additional Health Concerns Infection Onset Date Last Indicated Resolved Time COVID-19 Rule Out 07/01/2020 07/02/2020 07/10/2020 1:25 PM STEEL MELTER COVID-19 Rule Out 11/06/2020 11/06/2020 11/06/2020 10:57 AM CDT COVID-19 Rule Out 11/06/2020 11/06/2020 11/09/2020 12:19 PM CDT COVID-19 Rule Out 02/28/2021 02/28/2021 02/28/2021 9:47 AM CDT COVID-19 Rule Out 03/28/2021 03/28/2021 03/28/2021 8:22 AM CDT COVID-19 Rule Out 03/28/2021 03/28/2021 03/28/2021 11:53 PM CDT COVID-19 Rule Out 07/14/2021 07/16/2021 07/21/2021 12:32 AM STEEL MELTER COVID-19 Confirmed 07/16/2021 07/16/2021 12:32 AM STEEL MELTER Assessment Noted Time PHQ-9 Depression Total Score: 1 11/07/19 20 3:29 PM CDT documented as of this encounter Care Teams Paleology Professor Relationship Specialty Start Date End Date Sunita Forde APNP [address] [place] [id number] PCP - General NURSE PRACTITIONER 07/10/19 documented as of this encounter
--- OUTSIDE RECORDS SUMMARY | 2025-07-13 15:56 | XMS_ITS | Encounter Summary ---
Author Organization [facility] Address [address] [place] [address] Care Team Providers Care Facing End Trimmer Name Role Phone Unavailable Primary Care Provider Unavailabl e Encounter Details Date Type Department Care Team (Late st Contact Info) Description 03/30/2003 Outpatient Historical HIS PATIENT IN A BED Dorian Kwon MD [address] [place] [address] Cherelle Roy NO ADDRESS ON FILE INFECTION-ANTEPARTU M (Primary Dx) Social History Tobacco Use Types Packs/Day Years Used Date Smoking Tobacco: Never Assessed Comments Unknown Sex and Gender Information Value Date Recorded Sex Assigned at Not on file Legal Sex Female 5:13 AM DELIVERY ARCHITECT Gender Identity Not on file Sexual Orientation Not on file documented as of this encounter Plan of Treatment Not on file documented as of this encounter Visit Diagnoses Diagnosis Infections of genitourinary tract antepartum- Primary documented in this encounter
--- OUTSIDE RECORDS SUMMARY | 2025-07-13 15:56 | XMS_ITS | Encounter Summary ---
Author Organization [facility] Address [address] [place] [address] Care Team Providers Care Staff Counsel Name Role Phone Unavailable Primary Care Provider [...] on file Legal Sex Female 5:13 AM HSPT TUTOR Gender Identity Not on file Sexual Orientation Not on file documented as of this encounter Plan of Treatment Not on file documented as of this encounter Visit Diagnoses Diagnosis Other current maternal conditions classifiable elsewhere, antepartum- Primary documented in this encounter
--- OUTSIDE RECORDS SUMMARY | 2025-07-13 15:56 | XMS_ITS | Clinical Summary ---
Author Organization [facility] Address [address] [place] [address] Care Team Providers Care Graphite Disk Assembler Name Role Phone Sunita Forde Primary Care Provider [phone] Allergies Active Allergy Reactions Criticality Noted Date Comments Penicillins Hives 11/07/2019 Medications ADDERALL XR 30 MG 24 hr capsule Take 30 mg by mouth daily as needed. 1 Active ferrous sulfate, 65 mg elemental, 325 (65 FE) MG tablet daily. Active albuterol (ALBUTEROL SULFATE) (5 MG/ML) 0.5% nebulizer solutionIndicat ions:Asthma ([facility]/HCC) Take 0.5 mLs (2.5 mg total) by nebulization every 6 (six) hours as needed for Wheezing. 20 mL 1 Active VENLAFAXINE XR 75 MG 24 hr capsuleIndicati ons:Anxiety,Mod erate episode of recurrent major depressive disorder (CMS/HCC) TAKE 3 CAPSULES BY MOUTH EVERY DAY WITH FOOD 90 capsule 1 Active lamoTRIgine ER 200 MG 24 hr tablet Take 200 mg by mouth daily. 2 Active azithromycin 250 MG tabletIndicatio ns:Ear infection Take 2 tablets by mouth on day one then 1 daily for four days. 6 tablet 2 Active Additional Information Patient not taking.Reported on 07/23/2022 albuterol sulfate HFA 108 (90 Base) MCG/ACT inhalerIndicati ons:Wheezing Inhale 2 puffs into the lungs every 4 (four) hours as needed. 18 g 1 2 Active azithromycin (ZITHROMAX Z-STELLA) 250 MG tabletIndicatio ns:Ear infection Take 2 tablets by mouth on day one then 1 daily for four days. 6 tablet 2 Active Additional Information Patient not taking.Reported on 07/23/2022 MARAL FE .12/15 1.5-30 MG-MCG tabletIndicatio ns:Menorrhagia TAKE 1 TABLET BY MOUTH EVERY DAY, PATIENT SKIPS PLACEBO TABLETS 28 tablet 1 2 Active Additional Information Patient not taking.Reported on 07/23/2022 methylPREDNISol one, STELLA, (MEDROL DOSEPAK) 4 MG tabletIndicatio ns:Bronchitis Take 1 tablet (4 mg total) by mouth daily. Follow package directions 1 each 3 Active HYDROcodone-chl orpheniramine ER (TUSSIONEX) 10-8 MG/5ML suspensionIndic ations:cough Take 2.5-5 mLs by mouth every 12 (twelve) hours as needed. Indications: cough 115 mL 3 Active valACYclovir (VALTREX) 1 g tabletIndicatio ns:Cold sore TAKE 1 TABLET BY MOUTH TWICE A DAY 14 tablet 5 Active Active Problems Problem Noted Date Diagnosed Date Chills 11/06/2020 Low grade fever 11/06/2020 Body aches 11/06/2020 Nasal congestion 11/06/2020 Acute nonintractable headache, unspecified heada pedro type 11/06/2020 EKG, abnormal 02/19/2020 Palpitations 02/19/2020 Class 2 severe obesity due t o excess calories with serious comorbidity in adult 02/19/2020 Depression 11/07/2019 Anemia 11/07/2019 Hypertension 11/07/2019 ADHD (attention deficit hyperactivity disorder) 11/07/2019 Prediabetes 03/17/2019 Anxiety 11/01/2018 Seasonal allergic rhinitis due to pollen 019 Moderate episode of recurrent major depressive d isorder 07/09/2017 Generalized anxiety disorder 04/09/2017 Bipolar II disorder 04/09/2017 Autoimmune disease 04/09/2017 Asthma 04/09/2017 Chest pain Resolved Problems Problem Noted Date Diagnosed Date Resolved Date Cold sore 11/07/2019 04/15/2022 Grief reaction 11/01/2018 04/15/2022 Psychophysiological insomnia 04/09/2017 04/15/2022 Family History Medical History Relation Comments Heart Attack Father Hypertension Father Cancer Maternal Grandmother lung Heart Disease Maternal Grandmother Arthritis Mother Cancer Mother breast and lung Diabetes Paternal Grandmother Heart Disease Paternal Grandmother Relation Status Comments Brother Alive Father (Age 69) Maternal Grandfather (Age 76) Maternal Grandmother (Age 76) Mother Alive Paternal Grandfather (Age 71) Paternal Grandmother (Age 58) Social History Tobacco Use Types Packs/Day Years Used Date Smoking Tobacco: Never Smokeless Tobacco: Never Tobacco Cessation:Counseling Given: Yes Alcohol Use Standard Drinks/Week Comments Not Currently 0 (1 standard drink = 0.6 oz pur e alcohol) PHQ-2 Answer Date Recorded PHQ-2 Score 0 11/07/2019 Comments No Sex and Gender Information Value Date Recorded Sex Assigned at Not on file Legal Sex Female 2:27 PM TALLOW MAKER Gender Identity Not on file Sexual Orientation Not on file 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 file Last Filed Vital Signs Vital Sign Reading Time Taken Comments Blood Pressure 134/89 07/23/2022 10:03 AM TALLOW MAKER Pulse 89 07/23/2022 10:03 AM TALLOW MAKER Temperature 36.7 C (98 F) 07/23/2022 10:03 AM TALLOW MAKER Respiratory Rate 16 07/23/2022 10:03 AM TALLOW MAKER Oxygen Saturation 99% 07/23/2022 10:03 AM TALLOW MAKER Inhaled Oxygen Concentration - - Weight 92.1 kg (203 lb) 07/23/2022 10:03 AM TALLOW MAKER Height 172.7 cm (5' 8) 07/23/2022 10:03 AM TALLOW MAKER Body Mass Index 30.87 07/23/2022 10:03 AM TALLOW MAKER Plan of Treatment Health Maintenance Due Date Last Done Comments Colorectal Cancer Screening Colonoscopy (10 Years) 1974 Annual Physical 1977 Hepatitis C 1992 DTaP, Tdap and Td Vaccines ( 1 - Tdap) 1993 Hepatitis B Vaccines (1 of 3 - 19+ 3-dose series) 1993 Pneumococcal Vaccine: 50+ Years (1 of 2 - PCV) 1993 Mammogram Screening 2014 PHQ-2 (Physician Baylis) 07/19/2024 Zoster Vaccines (1 of 2) 2024 COVID-19 Vaccine (3 - 2024-2 6 season) 2025 04/05/2021, 03/15/2021 Influenza Adult (#1) 2025 Hepatitis A Vaccines Aged Out No long er eligible based on patient's age to complete this topic Meningococcal B Vaccine Aged Out No l onger eligible based on patient's age to complete this topic Meningococcal Vaccine Aged Out No juancarlos rik eligible based on patient's age to complete this topic RSV Immunizations Under 20 Months Aged Out No longer eligible b ased on patient's age to complete this topic Insurance AETNA AETNA Care Teams Graphite Disk Assembler Relationship Specialty Start Date End Date Sunita Forde APNP [address] [place] [id number] PCP - General NURSE PRACTITIONER 07/10/19
--- OUTSIDE RECORDS SUMMARY | 2025-07-13 15:56 | XMS_ITS | Encounter Summary ---
Author Organization [facility] Address [address] [place] [address] Care Team Providers Care Power Saw Mechanic Name Role Phone Unavailable Primary Care Provider Unavailabl e Encounter Details Date Type Department Care Team (Late st Contact Info) Description 09/22/2003 Inpatient Historical HIS PATIENT IN A BED [place], Arnold Vu MD [address] [facility] [address] [place] [id number] DEL [address] 1 DEG GEORGE-DEL (Primary Dx) Social History Tobacco Use Types Packs/Day Years Used Date Smoking Tobacco: Never Assessed Comments Unknown Sex and Gender Information Value Date Recorded Sex Assigned at Not on file Legal Sex Female 5:13 AM BUYING INTERN Gender Identity Not on file Sexual Orientation Not on file documented as of this encounter Plan of Treatment Not on file documented as of this encounter Visit Diagnoses Diagnosis First-degree perineal laceration, with delivery- Primary documented in this encounter
--- OUTSIDE RECORDS SUMMARY | 2025-07-13 15:56 | XMS_ITS | Encounter Summary ---
Author Organization [facility] Address [address] [place] [address] Care Team Providers Care Tie In Hand Name Role Phone Unavailable Primary Care Provider Unavailabl e Encounter Details Date Type Department Care Team (Late st Contact Info) Description 05/28/2003 Outpatient Historical [facility] Arnold Monge MD [address] [facility] [address] [place] [address] BRAIN ANOMALY NEC (CMS/HCC) (Primary Dx) Social History Tobacco Use Types Packs/Day Years Used Date Smoking Tobacco: Never Assessed Comments Unknown Sex and Gender Information Value Date Recorded Sex Assigned at Not on file Legal Sex Female 5:13 AM GERONTOLOGICAL NURSE PRACTITIONER Gender Identity Not on file Sexual Orientation Not on file documented as of this encounter Plan of Treatment Not on file documented as of this encounter Visit Diagnoses Diagnosis 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
--- OUTSIDE RECORDS SUMMARY | 2025-07-13 15:56 | XMS_ITS | Encounter Summary ---
Author Organization [facility] Address [address] [place] [address] Care Team Providers Care Still Operator Batch Or Continuous Name Role Phone Unavailable Primary Care Provider Unavailabl e Encounter Details Date Type Department Care Team (Late st Contact Info) Description 05/19/2003 Outpatient Historical HIS PATIENT IN A BED Amado Lopez MD [address] [address] Arnold Monge MD [address] [facility] [address] [place], [place] [address] MILD HYPEREMESIS-ANTEPAR (Primary Dx) Social History Tobacco Use Types Packs/Day Years Used Date Smoking Tobacco: Never Assessed Comments Unknown Sex and Gender Information Value Date Recorded Sex Assigned at Not on file Legal Sex Female 5:13 AM SHIP'S COOK Gender Identity Not on file Sexual Orientation Not on file documented as of this encounter Plan of Treatment Not on file documented as of this encounter Visit Diagnoses Diagnosis Mild hyperemesis gravidarum, antepartum- Primary documented in this encounter
--- OUTSIDE RECORDS SUMMARY | 2025-07-13 15:56 | XMS_ITS | Encounter Summary ---
Author Organization [facility] Address [address] [place] [address] Care Team Providers Care Diesel Fitter Mechanic Name Role Phone Unavailable Primary Care [...] on file Legal Sex Female 5:13 AM RESTORATION TECHNICIAN Gender Identity Not on file Sexual Orientation Not on file documented as of this encounter Plan of Treatment Not on file documented as of this encounter Visit Diagnoses Diagnosis Mild hyperemesis gravidarum, antepartum- Primary documented in this encounter
--- OUTSIDE RECORDS SUMMARY | 2025-07-13 15:56 | XMS_ITS | Encounter Summary ---
Author Organization [facility] Address [facility] [place] [address] Care Team Providers Care Assistant Import Manager Name Role Phone Sunita Forde Primary Care Provider [phone] Encounter Details Date Type Department Care Team (Late st Contact Info) Description 05/24/2023 [facility] Message Enc [facility] Family Medicine - 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
--- OUTSIDE RECORDS SUMMARY | 2025-07-13 15:57 | XMS_ITS | Clinical Summary ---
Author Organization [facility] Address [address] [place] [address] Phone Care Team Providers Care Spot Checker Name Role Phone Erik Sorto MD Primary [...] on file Legal Sex Female 3:39 PM HR INTERNSHIP Gender Identity Not on file Sexual Orientation Not on file Plan of Treatment Health Maintenance Due Date Last Done Comments Hepatitis C Virus (HCV) Screening 1974 TdaP Immunization 1974 Hepatitis B Immunization (1 of 3 - 19+ 3-dose series) 1993 Pap Smear 12/14/1995 Cervical Cancer Screening (CCS) 2004 HPV/Cotest 2004 Cologuard 12/14/2019 Colonoscopy 12/14/2019 Colorectal Cancer Screening 12/14/2019 Immunochemical Fecal Occult Blood 12/14/2019 Pneumococcal Immunization (5 0+ years) (1 of 1 - PCV) 2024 Zoster Immunization (1 of 2) 2024 Influenza Immunization (#1) 2025 SARS-COV-2 Immunization (1 - 2024- season) 2025 Respiratory Syncytial Virus (RSV) Immunization (Adult) (1 - 1-dose 75+ series) 2049 Human Papillomavirus (HPV) Immunization (No Doses Required) Completed Meningococcal Immunization (ACWY) Aged Out No longer eligible based on patient's age to complete this topic Rotavirus Immunization Aged Out No lo nger eligible based on patient's age to complete this topic Care Teams Spot Checker Relationship Specialty Start Date End Date Erik Sorto MD [address] [place] [address] [address] [place] [address] PCP - General Family Medicine 07/06/17
--- OUTSIDE RECORDS SUMMARY | 2025-07-13 15:57 | XMS_ITS | Patient Health Record ---
Author Organization [facility] Address [address] [place], [place] [id number] Care Team Providers Care Hedge Fund Accountant Name Role Phone KEYDERRICK MARIIC Unavailable [phone] Sunita Forde Unavailable Unavailable Allergies No Known Allergies Reason For Referral No Information Medications Medication SIG (Take, Route, Frequency, Duration) Notes Start Date End Date Status methylPREDNISolone 4 MG Tablet Therapy Pack as directed Orally one pack 10/25/2023 Ac tive Medrol 4 MG Tablet Therapy Pack as directed Orally 04/13/2024 Active Immunizations Vaccine Route Administration Date Status Comme nts Influenza, high dose seasonal Unknown 10/25/2023 Refuse d Pneumococcal conjugate PCV 13 Unknown 10/25/2023 Refuse d Social History Tobacco Use: Social History Observation Description Date Details (start date - stop date) Never Smoker NA - NA Social History Tobacco Use: Social Info Question Answer Notes Tobacco Control (Standard) Tobacco use: Nonsmoker Vital Signs Height-cm 172.72 cm 05/31/2025 Height 68 in 05/31/2025 Procedures Procedure Date Ordered Date Performed Result Body Sit e PHYSICAL THERAPY 08/01/2024 09/19/2024 SEE PHYSICAL THERAP Y REPORT Encounters Encounter Location Date Provider Diagnosis [facility] [address] [place], [place] [id number] 05/31/2025 CATY KEITA Scarring L90.5 ; Foot pain, right M79.671 ; 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 and Other acquired deformities of right foot M21.6X1 [facility] [address] [place], [place] [id number] 07/13/2024 CATY KEITA Other acquired deformities of right foot M21.6X1 ; Achilles tendinitis of right lower extremity M76.61 ; Pain in right foot M79.671 and Encounter for other specified surgical aftercare Z48.89 [facility] [address] [place], [place] [id number] 07/27/2024 CATY KEITA Other acquired deformities of right foot M21.6X1 ; Achilles tendinitis of right lower extremity M76.61 ; Pain in right foot M79.671 and Encounter for other specified surgical aftercare Z48.[address] [id number] 08/24/2024 CATY KEITA Other acquired deformities of right foot M21.6X1 ; Achilles tendinitis of right lower extremity M76.61 and Encounter for other specified surgical aftercare Z48.89 [facility] [address] [place] [id number] 09/14/2024 CATY KEITA Other acquired deformities of right foot M21.6X1 ; Achilles tendinitis of right lower extremity M76.61 and Encounter for other specified surgical aftercare Z48.89 [facility] [address] [id number] 07/09/2025 CATY KEITA [facility] [address] [place] [id number] 07/28/2024 CATY KEITA [facility] [address] [place] [id number] 08/10/2024 CATY KEITA [facility] [address] [place] [id number] 09/14/2024 CATY KEITA [facility] [address] [place] [id number] 01/04/2025 CATY KEITA Assessments Encounter Date Diagnosis (ICD Code) Assessment Notes Treatment Notes Treatment Clinical Notes Section Notes 07/13/2024 Other acquired deformities of right foot [...] may return to normal shoes as tolerated. 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 The patient was instructed in its use. She was told to remain NWB Refer to PT 08/24/2024 Achilles tendinitis of right lower extremity (ICD-10 - M76.61) 07/13/2024 Pain in right foot (ICD-10 - M79.671) 07/13/2024 Encounter for other specified surgical aftercare (ICD-10 - Z48.89) 07/27/2024 Pain in right foot (ICD-10 - M79.671) 09/14/2024 Encounter for other specified surgical aftercare (ICD-10 - Z48.89) 05/31/2025 Other acquired deformities of right foot (ICD-10 - M21.6X1) 08/24/2024 Encounter for other specified surgical aftercare (ICD-10 - Z48.89) 07/27/2024 Encounter for other specified surgical aftercare (ICD-10 - Z48.89) 07/13/2024 Other Dressing Change: The old dressing was removed. Utilizing aseptic technique, a new sterile compression dressing was applied. Patient was instructed to keep it dry and not remove it. BK cast applied Plan Of Treatment No Information Insurance Providers Payer Name Payer Address Payer Phone Subscriber Number Group Number Insured Name Patient Relationship to Insured Coverage Start Date Coverage End Date [employer] [address] [place] [phone] [id number] Inge Nicole Self - patient is the insured Medical (General) History Medical History History ICD Code asthma - mild intermittent Arthritis Surgical History Surgery Date(Month/Year) Hysterectomy
--- OUTSIDE RECORDS SUMMARY | 2025-07-13 15:57 | XMS_ITS | Clinical Summary ---
Author Organization [facility] Address [address] [place] [address] Care Team Providers Care Supervisor Furnace Room Name Role Phone Unavailable Primary Care Provider Unavailabl e Source Comments [facility],non-owned Affiliates and Associated Physician Practices is amultiple site organization consisting of ambulatory clinics and hospital sitesin [place], [place], [place] and [place]. This disclosure is being madepursuant to the Care Everywhere program and may not contain all information available regarding this patient. Last updated 18.[facility] Allergies Active Allergy Reactions Criticality Noted Date Comments Penicillins Urticaria Medium 09/27/2020 Medications * Be aware that medications may not be up to date on this document. Alwaysverify current medications with the patient. Venlafaxine HCl (EFFEXOR PO) Active Levonorgestrel-Et hinyl Estrad (LUTERA PO) Active metoprolol succinate XL 24hr (TOPROL XL) 100 MG tablet Take 100 mg by mouth once daily Active albuterol HFA (PROVENTIL;VENTOL IN;PROAIR) 108 (90 Base) MCG/ACT inhalerIndication s:Mild intermittent asthma with acute exacerbation (HCC) Inhale 2 puffs by mouth every 4 hours 1 Inhaler 06/23/2019 Active lamoTRIgine (LAMICTAL) 100 MG tablet Take 100 mg by mouth 2 times daily Active Active Problems No known active problems Family History Medical History Relation Name Comments ADHD Neg Hx Allergies Neg Hx Aneurysm Neg Hx Asthma Neg Hx Autoimmune Disease Neg Hx Bipolar Disorder Neg Hx CVA<55(male) Neg Hx CVA<65(female) Neg Hx Cancer - Breast Neg Hx Cancer - Colon Neg Hx Cancer - Other Neg Hx Cancer - Ovarian Neg Hx Cancer - Pancreatic Neg Hx Cancer - Prostate Neg Hx Childhood Hearing Disorder Neg Hx Clotting Disorder Neg Hx Depression Neg Hx Diabetes Neg Hx Eczema Neg Hx Genetic Neg Hx Heart defect Neg Hx Hypercholesterolemia Neg Hx Hypertension Neg Hx NH<55(male) Neg Hx NH<65(female) Neg Hx Mental Health Neg Hx Migraine Neg Hx Osteoporosis Neg Hx Seizures Neg Hx Sudd. <30 Neg Hx Thyroid Disease Neg Hx Ulcerative Colitis Neg Hx Social History Tobacco Use Types Packs/Day Years Used Date Smoking Tobacco: Never Smokeless Tobacco: Never Alcohol Use Standard Drinks/Week Comments Not Currently 0 (1 standard drink = 0.6 oz pur e alcohol) Comments No Sex and Gender Information Value Date Recorded Sex Assigned at Not on file Legal Sex Female 5:52 AM PASSENGER SERVICE MANAGER Gender Identity Not on file Sexual Orientation Not on file Last Filed Vital Signs Vital Sign Reading Time Taken Comments Blood Pressure 120/80 09/27/2020 5:04 PM PASSENGER SERVICE MANAGER Pulse 96 09/27/2020 5:04 PM PASSENGER SERVICE MANAGER Temperature 36.8 C (98.2 F) 09/27/2020 5:04 PM PASSENGER SERVICE MANAGER Respiratory Rate 18 09/27/2020 5:04 PM PASSENGER SERVICE MANAGER Oxygen Saturation 97% 09/27/2020 5:04 PM PASSENGER SERVICE MANAGER Inhaled Oxygen Concentration - - Weight 104.3 kg (230 lb) 06/23/2019 4:56 PM PASSENGER SERVICE MANAGER Height 172.7 cm (5' 8) 06/23/2019 4:56 PM PASSENGER SERVICE MANAGER Body Mass Index 34.97 06/23/2019 4:56 PM PASSENGER SERVICE MANAGER Plan of Treatment Upcoming Encounters Date Type Department Care Team (Late st Contact Info) Description 07/16/2025 2:30 PM PASSENGER SERVICE MANAGER Office Visit [facility] [address] [place] [address], [address] [phone] [place] [address] [facility] [address] [place] [address] Health Maintenance Due Date Last Done Comments COLOGUARD (AGES 45-75) - COL ON CA SCREENING 1974 COLON MONITORING 1974 COLONOSCOPY - COLON CA SCREENING 1974 CT COLONOGRAPHY - COLON CA SCREENING 1974 Colorectal Cancer Screening 1974 FIT - COLON CA SCREENING 1974 FLEX SIG - COLON CA SCREENING 1974 LIPID TESTING 1974 MAMMOGRAM 1974 HIV SCREENING 1989 HEPATITIS C SCREENING 12/08/1992 DTAP/TDAP/TD VACCINES (1 - Tdap) 1993 HEPATITIS B VACCINE (1 of 3 - 19+ 3-dose series) 1993 PAP SMEAR 12/14/1995 DEPRESSION SCREENING 07/19/2024 PNEUMOCOCCAL VACCINE 50+ (1 of 1 - PCV) 2024 ZOSTER VACCINE (1 of 2) 2024 COVID-19 VACCINE (1 - 2024-2 6 season) 2025 INFLUENZA VACCINE (#1) 2025 HIB VACCINE Aged Out No longer eligi ble based on patient's age to complete this topic HPV VACCINE Aged Out No longer eligi ble based on patient's age to complete this topic MENINGOCOCCAL (Group B) VACC INE SHARED DECISION-MAKING Aged Out No longer eligibl e based on patient's age to complete this topic MENINGOCOCCAL GROUPS A/C/Y/W VACCINE Aged Out No longer eligible b ased on patient's age to complete this topic Insurance [employer]
--- OUTSIDE RECORDS SUMMARY | 2025-07-13 15:57 | XMS_ITS | Patient Health Record ---
Author Organization [facility] [address] [facility] Address [address] [facility] [address] [place] [address] Care Team Providers Care Department Chairperson Name Role Phone Sushil Conteh MD Primary Care Provider UnavailHever Sky Unavailable [phone] Deepak Bardales Unavailable [phone] Carlee Silva Unavailable [phone] Allergies No Known Allergies Results Component Value Reference Range Notes UDT Reviewed date:11/01/2024 11:12:36 AM Interpretation: Performing Lab: Notes/Report: Amphetamine (AMP) POS 0 - 1000 ng/ml Buprenorphine (BUP) NEG 0 - 10 ng/ml Oxazepam (BZO) NEG 0 - 300 ng/ml Cocaine (COMPA) NEG 0 - 300 ng/ml Methamphetamine (mAMP) NEG 0 - 300 ng/ml Methylenedioxymethamphetamine (MDMA) NEG 0 - 500 ng/ml Morphine (MOP) NEG 0 - 25 ng/ml Methadone (MTD) NEG 0 - 300 ng/ml Oxycodone (OXY) NEG 0 - 300 ng/ml THC POS 0 - 50 ng/ml x NEG 0 - 1000 ng/ml x NEG 0 - 1000 ng/ml x NEG 0 - 300 ng/ml x NEG 0 - 300 ng/ml x NEG 0 - 300 ng/ml UDT Reviewed date:03/29/2025 09:31:48 AM Interpretation: Performing Lab: Notes/Report: Amphetamine (AMP) P 0 - 1000 ng/ml Buprenorphine (BUP) N 0 - 10 ng/ml Oxazepam (BZO) N 0 - 300 ng/ml Cocaine (COMPA) N 0 - 300 ng/ml Methamphetamine (mAMP) P 0 - 300 ng/ml Methylenedioxymethamphetamine (MDMA) N 0 - 500 ng/ml Morphine (MOP) N 0 - 25 ng/ml Methadone (MTD) N 0 - 300 ng/ml Oxycodone (OXY) N 0 - 300 ng/ml THC N 0 - 50 ng/ml x N 0 - 1000 ng/ml x N 0 - 1000 ng/ml x N 0 - 300 ng/ml x N 0 - 300 ng/ml Reason For Referral No Information Medications Medication SIG (Take, Route, Frequency, Duration) Notes Start Date End Date Status Estradiol 0.05 MG/24HR Patch Weekly Transdermal 06/08/2023 Active lamoTRIgine ER 250 MG Tablet Extended Release 24 Hour 1 tablet Orally Once a day; Duration: 30 days Active Wegovy 1.7 MG/0.75ML Solution Auto-injector Subcutaneous; Duration: 28 Days Active Venlafaxine HCl ER 150 MG Capsule Extended Release 24 Hour TAKE 1 CAPSULE BY MOUTH DAILY; Duration: 90 Active Amphetamine-Dextroamphet ER 20 MG Capsule Extended Release 24 Hour 1 CAPSULE IN THE MORNING ORAL ONCE A DAY; Duration: 30 07/06/2025 Active predniSONE 20 MG Tablet Oral; Duration: 7 Days Active Venlafaxine HCl ER 150 MG Capsule Extended Release 24 Hour 1 capsule Oral Once a day; Duration: 90 days 03/28/2025 Active Immunizations Vaccine Route Administration Date Status Comme nts Pfizer Biontech Covid-19 Vac cine 2nd dose Unknown 03/15/2021 Administered Pfizer Biontech Covid-19 Vac cine 2nd dose Unknown 04/05/2021 Administered Social History Tobacco Use: Social History Observation Description Date Details (start date - stop date) Never Smoker NA - NA Sex Assigned At : Social History Observation Description Sex Assigned At Female Social History Social History Social Info Question Answer Notes Household: Marital Status: Drug/Alcohol: Social Info Question Answer Notes Drugs Have you used drugs other than those for medical reasons in the past 12 months? No AUDIT-C (Standard) Interpretation Negative Did you have a drink contain ing alcohol in the past year? Yes How often did you have six or more drinks on one occasion in the past year? Declined to specify (0 point) How many drinks did you have on a typical day when you were drinking in the past year? Declined to specify (0 point) How often did you have a drink containing alcohol in the past year? Monthly or less (1 point) Tobacco Use: Social Info Question Answer Notes Tobacco Control (Standard) Tobacco use: Nonsmoker Additional Details Category Social Info Options Details Migrated Social History Migrated Social History Alcohol Intake: Occasional 12/24/2021,Tobacco Years: Never smoker 05/13/2020,Smoking Status: 0 06/08/2023 Drug/Alcohol: Do you smoke marijuana? Den ies Do you drink alcohol? Socially Problems Problem Type SNOMED Code ICD Code Onset Dates Problem Status W/U Status Risk Notes Problem Information temporarily unavailable Major depressive disorder, recurrent, mild (F33.0) Active confirmed Problem Information temporarily unavailable Generalized anxiety disorder (F41.1) Active confirmed Problem Information temporarily unavailable Attention-deficit hyperactivity disorder, combined type (F90.2) Active confirmed Vital Signs Heart Rate 69 /min 03/28/2025 Blood pressure diastolic 84 mm Hg 03/28/2025 Height-cm 172.72 cm 03/28/2025 Weight-kg 90.72 kg 03/28/2025 Height 68.00 in 03/28/2025 Blood pressure systolic 120 mm Hg 03/28/2025 Weight 200 lbs 03/28/2025 BMI 30.41 kg/m2 03/28/2025 Encounters Encounter Location Date Provider Diagnosis [facility] [employer] [address] [facility] [address] [place] [address] 10/31/2024 Deepak Bardales Attention-deficit hyperactivity disorder, combined type F90.2 ; Generalized anxiety disorder F41.1 and Major depressive disorder, recurrent, mild F33.0 [facility] [employer] [facility] [address] [facility] [address] [place] [address] 03/28/2025 Deepak Bardales Attention-deficit hyperactivity disorder, combined type F90.2 ; Generalized anxiety disorder F41.1 and Major depressive disorder, recurrent, mild F33.0 [facility] [address] [place] [address] 07/25/2024 Deepak Bardales Attention-deficit hyperactivity disorder, combined type F90.2 [facility] [employer] [facility] [address] [place] [address] 09/08/2024 Deepak Bardales Attention-deficit hyperactivity disorder, combined type F90.2 [facility] [employer] [facility] [address] [place] [address] 10/09/2024 Carlee Silva Attention-deficit hyperactivity disorder, combined type F90.2 and Major depressive disorder, recurrent, mild F33.0 [facility], [facility] [address] [place] [address] 12/12/2024 Deepak Bardales Attention-deficit hyperactivity disorder, combined type F90.2 [facility], [facility] [address] [place] [address] 01/12/2025 Deepak Bardales Attention-deficit hyperactivity disorder, combined type F90.2 [facility], [facility] [address] [place] [address] 01/24/2025 Deepak Bardales [facility], [facility] [address] [place] [address] 01/29/2025 Deepak Bardales [facility] [address] [place] [address] 03/16/2025 Deepak Bardales Attention-deficit hyperactivity disorder, combined type F90.2 [facility], [facility] [address] [place] [address] 03/22/2025 Deepak Bardales Major depressive disorder, recurrent, mild F33.0 [facility] [address] [place] [address] 04/19/2025 Deepak Bardales Attention-deficit hyperactivity disorder, combined type F90.2 [facility], [facility] [address] [place] [address] 06/01/2025 Deepak Bardales Attention-deficit hyperactivity disorder, combined type F90.2 Assessments Encounter Date Diagnosis (ICD Code) Assessment Notes Treatment Notes Treatment Clinical Notes Section Notes 07/25/2024 Attention-defici t hyperactivity disorder, combined type (ICD-10 - F90.2) 09/08/2024 Attention-defici t hyperactivity disorder, combined type (ICD-10 - F90.2) 10/31/2024 Attention-defici t hyperactivity disorder, combined type (ICD-10 - F90.2) 12/12/2024 Attention-defici t hyperactivity disorder, combined type (ICD-10 - F90.2) 01/12/2025 Attention-defici t hyperactivity disorder, combined type (ICD-10 - F90.2) 03/16/2025 Attention-defici t hyperactivity disorder, combined type (ICD-10 - F90.2) 03/22/2025 Major depressive disorder, recurrent, mild (ICD-10 - F33.0) 10/09/2024 Attention-defici t hyperactivity disorder, combined type (ICD-10 - F90.2) 03/28/2025 Attention-defici t hyperactivity disorder, combined type (ICD-10 - F90.2) 04/19/2025 Attention-defici t hyperactivity disorder, combined type (ICD-10 - F90.2) 06/01/2025 Attention-defici t hyperactivity disorder, combined type (ICD-10 - F90.2) 10/31/2024 Generalized anxiety disorder (ICD-10 - F41.1) stable 03/28/2025 Generalized anxiety disorder (ICD-10 - F41.1) stable 10/09/2024 Major depressive disorder, recurrent, mild (ICD-10 - F33.0) 03/28/2025 Major depressive disorder, recurrent, mild (ICD-10 - F33.0) Estrogen derivatives (eg, Estradiol Transdermal Patch Weekly 0.05 MG/24HR) may decrease the serum concentration and pharmacologic effects of lamotrigine. 10/31/2024 Major depressive disorder, recurrent, mild (ICD-10 - F33.0) Estrogen derivatives (eg, Estradiol Transdermal Patch Weekly 0.05 MG/24HR) may decrease the serum concentration and pharmacologic effects of lamotrigine. 10/31/2024 Vanessa Vaughan, a female patient with [...] efforts have been made to correct them. 03/28/2025 Vanessa Vaughan, a patient with a history of psychiatric medication use, presents for medication management and reports recent treatment for sinus infections. Medication Management Assessment: Patient is currently stable on her psychiatric medication regimen, which includes venlafaxine ER 150 mg, lamotrigine ER 250 mg, and Adderall XR 20 mg. She reports no significant mood changes or anxiety. Recent treatment with prednisone for sinus infection caused some side effects, including feeling flushed and as if she ran a mile, but did not significantly impact her psychiatric stability. Patient also reports a recent increase in estradiol patch strength due to night sweats, possibly related to menopause. Plan: - Continue venlafaxine ER - Continue lamotrigine ER - Continue Adderall XR - Refill Adderall XR for approximately 4 months - Follow up in about 4 months Possible Menopausal Symptoms Assessment: Patient reports recent increase in estradiol patch strength due to excessive night sweats, which her healthcare provider attributed to possible menopause. The change in hormone therapy has been in effect for a couple of weeks, with some improvement noted. Plan: - Continue current estradiol patch at increased strength - Monitor effectiveness of increased estradiol dose in managing night sweats the note is transcribed using speech recognition software. It is a reflection of a visit with the patient. It might have some inaccuracy, including medication names and transcribing errors, though efforts have been made to correct them. Plan Of Treatment Next Appt Details Provider Name:Hever Berrios, 08/13/2025 09:15:00 AM, [address] [facility], [place], [address], Insurance Providers Payer Name Payer Address Payer Phone Subscriber Number Group Number Insured Name Patient Relationship to Insured Coverage Start Date Coverage End Date [employer] Pos [address] [place] [address] [id number] MAITE VAUGHAN Self - patient is the insured Medical [...] History Surgery Date(Month/Year) Ligation of fallopian tube (23165069) Endometrial ablation (74780) Uterine myomectomy (41833481) Total hysterectomy (863078123) Hysterectomy (21010) 08/15/2022 Endometrial ablation (92754) 08/28/2017
[2025-07-13 16:50] LABS: Hematocrit 41.3 % (35.0-49.0); Hemoglobin 13.7 g/dL (12.0-15.0); Immature Granulocyte Percent A 0.5 % (0.0-0.0); Lymphocytes Absolute Auto 2.15 K/mm3 (1.10-4.50); Mean Corpuscular HGB Conc 33.2 g/dL (32-36); Mean Corpuscular Hemoglobin 29.8 pg (27.0-31.0); Mean Corpuscular Volume 89.8 fL (78.0-102.0); Nucleated Red Blood Cells Absolute Auto 0.00 K/mm3 (0.00-0.00); Nucleated Red Blood Cells Perc 0.0 % (0-0.0); Platelet Count Result 316 K/mm3 (150-420); Red Blood Count 4.60 M/mm3 (4.20-5.40); White Blood Count 13.1 K/mm3 (4.8-10.8)
[2025-07-13 17:02] LABS: Alanine Aminotransferase 30 U/L (6-35); Albumin Level 4.8 g/dL (3.5-5.1); Alkaline Phosphatase 91 U/L (38-126); Anion Gap 12 mmol/L (4-12); Aspartate Amino Transferase 26 U/L (14-36); Bilirubin,Total 0.3 mg/dL (0.2-1.3); Blood Urea Nitrogen 17 mg/dL (7-17); Calcium 9.7 mg/dL (8.4-10.2); Carbon Dioxide 24 mmol/L (22-30); Chloride 103 mmol/L (98-107); Cholesterol 222 mg/dL (0-200); Estimated Glomerular Filt Rate > 60; Glucose 104 mg/dL (65-110); HDL Direct 54 mg/dL; Osmolality Calculated 289 mOsm/kg (285-295); Potassium 4.0 mmol/L (3.4-5.0); Sodium 139 mmol/L (137-145); Total Protein 7.3 g/dL (6.3-8.2); Triglycerides 392 mg/dL (<150)
[2025-07-13 17:33] LABS: Thyroid Stimulating Hormone 1.080 uIU/mL (0.465-4.680)
== END 2025-07-13 15:52 | disposition home or self-care (01) ==
LOC: CHSLAB 15:54
PROVIDERS: PCP Family Medicine; Visit Provider Family Medicine
DX: E78.00 Pure hypercholesterolemia, unspecified (principal)
CPT/HCPCS: 36415; 80053; 80061; 84443; 85025